=== PATIENT | female | born 1940 | race Caucasian/White ===

== ENCOUNTER 2016-05-31 13:18 | Inpatient (IN) | payer MEDICARE ==
[2016-05-31] VITALS (7 sets, daily range): BP systolic 100–114; BP diastolic 52–64; PULSE 99–112; RESP 16–20; O2SAT 89–97
[~2016-05-31] VITALS: Ht 160 cm; Wt 61.4 kg
--- NOTE | 2016-05-31 13:56 | DRSVH ---
PROCEDURE: X-RAY CHEST, TWO VIEWS ([id number]) INDICATIONS: SOB TECHNIQUE: 2 views of the chest were acquired. COMPARISON: None. FINDINGS: Surgical changes and devices: None. Lungs and pleura: There is a large left pleural effusion. Streaky opacities are present at the right lung base. Mediastinum: Mediastinal contours are normal. Heart size is normal. Bones and chest wall: No suspicious bony abnormalities. Moderate degenerative changes are present wi thin the mid thoracic spine. Soft tissues appear unremarkable. IMPRESSION: 1. Large left pleural effusion. No prior studies are available to determine the acuity of this findin g. 2. Right basilar atelectasis. Dictated by: Sharri Dumont M.D. on 05/31/2016 at 13:53 Approved by: Sharri Dumont M.D. on 05/31/2016 at 13:54
--- NOTE | 2016-05-31 15:13 | ED.REPORT ---
HPI-General Illness Date of Service May 31, 2016 ED Provider: Hola Pena MD A 75 year old, previously healthy, female presents to the ED from [facility] with suspicion for recurrent left pleural effusion. At clinic today, she had recurrent chest pain and SOB that the patient noticed yesterday. She was sent from the clinic to the ED for further evaluation with suspicion for recurrent pleural effusion. CT at [facility] did not identify any cause of the pleural effusion. Per call-in report, Oxygen sat was in the 80's on room air. On arrival, she is 89% on room air. Associated symptoms include loss of appetite, and unintentional weight loss. She was recently diagnosed with Thoracentesis on 05/28/2016, with negative chest XRay. Nursing Notes Stated Complaint: SOB Chief Complaint: Respiratory Distress Nursing Notes Reviewed: Yes Allergies: Coded Allergies: tramadol (Verified Allergy, Severe, confusion, unbalanced, 05/31/16) codeine (Verified Allergy, Mild, itching, 05/31/16) Scheduled Dextroamphetamine/Amphetamine (Adderall) 10 Mg Tablet 10 MG PO DAILY Fluoxetine (Prozac) 20 Mg Capsule 20 MG PO DAILY General Time Seen by MD: 15:12 Chief Complaint Chest pain Hx Obtained From: Patient Arrived By: Walk-in Sudden in Onset?: No Onset Occurred: Yesterday Symptom Duration: Constant Severity: Current: Mild Severity: Maximum: Mild Recent Healthcare: Recent doctor visit Similar Sx Previous: No Past Medical History Past Medical History Pleural effusion with 1 liter of fluid taken off on Thursday, 5 days ago. First chest XRay for this condition was last week. Chest XRay was negative. CT [facility] 05/27/2016. She had a hemorrhoidectomy at outpatient surgery in [facility] and reports that she had no chest pain at that time. The week after this operation ,she started to get a cough, congestion, and back pain then went to a doctor who thought it was a cold. She had Flu Shot this year. Reports: Depression Past Surgical History hemorrhoidectomy at outpatient surgery in [facility]. Colonoscopy. Smoking History Never Smoker Ambulatory Status Independent Review of Systems loss of appetite. Full Review of Systems Constitutional: Reports: Recent wt loss, Denies: Chills, Fever Respiratory: Reports: Shortness of breath Cardiovascular: Reports: Chest pain Complete sys rev & neg: except as marked. Physical Exam Vital Signs Vital Signs Date Time Temp Pulse Resp B/P Pulse Ox O2 Delivery O2 Flow Rate FiO2 05/31/16 18:59 101 18 109/61 93 Nasal Cannula 2 05/31/16 18:16 112 20 105/52 91 Nasal Cannula 2 05/31/16 17:38 112 20 109/60 91 Nasal Cannula 2 05/31/16 15:42 104 20 101/55 89 05/31/16 13:21 36.1 104 18 114/62 97 Room Air Initial VS: Reviewed General/Constitutional: Awake, Alert No distress. Patient is speaking in full sentences. Head / Eyes: Atraumatic, Normocephalic, PERRL, EOMI ENT: Atraumatic, Airway patent Diminished Breath Sounds: Positive: Decreased L (Decreased breath sounds to left base.) Dull to percussion 2[address] on left side. Cardiovascular: Heart rate NL, Regular rhythm, Heart sounds NL, No gallop Heart Rate / Rhythm: Positive: Tachycardia (borderline tachycardia) Heart Sounds / Murmur: Positive: Murmur present... (2/6 systolic murmur) Abdomen: Soft, Non-tender, No palpable mass Upper Extremities Upper Extremity / MS: Atraumatic, Inspection NL Skin: Warm, Dry Neurologic: Oriented X3, Speech NL Interpretation & Diagnostics Interpretation & Diagnostics: 05/28/2016 Lab Report for Thoracentesis Protein: 5.1 glucose: 44 LDH: 533 Amyslase: 513 7072 white blood cells 74012 red blood cells Lab Results Interpretation Result Diagram: 05/31/16 1532 05/31/16 1532 Test 05/31/16 15:32 White Blood Count 11.4th/mm3 (3.8-10.1) Red Blood Count 3.98mil/mm3 (3.90-5.20) Hemoglobin 10.9g/dL (12.0-15.6) Hematocrit 33.3% (35.0-46.0) Mean Corpuscular Volume 83.7fL (81-100) Mean Corpuscular Hemoglobin 27.4pg (27.0-35.0) Mean Corpuscular Hemoglobin Concent 32.7% (32.0-37.0) Red Cell Distribution Width 13.2% (12.3-15.4) Platelet Count 614bil/L (150-400) Erythrocyte Sedimentation Rate 116mm/hr (0-40) Reticulocyte Count,Calculated 1.1% (0.6-2.6) Prothrombin Time 12.0sec (8.1-12.5) Prothromb Time International Ratio 1.12ratio Sodium Level 132mEq/L (134-144) Potassium Level 4.2mEq/L (3.5-5.2) Chloride Level 93mEq/L (97-108) Carbon Dioxide Level 22mmol/L (18-29) Blood Urea Nitrogen 21mg/dL (8-27) Creatinine 0.92mg/dL (0.57-1.00) Estimat Glomerular Filtration Rate 86mL/min (>59) Glucose Level 105mg/dL (60-99) Lactic Acid Level 1.7mmol/L (0.4-2.0) Calcium Level 9.5mg/dL (8.5-10.1) Iron Level 11ug/dL (35-150) Total Iron Binding Capacity 143ug/dL (250-450) Percent Iron Saturation 8%sat (15-50) Unsaturated Iron Binding 132.0ug/dL Ferritin 725ng/mL (13-150) Total Bilirubin 0.6mg/dL (0.0-1.2) Aspartate Amino Transf (AST/SGOT) 16U/L (0-50) Alanine Aminotransferase (ALT/SGPT) 17U/L (0-32) Alkaline Phosphatase 150U/L (25-165) Lactate Dehydrogenase 154U/L (100-190) Troponin T < 0.010ug/L (0.0-0.011) C-Reactive Protein 42.0mg/dL (0.0-0.5) Pro-B-Type Natriuretic Peptide 588.4pg/mL (0-301) Total Protein 7.3g/dL (6.4-8.4) Albumin 2.6g/dL (3.4-5.0) Amylase Level 14U/L (28-100) Procalcitonin 0.78ng/mL (0.00-0.08) Thyroid Stimulating Hormone (TSH) 3.220uIU/mL (0.450-4.500) Free Thyroxine 1.12ng/dL (0.82-1.77) Hold Farah Top Tube Received (Received) ECG Interpretation ECG Interpretation: Rate is 104. Sinus tachycardia. Probable left atrial enlargement. Low voltage, extremity and precordial leads. Time: 15:34 Interpreted by: ED physician X-Ray Chest Interpretation Chest Xray Interpretation: IMPRESSION: 1. Large left pleural effusion. No prior studies are available to determine the acuity of this finding. 2. Right basilar atelectasis. Dictated by: Sharri Dumont M.D. on 05/31/2016 at 13:53 Approved by: Sharri Dumont M.D. on 05/31/2016 at 13:54 Interpretation / Wet Read by: Interpret - Radiologist CT Chest Interpretation CT of the chest with contrast IMPRESSION: Large, at least partially loculated left pleural effusion. No definite mass or adenopathy is appreciated, but a signifigant proportion of the left lung is collapsed by the pleural effusion. Signed by Ganesh Lombardi M.D., Radiologist 05/27/2016, 1104 Interpretation / Wet Read by: Interpret - Radiologist Re-Eval/Medical Decision Med Decision/Clinical Course 75-year-old female with a recurrent left pleural effusion, versus recurred in a very short interval of time, 3 days since a thoracentesis. The etiology of her effusion is unknown. She is hypoxic on room air however on oxygen at rest is comfortable and not hypoxic. She has already had a diagnostic tap would be, we will not do a therapeutic tap tonight as I believe it is more beneficial for the patient if there is a more fully developed plan that can hopefully prevent recurrence and a short interval. Will be admitted to the hospitalist service with pulmonology consult. Source of Hx: Old records Time of Eval: 16:47 Re-Evaluation/Progress Note: Rechecked patient. Time of Eval: 17:32 Re-Evaluation/Progress Note: Rechecked patient. Time of Eval: 18:09 Re-Evaluation/Progress Note: Rechecked patient and explained plan to perform chest CT. Time of Eval: 18:18 Re-Evaluation/Progress Note: Rechecked patient, explained that preliminary tests are coming along fine. Patient reports that they are feeling fine. Completed physical exam. Explained plan for admission. Patient understands and agrees with the plan. all questions addressed. Consultation #1: Referral / Consult Name: Krishna De MD Consulted With: Real Estate Administrator Call Returned at: 18:36 Extraction Operator: Agrees with plan Note: Discussed patient case with Dr. De, Real Estate Administrator. Dr. De agrees to consult tomorrow. Consultation #2: Referral / Consult Name: Sarthak Doyle Consulted With: Hospitalist Call Returned at: 18:56 Extraction Operator: Accepts admit Note: Discussed patient case with Dr. Doyle who accepts patient admit. Counseled Regarding: Diagnosis, Lab results, Need for follow-up, Need for admission Discharge & Departure Primary Impression: Pleural effusion Additional Impression: Hypoxemia Disposition: ADMITTED TO HOSPITAL Referrals: Birgit Ricks PA-C (PCP) Bruce Attestation Portions of this note were transcribed by Matt Lott. I, Dr. Mendez personally performed the history, physical exam and medical decision-making; I reviewed and confirmed the accuracy of the information in the transcribed note. Signed by: Bruce Simeon, 05/31/2016, 2333. copies to: Birgit Ricks PA-C, Donald L MD May 31, 2016 15:13 Matt Lott May 31, 2016 15:20 Matt Lott May 31, 2016 15:20
[2016-05-31] MEDS ORDERED: DEXT10TA8 PO (15:34)
[2016-05-31] MEDS ORDERED: PROZ20 PO (15:34)
[2016-05-31 15:45] LABS: BASOPHILS % (AUTO) 0.2 % (0-3); EOSINOPHILS % (AUTO) 0.3 % (0-5); Mean Corpuscular Hemoglobin 27.4 pg (27.0-35.0); Mean Corpuscular Volume 83.7 fL (81-100); NEUTROPHILS % (AUTO) 78.2 % (40-74); Platelet Count 614 bil/L (150-400)
[2016-05-31 15:54] LABS: INR 1.12 ratio
[2016-05-31 16:03] LABS: TROPONIN T < 0.010 ug/L (0.0-0.011)
[2016-05-31] MEDS ORDERED: Alum-Mag Hydrox-Simeth 30 mL Suspension PO PRN ×2 (19:10→19:15)
[2016-05-31] MEDS ORDERED: Ondansetron 2 mg/mL 2 mL Inj IVPUSH PRN ×2 (19:10→19:15)
--- NOTE | 2016-05-31 19:25 | PCM.HPMED ---
Subjective Date of Service May 31, 2016 Primary Provider: Admitting Physician: Sarthak Doyle Primary Care Physician: Birgit Ricks PA-C Attending Physician: Sarthak Doyle Admit Status: From the Emergency Department Chief Complaint: Shortness of breath History of Present Illness: Patient is a 75-year-old female previously healthy with a reported history of hypothyroidism and mild leukopenia who presents from [facility] due to chest pain and shortness of breath with suspect rapid recurrent pleural effusion. The patient had a thoracentesis on 05/28/2016 which was consistent with an exudative pleural effusion with protein of 5.1 and LDH of 533 and glucose 44. Today the [facility] by RILEY Ricks for chest pain and shortness of breath over the last day. The chest pain is described as left lower chest, worse with movement and inspiration, sharp in nature and rated as a 2 out of 10. Chest pain improved for one day post thoracentesis and then returned. The patient reports a history of cough starting in April that improved significantly post thoracentesis. The cough was described as nonproductive. The patient was sent directly from the primary care clinic to [facility] ED for evaluation where a chest x-ray showed the large left pleural effusion. The patient denies any fever or chills, night sweats. Associated symptoms include loss of appetite and unintentional weight loss the patient reports a 10 pound weight loss over the last month or 2 as well as a 30 pound weight loss over the last year. The patient reports that trouble with swallowing solid food in her upper throat, stating she is needed fluid to help pass the bolus however denies any vomiting or substernal chest pain with swallowing. Review of Systems: A comprehensive review of systems was completed and all are negative except for what is included in the history of present illness. Allergies Coded Allergies: tramadol (Verified Allergy, Severe, confusion, unbalanced, 05/31/16) codeine (Verified Allergy, Mild, itching, 05/31/16) Home Medications Adderall 10 mg daily Prozac 20 mg daily Alprazolam when necessary PMH Osteomyelitis in her left tibia at 10 years old treated without surgery Cataracts Anxiety and depression ADHD Reports Hypothyroidism Reports Mild leukopenia Surgical History Hemorrhoidectomy approximately Mar 28 Colonoscopy Bilateral cataracts Family History Mother of head and neck cancer unknown etiology no report of metastasis Mother had COPD and alcoholism Father's side has alcoholism and reported mental health conditions Social History Occupation: retired Hx Alcohol Use: Yes Alcoholic Drinks Per Day: rarely Hx Substance Use: No Hx Tobacco Use: No Smoking Status: Never Smoker Living Arrangement: Independent [facility] Exam Vital Signs Vital Sign - Last Date Time Temp Pulse Resp B/P Pulse Ox O2 Delivery O2 Flow Rate FiO2 05/31/16 18:59 101 18 109/61 93 Nasal Cannula 2 05/31/16 13:21 36.1 Exam Gen.: Alert and cooperative female, in no acute distress, normal body habitus appears approximate stated age Eyes: Lid lag noted in left eye, pupils dilated 4 mm equal round and reactive to light, anicteric sclera, noninjected conjunctiva HENT: Normocephalic atraumatic, leukoplakia noted on tongue, oropharynx clear no central cyanosis Neck: No noticeable lymphadenitis, supple, notable JVD Cardiovascular: Hyperdynamic S1 and S2, no S3-S4, very mild systolic murmur, pulses intact in radial and dorsalis pedis bilaterally Lungs: Significantly decreased breath sounds heard in left lower base, right base with mild coarse breath sounds, no wheezing noted. Prior left thoracentesis site healing without fluctuance or surrounding erythema. Abdomen: Normoactive bowel sounds soft, nondistended, nontender, no organomegaly Extremities: No clubbing cyanosis or edema noted Lymphatics: Lymphadenitis noted in the left axilla : No Chapman in place Neuro: Cranial nerves II through XII grossly intact, moves all extremities Psych: Tangential thought, normal affect, depressed mood Lab and Diagnostics Result Diagram: 05/31/16 1532 05/31/16 1532 X-Rays, CTs and MRIs X-RAY CHEST, TWO VIEWS ([id number]) IMPRESSION: 1. Large left pleural effusion. No prior studies are available to determine the acuity of this finding. 2. Right basilar atelectasis. Dictated by: Sharri Dumont M.D. on 05/31/2016 at 13:53 Approved by: Sharri Dumont M.D. on 05/31/2016 at 13:54 Additional Diagnostics: 05/28/2016 thoracentesis labs Protein: 5.1 Glucose: 44 LDH: 533 Amylase: 513 White blood cells: 7072 Red blood cells: 11,020 Assessment & Plan 75-year-old previously healthy female presents with shortness of breath secondary to rapid recurrent pleural effusion. 1. Left sided pleural effusion likely exudative, present on admission, acute -Records indicate that the patient had the pleural effusion drained 3 days prior on May 28, with CT evidence of locations per report in chart -Thoracentesis labs from 05/28/2016 in chart shows a exudative effusion with notable increases in LDH 533, and protein 5.1 and low glucose 44, with WBC 7073 and red blood cells 11,020 -Pulmonology was consulted from the ED and will see the patient June 01, 2016 -Studies show that typically initial thoracentesis is often negative on cytology , with repeat thoracentesis cytology increasing likelihood of returning positive after rapid re-expansion -Likely repeat thoracocentesis with labs for pleural effusion including cytology June 01 -O2 monitoring overnight with supplemental oxygen as necessary -Possible infectious versus malignant given exudative with low glucose -SED Rate 116 and CRP 42 highly indicative of infection - Zosyn 3.375gm IV every 8hrs 2. SIRS positive with mild leukocytosis, present on admission, acute - Patient reports a history of mild leukopenia with reports of regular white blood cell count approximately 3000 - Patient is currently positive SIRS criteria for infection with tachycardia 110s and mild leukocytosis with notable 11% bandemia on CBC smear - Lactic acid negative 1.7, procalcitonin mildly positive at 0.68, low temperature 36.1 - tachycardia is likely secondary to hypoxia due to pleural effusion, continue to monitor with O2 supplementation - Monitor for signs of infection given previous exudative pleural effusion with WBC count of 7000+ and low glucose 44 - Rapid recurrent exudative pleural effusion with low glucose and history of weight loss makes neoplasm versus infection a possibility - blood cultures ordered - SED Rate 116 and CRP 42 highly inidicative of infection - Zosyn 3.375gm IV every 8hrs - monitor for leukocystosis, procal, hyper/hypothermia, worsening tachycardia 3. history of acute hypoxic respiratory failure, present on admission - likely secondary to pleural effusion - records indicate the O2 saturation of 83% at her primary care office on the day of admission - O2 sat of 89% on admission - O2 monitoring and supplemental oxygen as necessary 4. elevated anion gap metabolic acidosis, present on admission, likely chronic - AG of 17, bicarb of 22, lactic acid of 1.7 - patient does not have significant risk factors for anion gap other than lactic acid, with no renal disease, no ASA, no diabetes, no methanol/ethanol - patient is not appearing tachypnic for respiratory compensation, this is likely a chronic process - continue to monitor 5. Hyponatremia and hypochloremia, present on admission, acute - Sodium of 132 and chloride of 93 at admission - Patient appears volume overloaded with pleural effusion and JVD - Encourage fluids and diet - Monitor 6. Normocytic Anemia, present on admission, presumed chronic - Hemoglobin of 10.9 at admission - MCV of 83 is low normal - Anemia panel with iron, TIBC, ferritin given low normal MCV more often consistent with iron deficiency given history of chronic hemorrhoids 7. Thrombocytosis, present on admission, acute - Platelets are 614,000 and a notable stress phase reactant - Monitor 8. history of ADHD, present on admission, chronic - continue outpatient Adderall 10mg daily 9. History of Anxiety and Depression, present on admission, chronic - continue outpatient Fluoxetine daily 10. History of hypothyroidism, present on admission, chronic - TSH and free T4 ordered DVT prophylaxis Heparin 5000U SQ every 12 Bowel regimen available when necessary Antiemetics available when necessary Pain medication available when necessary The patient will be admitted to inpatient status with likely length of stay greater than to mid nines given current primary diagnosis required therapies and possible complications. No barriers to discharge noted at this time Pain Evaluation: Adequate Pain Control GI Prophylaxis: Not indicated VTE Prophylaxis Indicated: Meets Criteria for Anticoag Therapy VTE Prophylaxis: Sub-Q Heparin (Unfractionated) Resuscitation Status: CPR: Attempt Resuscitation Attending Statement The patient was seen and examined together with Dr. Landeros on 05/31 and I agree with the history, exam and plan as outlined in the note above. González Landeros DO May 31, 2016 19:25 Shay Burroughs MD May 31, 2016 21:43
[2016-05-31 20:15] LABS: BASOPHILS % (AUTO) 0 % (0-3); EOSINOPHILS % (AUTO) 0 % (0-5); MONOCYTES % (AUTO) 10 % (4-12); NEUTROPHILS % (AUTO) 66 % (40-74)
[2016-05-31] MEDS: Heparin 5,000 Unit/mL Inj SUBQ SCH (23:52)
--- NOTE | 2016-06-01 | NUR ---
admit to floor from ED. Alert / tired and fatigued. Wanting to sleep. BC's drawn and Zosyn given. No SOB at rest, 02 remains on 2 lt's overnight with sats steady in the 90's. Lungs markedly decreased. Moderate left flank pain with movement. 1/2 percocet given per patients request. She felt a whole percocet may be to much. Drowsy but tolerated pain med well. Admit deferred until more alert this morning. Plan for morning CXR and consult with rubber factory worker.
[2016-06-01] MEDS ORDERED: 0.9% Sodium Chloride 250 ML ONE (00:06)
[2016-06-01] MEDS: Piperacillin-Tazo 3.375 Gm Inj 3.375 GM in Dextrose 5% Minibag Plus 50 ML IV SCH ×4 (00:31→23:31)
[2016-06-01 00:43] VITALS: BP 104/60; PULSE 97; RESP 16; O2SAT 97
[2016-06-01] MEDS: oxyCODONE-Acetamin 5-325 mg Tablet PO PRN ×3 (01:52→18:22)
[2016-06-01 05:46] VITALS: BP 92/53; PULSE 90; RESP 16; O2SAT 94
[2016-06-01 06:47] LABS: BASOPHILS % (AUTO) 0.1 % (0-3); EOSINOPHILS % (AUTO) 1.3 % (0-5); Mean Corpuscular Hemoglobin 27.5 pg (27.0-35.0); Mean Corpuscular Volume 82.4 fL (81-100); NEUTROPHILS % (AUTO) 68.5 % (40-74); Platelet Count 605 bil/L (150-400)
[2016-06-01] MEDS: Heparin 5,000 Unit/mL Inj SUBQ SCH (09:15)
[2016-06-01] MEDS: Amphetamines (Mixed) 10 mg Tablet PO SCH (09:24)
--- NOTE | 2016-06-01 11:21 | DRSVH ---
PROCEDURE: X-RAY CHEST ONE VIEW, PORTABLE ([id number]) INDICATIONS: pleural effusion TECHNIQUE: One view of the chest was acquired. COMPARISON: [facility], CR, XR CHEST 2VW, 05/31/2016, 13:37. FINDINGS: Surgical changes and devices: None. Lungs and pleura: There is a large left pleural effusion, slightly increased in size. No pneumothora x. There are bibasilar atelectasis. Mediastinum: Mediastinal contours appear normal. Heart size is normal. Bones and chest wall: No suspicious bony lesions. Overlying soft tissues appear unremarkable. IMPRESSION: Large left effusion, slightly increased. Dictated by: Braxton Jaeger M.D. on 06/01/2016 at 11:18 Approved by: Braxton Jaeger M.D. on 06/01/2016 at 11:19
--- NOTE | 2016-06-01 11:40 | PCM.PNMED ---
Subjective Date of Service Jun 01, 2016 Subjective Patient was seen and examined at bedside today. Patient denies any chest pain, nausea, vomiting, diarrhea. Patient complains of shortness of breath. Patient is very tearful today and states that she feels that her depression is increased secondary to her recurrence of the pleural effusion and the patient is unsure as to the etiology. The patient also feels that her depression medication is not working the way it should and she is feeling more depressed. Overnight events: None Exam Vital Signs Vital Sign - Last Date Time Temp Pulse Resp B/P Pulse Ox O2 Delivery O2 Flow Rate FiO2 06/01/16 06:33 Supplement Oxygen 06/01/16 05:46 36.8 90 16 92/53 94 2.00 Intake and Output 05/31/16 05/31/16 06/01/16 Cumulative From/Thru 15:00 23:00 07:00 05/31/16 13:21 - 06/01/16 06:53 Intake Total 500 ml 500 ml Output Total 150 ml 150 ml Balance 350 ml 350 ml Intake Oral 400 ml 400 ml IV Total 100 ml 100 ml Output Urine Total 150 ml 150 ml # Voids 0 0 Exam Physical Exam: GEN: Patient was awake, alert, responding appropriately to questions, very tearful HEENT: Pupils equal round and reactive to light, extraocular eye muscles intact , Neck soft supple, trachea midline, nomocephalic/atraumatic CV: +S1/S2, regular rate and rhythm, systolic murmur auscultated Respiratory: Clear to auscultation on the right, decreased breath sounds on the left GI: +bowel sounds x4, soft, compressible, nontender to palpation EXT: no clubbing, cyanosis, edema Neuro: Cranial nerves II-XII grossly intact Psych: mood and affect were depressed IVs and Medications Medications Reviewed: Medications were reviewed in detail Lab and Diagnostics Result Diagram: 06/01/1662406/01/16624 X-Rays, CTs and MRIs X-RAY CHEST, TWO VIEWS ([id number]) IMPRESSION: 1. Large left pleural effusion. No prior studies are available to determine the acuity of this finding. 2. Right basilar atelectasis. Dictated by: Sharri Dumont M.D. on 05/31/2016 at 13:53 Approved by: Sharri Dumont M.D. on 05/31/2016 at 13:54 Additional Diagnostics 05/28/2016 thoracentesis labs Protein: 5.1 Glucose: 44 LDH: 533 Amylase: 513 White blood cells: 7072 Red blood cells: 11,020 Assessment & Plan 75-year-old previously healthy female presents with shortness of breath secondary to rapid recurrent pleural effusion. Left sided pleural effusion likely exudative, present on admission, acute ( infectious versus malignant) -Records indicate that the patient had the pleural effusion drained 3 days prior on May 28, with CT evidence of locations per report in chart -Thoracentesis labs from 05/28/2016 in chart shows an exudative effusion with notable increases in LDH 533, and protein 5.1 and low glucose 44, with WBC 7073 and red blood cells 11,020 -Pulmonology was consulted from the ED for possible thoracentesis today -O2 monitoring overnight with supplemental oxygen as necessary - Continue Zosyn 3.375gm IV every 8hrs SIRS positive with mild leukocytosis, present on admission, acute -Leukocytosis resolved, procalcitonin trending down -Blood cultures pending -Fungal antibody results pending - Continue Zosyn 3.375gm IV every 8hrs - Continue to monitor Acute hypoxic respiratory failure, present on admission - likely secondary to pleural effusion - O2 monitoring and supplemental oxygen as necessary Elevated anion gap metabolic acidosis, present on admission, likely chronic - Anion gap trending down currently 14 - Continue to monitor Hyponatremia and hypochloremia, present on admission, acute -Sodium and chloride are trending up -Patient is currently volume overloaded so we will hold off on IV fluids at this time -Encourage good oral intake -Continue to monitor Normocytic Anemia, present on admission, presumed chronic -Secondary to iron deficiency anemia - Start iron supplementation Thrombocytosis, present on admission, acute - Platelets are 614,000 and a notable stress phase reactant - Continue Monitor History of ADHD, present on admission, chronic - continue outpatient Adderall 10mg daily History of Anxiety and Depression, present on admission, chronic - Increase fluoxetine to 40 mg daily History of hypothyroidism, present on admission, chronic - TSH and free T4 within normal limits DVT prophylaxis Heparin 5000U SQ every 12 Bowel regimen available when necessary Antiemetics available when necessary Pain medication available when necessary Disposition: Patient will have a tap of her left lung secondary to pleural effusion later today by pulmonology. We will continue to follow up with cytology results. Patient is very tearful today and her antidepressant has been increased. We will continue to monitor. GI Prophylaxis: Not indicated VTE Prophylaxis: Sub-Q Heparin (Unfractionated) VTE Mechanical Devices: Intermittant Pneumatic CD Resuscitation Status: CPR: Attempt Resuscitation Mala Valdovinos Jun 01, 2016 11:40 9. History of Anxiety and Depression, present on admission, chronic - continue outpatient Fluoxetine daily 10. History of hypothyroidism, present on admission, chronic - TSH and free T4 ordered DVT prophylaxis Heparin 5000U SQ every 12 Bowel regimen available when necessary Antiemetics available when necessary Pain medication available when necessary The patient will be admitted to inpatient status with likely length of stay greater than to mid nines given current primary diagnosis required therapies and possible complications. No barriers to discharge noted at this time GI Prophylaxis: Not indicated VTE Prophylaxis: Sub-Q Heparin (Unfractionated) VTE Mechanical Devices: Intermittant Pneumatic CD Resuscitation Status: CPR: Attempt Resuscitation ValdovinosMlaa DO Jun 01, 2016 11:40
[2016-06-01 13:37] LABS: APPEARANCE,URINE HAZY (CLEAR,HAZY); COLOR,URINE DARK YELLOW (YELLOW); OCCULT BLOOD,URINE TRACE (NEGATIVE); PH,URINE 5.5 (5.0-8.0)
--- NOTE | 2016-06-01 15:43 | NUR ---
Social Work- Initial Assessment: Data & Assessment: See Initial Assessment. EMR reviewed. Patient is a 75 y/o female that admitted on 05/31/16 for left pulmonary effusion per H&P. SW met with patient at bedside to discuss discharge planning, SW role reviewed and initial assessment complete. Patient was alert and orientx3. Patient confirmed that Mina Lozano was her NOK and stated that he was also her DPOA. SW requested a copy of patient's Advance Directive/DPOA. Patient confirmed that her PCP is Birgit Ricks PA-C. Patient's insurance is medicare and [employer] supplement. Patient has no LTC or VA benefits. Patient readmit score is 1 no-risk. Patient lives at home with her son in a two story home with 12 steps to enter and 16 steps on the inside. Patient is independent at baseline and drives. Patient has no HH or SNF history. Patient does not have any discharge needs at this time. SW provided phone number and plan on white board in room. SW will continue to follow. Plan:Pt to likely discharge home no needs. Pt's family is supportive. SW will continue to follow. Angel Angel LMSW, LORENZO Addendum: 06/01/16 at 1554 by ANGEL ANGEL Amended: Links added.
[2016-06-01 16:21] VITALS: BP 118/72; PULSE 106; RESP 21; O2SAT 95
--- NOTE | 2016-06-01 16:50 | NUR ---
resp sats 89-92% RA but she runs tachycardic 100-110s, sats mid 90s on 2L, lung sounds diminished, rare non-productive cough, up ambulating in room without feeling SOB. She seems slightly confused and this is not her norm according to her son and herself. She is also unsteady, her son says this is not normal either
[2016-06-01] MEDS ORDERED: Heparin 5,000 Unit/mL Inj SUBQ SCH (20:30)
--- NOTE | 2016-06-01 21:09 | CONS ---
[address] [address] CONSULTATION REPORT PATIENT: MARLEEN CAMACHO : 1940 MR#: [id number] ADMIT: 05/31/2016 JOB ID: [id number] DATE OF SERVICE: 06/01/2016 REQUESTING PHYSICIAN: Mala Valdovinos DO REASON FOR CONSULTATION: Pleural effusion. HISTORY OF PRESENT ILLNESS: The patient is a 75-year-old, female who begins her story with hemorrhoid surgery in March of this year. She states the surgery was day surgery, did not have any particular problems, had the requisite postop pain but seemed to do okay. Subsequent to that, however, she developed some left-sided back pain. This bothered her as the pain increased. She was given various medications with variable results. Her story is somewhat vague on this point. In any case, she subsequently developed a nonproductive cough, then developed some anterior chest pain. Unclear whether it was pleuritic or not. Subsequently had some shortness of breath. Was found to have a large pleural effusion. This was tapped five days ago. She says the fluid looked like "flat [employer]." She states her breathing improved for much of the day on Thursday, but then Thursday evening she noted that her shortness of breath began to recur. Was seen on Thursday by her healthcare provider, advised to go to the emergency room here at [facility]. There, chest x-ray showed a large left pleural effusion. The patient states that her breathing is comfortable at rest. She says she has some difficulty negotiating any distance. Minimal cough. No sputum production. No hemoptysis. There is some vague chest pain. She describes it as a bit more lateral on the left lower chest wall. No particular problem with headache. She has had headaches in the past, but none over the last few years. No diplopia. No nausea, vomiting, or diarrhea. Had some constipation but some stool softeners loosened the stools. She has lost her appetite over the past month or so. Has lost about 10 pounds during that time. Has not noted any rash. No subcu nodules. No prior history of lung disease. Never had pneumonia. No exposure to tuberculosis that she is aware of. There has been no change in her voice. No apparent difficulties swallowing though other examiners mention this. REVIEW OF SYSTEMS: No anginal type chest pain. No sore throat. No neck pain. Has not noted any palpable lymph nodes or subcutaneous nodules. Did have what sounds like geographic tongue. Was tried on a number of what are probably antifungal agents without resolution. No joint pain nor history of arthritis or arthralgias nor myalgias. 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 Has never taken thyroid replacement medications. Recent thyroid evaluation shows no particular problems. Ultrasound was apparently unremarkable. MEDICATIONS: The patient unable to recall her medications. The list includes: Adderall, Prozac, Percocet. ALLERGIES INCLUDE: 1. Codeine. 2. Tramadol. 3. She states she is allergic to a number of antibiotics as well, though allergies consist of intolerance. States that she when she was a child she had osteomyelitis of the foot requiring prolonged course of penicillin. PETS: Three dogs, two cats. EXPOSURE: No known exposure to tuberculosis. GEOGRAPHIC HISTORY: Patient was born in [place], lived variously in [place], [place], [place] before moving to [place] in the 1949s. She did occasionally travel to [facility], but that has not been for many years. 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 HOBBIES: The patient does not engage in any hobbies, which expose her to dust, fumes, nor solvents. FAMILY HISTORY: Mother of cancer. The patient was unclear as to the primary. Chart notes head and neck cancer. OBJECTIVE: Temperature 36.8. Pulse 90. Respiratory rate 16. Blood pressure varies between 92/53 and 108/55. O2 sat on 2 L of oxygen by nasal cannula is 94%; on room air, it is 91%. General appearance: Well developed, thin female lying in bed in no acute distress. Not wearing supplemental oxygen. Cannulae are in the bed. The patient is intermittently tearful when she talks about the uncertainty of her own diagnosis. Also is quite tearful when she speaks of her 's from cancer, possibly lung cancer. Head normocephalic. Eyes: Conjunctivae are pink and moist. No scleral icterus. Pupils 2-3 mm and reactive. Nose mild erythema. No edema. Throat: A light tannish colored tongue. Oropharynx not well-visualized. Lymph nodes: Not palpable. Thyroid: Not palpable. Chest: Trachea is midline and mobile. There is some dullness to percussion at the left base. Diminished breath sounds at the right base and to some extent at the left base. Good breath sounds throughout the right lung. There are fairly good breath sounds in the right mid lung field and apex. No use of accessory muscles. Heart: Regular rhythm with occasional premature beats. Heart tones seem normal. No S3. Good heart tones bilaterally. Abdomen is soft. Nondistended. Nontender. Liver and spleen not palpable. No masses were palpable. Bowel tones were active. Back: No CVA or cervical, thoracic, lumbar spinal tenderness. Extremities: No clubbing, cyanosis, or pretibial edema. Breasts without masses or tenderness. No skin changes. Nipples normal. Neurologic: Moving all four extremities. Fairly good strength. Sensory grossly intact. IMAGING: Chest x-ray shows opacification of the greater part of the left lung field. However on lateral, the opacification seems to be loculated anteriorly with good visualization of spine and posterior lung. LABORATORY DATA: Shows a white count of 8300 with 68 polymorphonuclears, no bands, 12 lymphocytes, 17 monocytes. However, a diff on white count from May 31, 2016, 15 hours previously, describes 66 polymorphonuclears, 11 bands, 13 lymphocytes, 10 monocytes, hemoglobin 10, platelet count 605,000. Sodium 133, potassium 4.3, chloride 95, CO2 is 24, BUN 15, creatinine 0.6, glucose 88, lactic acid is 0.9, calcium 8.9 with an albumin of 2.4. Total bilirubin normal at 0.6, AST 23, ALT 16, alkaline phos normal at 147. Albumin 2.4. Procalcitonin elevated at 0.54 though decreasing from yesterday's value of 0.78. INR is 1.12. Fungal antibodies pending. Admitting note indicates a thoracentesis at [place] from May 28, 2016 that shows an LDH of 533, protein of 5.1, glucose of 44. White cell count of 7073 and 11,000 red cells. ASSESSMENT: Pleural effusion. The patient appears to have a significant opacification of the left lung. However that is not particularly borne out by examination, and the lateral suggests that the fluid may be loculated anteriorly. Will need to get radiology's input about whether ultrasound with possible subsequent repeat thoracentesis or CT scan would be the most appropriate way of approaching the problem. Will arrange for studies for tomorrow morning when ultrasound, thoracentesis, and CT scan can all be arranged in appropriate order. Etiology unclear. The patient is a lifelong nonsmoker. Suspect, however, that the patient's was a smoker as it appears he of lung cancer. In addition, he had some chemical exposures in [employer]. Would wonder about possible exposure to asbestos on recall by the patient. No compelling history for infection. Slowly progressive fungal disease, might be entertained. Doubt mycobacterial disease, though atypicals would be possible. Underlying non-Hodgkin's lymphoma. Vasculitis collagen vascular disease might also be considered. However, I think at this point, re-evaluating the chest either with repeat ultrasound or possibly other approaches that might be suggested by CT scan would be in order. Fortunately, she is comfortable at this point, and we have some time to formulate a reasonable approach. Thyroid studies are pending to see if this might be playing a role. PLAN: 1. Review of films with Radiology to discern whether ultrasound or CT scan would be the first test followed by interventions dictated by the initial studies. 2. Serology for cryptococcus, though unlikely to be streptococcal infection. And urine for Strep pneumoniae antigen as well as Legionella. Thank you so much, Dr. Valdovinos, for asking me to see this most interesting individual. Will follow her respiratory status very closely along with you. TIME SPENT: Upwards of three hours.
[2016-06-02 00:08] VITALS: BP 104/69; PULSE 94; RESP 20; O2SAT 96
[2016-06-02 05:09] VITALS: BP 102/64; PULSE 95; RESP 18; O2SAT 96
--- NOTE | 2016-06-02 05:26 | NUR ---
Activity Pt very confused and anxious at beginning of shift, but able to reorient easily. [place] bed alarm placed since pt has been unsteady on her feet. Pt has been on 2L overnight, CPOx 93%. Pt has denied pain all shift and would like to stay away from pain meds if at all possible. MRSA swab sent. Waiting to obtain random urine sample.
[2016-06-02 06:16] LABS: BASOPHILS % (AUTO) 0.2 % (0-3); EOSINOPHILS % (AUTO) 0.7 % (0-5); MONOCYTES % (AUTO) 10.6 % (4-12); Mean Corpuscular Hemoglobin 27.3 pg (27.0-35.0); Mean Corpuscular Volume 83.2 fL (81-100); NEUTROPHILS % (AUTO) 78.1 % (40-74); Platelet Count 623 bil/L (150-400)
[2016-06-02] MEDS ORDERED: 0.9% Sodium Chloride 1,000 ML IV ONE (07:40)
[2016-06-02] MEDS: ALPRAZolam 0.5 mg Tablet PO PRN (09:07)
[2016-06-02] MEDS: Piperacillin-Tazo 3.375 Gm Inj 3.375 GM in Dextrose 5% Minibag Plus 50 ML IV SCH (09:11)
[2016-06-02] MEDS: Amphetamines (Mixed) 10 mg Tablet PO SCH (09:50)
--- NOTE | 2016-06-02 10:36 | ABG ---
DateTimeAnalyzed 10:30:00 -_ pH ____6.649 - 7.350 7.450 FIO2 ___21.0__ -% Drawn By ___DR.____ - Date/Time Notified____ 10:36:00 -_ Notified By btl - Notified Whom ___[facility] - Gaudencio test N/A -
--- NOTE | 2016-06-02 10:50 | NUR ---
Post Thoracentesis Pt has denied any pain today, up with assistance, tolerating well. Pt had thoracentesis today = about 600cc was obtained. Pt tolerated this well. Pt was a little anxious this morning, PRN Xanax .25 effective for this. Pt occasionally confused but reoriented easily. Family at bedside now. Cont to monitor.
--- NOTE | 2016-06-02 11:23 | DRSVH ---
PROCEDURE: CT CHEST WITHOUT CONTRAST ([id number]) INDICATIONS: Pleural effusion. S/P thoracentesis 10:30. TECHNIQUE: Noncontrast 5 mm thick sections acquired from the pulmonary apices to the posterior costophrenic angl es. 7 mm thick coronal and sagittal MIP reformats were then acquired. For radiation dose reduction, the following was used: automated exposure control, adjustment of mA and/or kV according to patient size. COMPARISON: [facility], CR, XR CHEST 1VW (PORTABLE), 06/01/2016, 8:11. FINDINGS: Image quality: Diagnostic. Lungs and pleura: There is a very large left-sided pleural effusion evident that demonstrates periphe ral enhancement, involving the adjacent pleura, suspicious for a subtle loculated pleural effusion/em pyema occupies the majority of the left lung with corresponding prominent left pulmonary collapse. O nly a small portion of the left upper lobe remains aerated. No significant right-sided pleural effus ion is evident. There is no large area of consolidation on the right. There is no pneumothorax. No definite lung masses appreciated. Evaluation for pulmonary nodules and masses on the left is limite d, however. No obvious right-sided pulmonary nodules are appreciated. Mediastinum: The heart is normal in size. There is a small pericardial effusion. Coronary artery at herosclerosis appears to be present. There is aortic atherosclerosis. The main pulmonary arterial t runk does not appear to be enlarged. No mediastinal adenopathy by size criteria. No mediastinal mas s is evident. No large hiatal hernia is appreciated. Bones and chest wall: No suspicious bony lesions. No vertebral body compression fractures. No axil milton or supraclavicular adenopathy by size criteria. Thyroid gland is grossly unremarkable. Abdomen: Visualized upper abdominal solid organs and bowel loops appear normal in the absence of con trast. IMPRESSION: 1. Large loculated left-sided pleural effusion is suspicious for possible empyema. 2. Extensive pulmonary consolidation is most suggestive of atelectasis. Superimposed pneumonia tab ot be entirely excluded. 3. Small pericardial effusion. Dictated by: Nazario Guardado M.D. on 06/02/2016 at 10:18 Approved by: Nazario Guardado M.D. on 06/02/2016 at 10:21
[2016-06-02 12:27] LABS: BFWBC 31000 /mm3; MONOCYTES,BODY FLUID 0 %; OTHER CELLS,BODY FLUID 0
[2016-06-02 13:01] LABS: GLUCOSE,PLEURAL FLUID < 2 mg/dL; TOTAL PROTEIN,PLEURAL FLUID 5.1 g/dL
[2016-06-02] MEDS ORDERED: Dexamethasone 4 mg/mL Inj ONE (13:15)
[2016-06-02] MEDS ORDERED: MetoCLOpramide 5 mg/mL 2 mL Inj ONE (13:15)
[2016-06-02] MEDS ORDERED: Rocuronium 10 mg/mL 5 mL Inj ONE (13:15)
[2016-06-02] MEDS ORDERED: Glycopyrrolate 0.2 MG/ML 1mL Inj ONE (13:15)
[2016-06-02] MEDS ORDERED: fentaNYL-PF 50 mCg/mL 2 mL Inj ONE (13:15)
[2016-06-02] MEDS ORDERED: Propofol 10,000 mCg/mL 20 mL Inj ONE (13:15)
[2016-06-02] MEDS ORDERED: Neostigmine 1 mg/mL 10 mL Inj ONE (13:15)
--- NOTE | 2016-06-02 14:14 | NUR ---
NUTRITION ASSESSMENT: ASSESS: 75YO F admit with L pleural effusion of unknown etiology s/p thoracentesis with plan for potential CT or ultrasound; pt currently NPO. Pt reports 30lb weight loss, trouble swallowing. PMHX: hypothyroid, leukopenia DIET: NPO. Previously 0-50% on General LABS: Alb 2.5, Alk Phos 278, Glu 115, Na 130 MEDS: Reviewed GI: NO BM recorded WEIGHT: 61.3kg BMI: 23.0; 30lb weight loss; 12% weight loss x 1 yr EST.NEEDS: WT LOSS (25-35kcal/kg;1.0-1.5g/kg pro) Kcal: 3103-5098 Pro: 60-90g NUTRITION DIAGNOSIS: (1) Inadequate oral intake related to decreased swallowing ability/depressed appetite per report as evidenced by po intake 0-50% x 2d, reported weight loss. INTERVENTION: (1) Pt. currently NPO, as diet advances recommend obtain speech therapy eval. (2) Will add supplements as diet advances. MONITOR/EVALUATE: Diet advancement, po intake, texture tolerance, lab values. F/U per moderate risk.
--- NOTE | 2016-06-02 15:02 | PCM.PNMED ---
Subjective Date of Service Jun 02, 2016 Subjective Patient was seen and examined at bedside. Patient currently denies any chest pain, shortness of breath, nausea, vomiting, diarrhea. However the patient is still very anxious and tearful. Overnight events: None Exam Vital Signs Vital Sign - Last Date Time Temp Pulse Resp B/P Pulse Ox O2 Delivery O2 Flow Rate FiO2 06/02/16 07:49 Supplement Oxygen 06/02/16 05:09 36.7 95 18 102/64 96 2.00 Intake and Output 06/01/16 06/01/16 06/02/16 Cumulative From/Thru 14:59 22:59 06:59 05/31/16 13:21 - 06/02/16 06:46 Intake Total 1050 ml 653 ml 2203 ml Output Total 400 ml 500 ml 1050 ml Balance 650 ml 153 ml 1153 ml Intake Oral 1050 ml 400 ml 1850 ml IV Total 253 ml 353 ml Output Urine Total 400 ml 500 ml 1050 ml # Voids 0 # Bowel Movements 0 0 Exam Physical Exam: GEN: Patient was awake, alert, responding appropriately to questions, however the patient was tearful HEENT: Pupils equal round and reactive to light, extraocular eye muscles intact , Neck soft supple, trachea midline, nomocephalic/atraumatic CV: +S1/S2, regular rate and rhythm, no murmurs auscultated Respiratory: Decreased breath sounds on the left, no wheezes, rales, rhonchi GI: +bowel sounds x4, soft, compressible, nontender to palpation EXT: no clubbing, cyanosis, edema Neuro: Cranial nerves II-XII grossly intact Psych: mood and affect were anxious IVs and Medications Medications Reviewed: Medications were reviewed in detail Lab and Diagnostics Result Diagram: 06/02/16 0600 06/02/16 0600 X-Rays, CTs and MRIs X-RAY CHEST, TWO VIEWS ([id number]) IMPRESSION: 1. Large left pleural effusion. No prior studies are available to determine the acuity of this finding. 2. Right basilar atelectasis. Dictated by: Sharri Dumont M.D. on 05/31/2016 at 13:53 Approved by: Sharri Dumont M.D. on 05/31/2016 at 13:54 Additional Diagnostics 05/28/2016 thoracentesis labs Protein: 5.1 Glucose: 44 LDH: 533 Amylase: 513 White blood cells: 7072 Red blood cells: 11,020 Assessment & Plan 75-year-old previously healthy female presents with shortness of breath secondary to rapid recurrent pleural effusion. Left sided pleural effusion likely exudative, present on admission, acute ( infectious versus malignant) -Records indicate that the patient had the pleural effusion drained 3 days prior on May 28, with CT evidence of locations per report in chart -Thoracentesis labs from 05/28/2016 in chart shows an exudative effusion with notable increases in LDH 533, and protein 5.1 and low glucose 44, with WBC 7073 and red blood cells 11,020 -Pulmonology was consulted from the ED for possible thoracentesis today -O2 monitoring overnight with supplemental oxygen as necessary - Continue Zosyn 3.375gm IV every 8hrs -Repeat thoracentesis today SIRS positive with mild leukocytosis, present on admission, acute -Leukocytosis resolved, procalcitonin trending down -Blood cultures pending -Fungal antibody results pending - Continue Zosyn 3.375gm IV every 8hrs - Continue to monitor Acute hypoxic respiratory failure, present on admission - likely secondary to pleural effusion - O2 monitoring and supplemental oxygen as necessary Elevated anion gap metabolic acidosis, present on admission, likely chronic - Anion gap trending down currently 14 - Continue to monitor Hyponatremia and hypochloremia, present on admission, acute -Sodium and chloride are trending up -Patient is currently volume overloaded so we will hold off on IV fluids at this time -Encourage good oral intake -Continue to monitor Normocytic Anemia, present on admission, presumed chronic -Secondary to iron deficiency anemia - Start iron supplementation Thrombocytosis, present on admission, acute - Platelets are 614,000 and a notable stress phase reactant - Continue Monitor History of ADHD, present on admission, chronic - continue outpatient Adderall 10mg daily History of Anxiety and Depression, present on admission, chronic - Increase fluoxetine to 40 mg daily -Start Xanax 0.25 mg when necessary anxiety 3 times a day History of hypothyroidism, present on admission, chronic - TSH and free T4 within normal limits DVT prophylaxis Heparin 5000U SQ every 12 Bowel regimen available when necessary Antiemetics available when necessary Pain medication available when necessary Disposition: The patient had a repeat thoracentesis today. Only 600 mL were able to be extracted and then it seemed that loculations were noted. Patient was then sent for CT scan and it was found that the patient has an empyema. General surgery was called and the patient will most likely go for a surgical procedure to have the empyema removed along with the loculations. This case was discussed with Dr. Peters of pulmonology critical care. GI Prophylaxis: Not indicated VTE Prophylaxis: Sub-Q Heparin (Unfractionated) VTE Mechanical Devices: Intermittant Pneumatic CD Resuscitation Status: CPR: Attempt Resuscitation Mala Valdovinos DO Jun 02, 2016 15:02
[2016-06-02 15:30] VITALS: BP 100/50; PULSE 115; RESP 16; O2SAT 96
[2016-06-02] MEDS: cefTRIAXone Inj 2,000 MG in Dextrose 5% Minibag Plus 50 ML IV SCH (16:04)
--- NOTE | 2016-06-02 16:28 | PCM.PROC ---
Procedure Note Date of Service: Jun 02, 2016 Pre Procedure Diagnosis: Left-sided pleural effusion Post Procedure Diagnosis: Left sided Empyema Procedure: Left-sided Thoracentesis Provider and It Manager: Joe Avitia DO PGY2 Attending Wet Machine Cutter Dr. Sho Kyle MD Indication for Procedure: Diagnostic and therapeutic thoracentesis Findings: Empyema, initially by pH and confirmed with fluid analysis Procedural Analgesia: local 1% lidocaine Procedure Details: A time-out was completed verifying correct patient, procedure, site, and positioning. The patients Left side was prepped and draped in a sterile manner after the appropriate infiltration level was confirmed by ultrasound. 1% lidocaine was used to anesthetize the surrounding skin to the pleura. Continuous aspirate for pleural fluid with each incremental advancement prior to anaesthetized with lidocaine. Small amount of blood mixed with brown fluid was aspirated when needle advanced to 4cm. Needle with lidocaine syringe was withdraw at that point. A 10-blade scalpel was then used to make a small incision. A catheter device over introducer needle was then advanced through with continuous aspiration till cloudy-brown fluid was obtained. The thoracentesis catheter was threaded without difficulty. The patient had 600ml of cloudy fluid removed. Dr. Sho Kyle MD was present for the entire procedure. A post-procedure CT-chest without contrast scan was ordered and the fluid will be sent for several studies. Specimen: 100cc thoracentesis fluid sent for analysis Post Procedure Plan: Consult surgery for VATS Attending Statement [facility] Addendum: Procedure was performed under my direct supervision. No acute complications were noted. Ph 6.[address] chest was ordered for evaluation and possibility of VATS for loculated empyema. Sho Sheppard MD Pulm. /Joe Kumar DO Jun 02, 2016 16:28 Sho Sheppard MD Jun 02, 2016 17:17 Sho Sheppard MD Jun 02, 2016 17:17
--- NOTE | 2016-06-02 18:00 | PCM.PNMED ---
Subjective Date of Service Jun 02, 2016 Subjective Pulmonary Service consultation: Progress note Patient is a 75yof with MHx significant for hemorrhoidectomy last 03/2016 had chest pain, cough, and sob, initially presented to [facility] where workup revealed Left sided pleural effusion with throacentesis demonstrating exudative fluid (05/28). She subsequently rebound with similar symptoms after 1day and was transfer to [facility] ER (05/31) for further evaluations. Pulmonary service was requested for workup of pleural effusion. Patient with complaints of SOB and vague chest pain again today. She denies any cough, no fever, chills, or night sweats. Vitals stable overnight. She sat well with 2L nasal canula. Though WBC elevated 12.2 and procal 0.52. CRx (06/01) redemonstrate Large left effusion, slightly increased from prior day. Electrolytes significant Na 130. Exam Vital Signs Vital Sign - Last Date Time Temp Pulse Resp B/P Pulse Ox O2 Delivery O2 Flow Rate FiO2 06/02/16 15:30 38.0 115 16 100/50 96 Room Air 06/02/16 05:09 2.00 Intake and Output 06/01/16 06/01/16 06/02/16 Cumulative From/Thru 15:00 23:00 07:00 05/31/16 13:21 - 06/02/16 06:46 Intake Total 1050 ml 653 ml 2203 ml Output Total 400 ml 500 ml 1050 ml Balance 650 ml 153 ml 1153 ml Intake Oral 1050 ml 400 ml 1850 ml IV Total 253 ml 353 ml Output Urine Total 400 ml 500 ml 1050 ml # Voids 0 # Bowel Movements 0 0 Exam Gen: Lying comfortably at 30degree head tilt HEENT: PERRLA, Anicteric sclerae, moist conjunctivae, and no lid lag. Neck: supple, no JVD Cardio: Regular rate and rhythm with no murmurs, rubs, or gallops appreciated Pulm: + airsound right, dull left side to percussion. No pain with inspiration , no wheezes, coarse sounds, or crackles Abd: positive bowel tone. Soft, nontender, nondistended. Extremities: No clubbing, cyanosis, edema, or lymphadenopathy appreciated. Skin: Normal temperature, turgor, and texture; no rash, ulcers, or subcutaneous nodules appreciated. Neuro: Cranial nerves grossly intact. moving equally on all four limbs. Psyc: Normal mood and affect. AoX3 IVs and Medications Medications Reviewed: Medications were reviewed in detail Lab and Diagnostics Result Diagram: 06/02/16 0600 06/02/16 0600 X-Rays, CTs and MRIs X-RAY CHEST, TWO VIEWS ([id number]) IMPRESSION: 1. Large left pleural effusion. No prior studies are available to determine the acuity of this finding. 2. Right basilar atelectasis. Dictated by: Sharri Dumont M.D. on 05/31/2016 at 13:53 Approved by: Sharri Dumont M.D. on 05/31/2016 at 13:54 PROCEDURE: CT CHEST WITHOUT CONTRAST ([id number]) INDICATIONS: Pleural effusion. S/P thoracentesis 10:30. IMPRESSION: 1. Large loculated left-sided pleural effusion is suspicious for possible empyema. 2. Extensive pulmonary consolidation is most suggestive of atelectasis. Superimposed pneumonia cannot be entirely excluded. 3. Small pericardial effusion. Dictated by: Nazario Guardado M.D. on 06/02/2016 at 10:18 Additional Diagnostics 05/28/2016 thoracentesis labs Protein: 5.1 Glucose: 44 LDH: 533 Amylase: 513 White blood cells: 7072 Red blood cells: 11,020 Assessment & Plan Patient is a 75yof with MHx significant for hemorrhoidectomy last 03/2016 had chest pain, cough, and sob, initially presented to [facility] where workup revealed Left sided pleural effusion with throacentesis demonstrating exudative fluid (05/28). She subsequently rebound with similar symptoms after 1day and was transfer to [facility] ER (05/31) for further evaluations. Chest x- ray coupled with bedside ultrasound suggestive of loculated fluids. Wide differential, she may have developed post-viral pneumonia, neoplasm with exudative pleural effusion with subsequent infection are possibilities. Pulmonology team went ahead, with consent and completed diagnostic/therapeutic thoracentesis this AM. Pleural fluid brown-colored, pH 6.6, and analysis showing empyema. This was further [id number] by CT-chest s/p procedure. Problem List 1. Large Left Empyema 2. Hypoxia 3. Leukocytosis PLAN - Consult Surgeon Dr. Cabrera for VATS - Broad coverage Abx ceftriaxone and metronidazole - NC to maintain sat >92% Total time spent 60min GI Prophylaxis: Not indicated VTE Prophylaxis: Sub-Q Heparin (Unfractionated) VTE Mechanical Devices: Intermittant Pneumatic CD Resuscitation Status: CPR: Attempt Resuscitation Joe Avitia DO Jun 02, 2016 17:20 Joe Avitia DO Jun 02, 2016 17:20
[2016-06-02 19:55] VITALS: BP 101/62; PULSE 117; RESP 17; O2SAT 92
--- NOTE | 2016-06-02 21:13 | NUR ---
TO OR Pt left to OR at 2100 via [facility]. Son, Mina, went with patient.
[2016-06-02] MEDS ORDERED: Lactated Ringer's 500 ML IV PRN (21:21)
[2016-06-02] MEDS ORDERED: Lactated Ringer's 1,000 ML IV SCH (21:21)
--- NOTE | 2016-06-02 21:21 | PCM.HPANE ---
Patient Data Surgeon Admitting Provider:Sarthak Doyle Attending Provider:Sarthak Doyle Primary Care Physician:Birgit Ricks PA-C Other Provider: Reason for Visit Left Pulmonary Effusion Ht/WT & BMI Height (Feet): 5 Height (Inches): 3 Weight (Kilograms): 61.36 Body Mass Index Allergies Coded Allergies: tramadol (Verified Allergy, Severe, confusion, unbalanced, 05/31/16) codeine (Verified Allergy, Mild, itching, 05/31/16) Medications Reported Medications Fluoxetine (Prozac)20 Mg [id number] Mg PO DAILY Ref 0 05/31/16 Dextroamphetamine/Amphetamine (Adderall)10 Mg [id number] Mg PO DAILY Ref 0 05/31/16 History HEENT History: Positive for:: Cataracts Hx of Heart Problems?: No Hx of Respiratory Problem?: Yes Respiratory History: Positive for:: Dyspnea (current) Other Resp Pertinent History: Thoracentesis 05/28/16 Neurological History: Positive for:: Dizziness Hx Musculoskeletal Problems?: No Hx Surgeries?: Yes (hemorroid surgery) History Blood Transfusions: Positive for:: Accept Blood Products? Denies:: Blood Transfusions Occupation: retired Hx Alcohol Use: YesAlcoholic Drinks Per Day: rarelyHx Substance Use: No Smoking Status: Never Smoker Stop/Bang Treated for Sleep Apnea?: No Do You Have a CPAP Machine?: No S-Snoring: Do You Snore Loudly: No T-Tired: feel tired, fatigued: Yes O-Obsered: Observed not breath: No P-Blood Pressure: treated: No B- Body Mass Index > 35 kg/m2: No A- Age over 50: Yes N- Neck Large Circumference: No G- Gender Male: No RADHA Total Score: 1 Risk Assessment Category Category 1A: Patient has history of documented sleep apnea, and HAS NOT received any narcotic, sedative or anesthesia administration during this stay. Category 1B: Patient has history of documented sleep apnea, and HAS received any narcotic , sedative or anesthesia administration during this stay Category 2: Patient has SUSPECTED Obstructive Sleep Apnea, and HAS received any narcotic , sedative or anesthesia administration during this stay. Category 3: Patient has SUSPECTED Obstructive Sleep Apnea and HAS NOT received narcotic, sedative or anesthesia administration during this stay. Category 4: Outpatient in Procedural Areas with known sleep apnea or who screen positive for High Risk via the STOP/BANG questionnaire. Exam Exam Vital Signs Vital Signs Date Time Temp Pulse Resp B/P Pulse Ox O2 Delivery O2 Flow Rate FiO2 06/02/16 15:30 38.0 115 16 100/50 96 Room Air General Appearance: Alert, Oriented X3, Cooperative, No Acute Distress HEENT/AIRWAY: MP 3 Lungs: Diminished Heart: Exam Unremarkable Meds/Labs/Diagnostics Admission Meds Current Medications Fluoxetine HCl 40 mg 40 mg DAILY PO Last administered on 06/02/16 09:07; Start 06/02/16 at 08:30 Sodium Chloride 1,000 ml @ 0 mls/hr Q0M ONCE IV Last administered on 07:46; Start 06/02/16 at 07:40; Stop 06/02/16 at 07:41; Status DC Ceftriaxone Sodium/Dextrose/ Water (Rocephin Inj/ D5W Minibag Plus) 50 ml @ 100 mls/hr Q24H IV Last administered on 06/02/16 16:04; Start 06/02/16 at 15: 00 Metronidazole HCl (Flagyl) 500 mg TID PO Last administered on 06/02/16 17:54; Start 06/02/16 at 16:35 Labs Test 05/31/16 15:32 05/31/16 20:12 06/01/16 06:25 06/01/16 06:45 Erythrocyte Sedimentation Rate 116mm/hr (0-40) Reticulocyte Count,Calculated 1.1% (0.6-2.6) Prothrombin Time 12.0sec (8.1-12.5) Prothromb Time International Ratio 1.12ratio Iron Level 11ug/dL (35-150) Total Iron Binding Capacity 143ug/dL (250-450) Percent Iron Saturation 8%sat (15-50) Unsaturated Iron Binding 132.0ug/dL Ferritin 725ng/mL (13-150) Lactate Dehydrogenase 154U/L (100-190) Troponin T < 0.010ug/L (0.0-0.011) Pro-B-Type Natriuretic Peptide 588.4pg/mL (0-301) Amylase Level 14U/L (28-100) Thyroid Stimulating Hormone (TSH) 3.220uIU/mL (0.450-4.500) Free Thyroxine 1.12ng/dL (0.82-1.77) Hold Farah Top Tube Received (Received) Band Neutrophils % 11% (1-5) Hematology Comments Procalcitonin 0.54ng/mL (0.00-0.08) C-Reactive Protein 33.8mg/dL (0.0-0.5) Test 06/01/16 08:10 06/01/16 08:14 06/01/16 12:15 06/01/16 13:03 Lactic Acid Level 0.9mmol/L (0.4-2.0) Urine Legionella pneumophilia Ag Negative (Negative) Urine Color Dark yellow (YELLOW) Urine Appearance Hazy (CLEAR,HAZY) Urine pH 5.5 (5.0-8.0) Urine Specific [place] 1.020 (1.003-1.035) Urine Protein Tracemg/dL (NEG,TRACE) Urine Glucose (UA) Negativemg/dL (NEGATIVE) Urine Ketones Tracemg/dL (NEGATIVE) Urine Occult Blood Trace (NEGATIVE) Urine Nitrite Negative (NEGATIVE) Urine Bilirubin Negative (NEGATIVE) Urine Urobilinogen 2.0mg/dL (NORMAL) Urine Leukocyte Esterase Negative (NEGATIVE) Urine RBC 0-2/hpf (0-2) Urine WBC 0-5/hpf (0-5) Urine Epithelial Cells Occasional/hpf (NONE-MOD) Urine Crystals Amorphous urates (NONE Urine Bacteria None/hpf (NONE-FEW) Urine Hyaline Casts None/lpf (NONE) Urine Granular Casts None seen (NONE SEEN) Urine Waxy Casts None seen (NONE SEEN) Urine Red Blood Cell Casts None seen (NONE SEEN) Urine White Blood Cell Casts None seen (NONE SEEN) Urine Mucus None seen (None Seen) Urine Trichomonas None seen (NONE SEEN) Urine Yeast None (NONE SEEN) Urinalysis Comment None Urine Culture Reflexed Not indicated Test 06/02/16 06:00 06/02/16 10:30 06/02/16 10:42 White Blood Count 12.2th/mm3 (3.8-10.1) Red Blood Count 3.99mil/mm3 (3.90-5.20) Hemoglobin 10.9g/dL (12.0-15.6) Hematocrit 33.2% (35.0-46.0) Mean Corpuscular Volume 83.2fL (81-100) Mean Corpuscular Hemoglobin 27.3pg (27.0-35.0) Mean Corpuscular Hemoglobin Concent 32.8% (32.0-37.0) Red Cell Distribution Width 13.2% (12.3-15.4) Platelet Count 623bil/L (150-400) Neutrophils (%) (Auto) 78.1% (40-74) Lymphocytes (%) (Auto) 9.7% (14-46) Monocytes (%) (Auto) 10.6% (4-12) Eosinophils (%) (Auto) 0.7% (0-5) Basophils (%) (Auto) 0.2% (0-3) Sodium Level 130mEq/L (134-144) Potassium Level 4.5mEq/L (3.5-5.2) Chloride Level 91mEq/L (97-108) Carbon Dioxide Level 25mmol/L (18-29) Blood Urea Nitrogen 10mg/dL (8-27) Creatinine 0.58mg/dL (0.57-1.00) Estimat Glomerular Filtration Rate 146mL/min (>59) Glucose Level 115mg/dL (60-99) Calcium Level 8.8mg/dL (8.5-10.1) Total Bilirubin 0.9mg/dL (0.0-1.2) Aspartate Amino Transf (AST/SGOT) 55U/L (0-50) Alanine Aminotransferase (ALT/SGPT) 26U/L (0-32) Alkaline Phosphatase 278U/L (25-165) Total Protein 6.3g/dL (6.4-8.4) Albumin 2.5g/dL (3.4-5.0) Body Fluid Source Pleural fluid Body Fluid Color Yellow (Clear) Body Fluid Appearance Cloudy Body Fluid WBC 35671/mm3 Body Fluid RBC 62830/mm3 Body Fluid Polynuclear WBCs 80% Body Fluid Lymphocytes 20% Body Fluid Monocytes 0% Body Fluid Eosinophils 0% Body Fluid Basophils 0% Body Fluid Lactate Dehydrogenase 3892U/L Pleural Fluid Total Protein 5.1g/dL Pleural Fluid Glucose < 2mg/dL Hold Urine Received (Received) Plan Impression Patient chart reviewed, patient interviewed and anesthestic plan with risks, benefits, and alternatives discussed, and informed consent obtained. ASA Physical Status: ASA3 Severe Disease (pleural effusion, empyema) Anesthetic Support Modalities: Arterial Line Anesthetic Plan: GA Bene/Risks/Altern/Consents: Yes HP Complete Prior to Induction: Yes Ata Avitia MD Jun 02, 2016 20:56
[2016-06-02] MEDS ORDERED: HYDROmorphone 1 mg/mL Inj IVPUSH PRN (21:25)
[2016-06-02] MEDS ORDERED: Phenylephrine 10,000 mCg/mL Inj IVPUSH PRN (21:25)
[2016-06-02] MEDS ORDERED: Dexamethasone 4 mg/mL Inj IVPUSH PRN (21:25)
[2016-06-02] MEDS ORDERED: MetoCLOpramide 5 mg/mL 2 mL Inj IVPUSH PRN (21:25)
[2016-06-02] MEDS ORDERED: fentaNYL-PF 50 mCg/mL 2 mL Inj IVPUSH PRN (21:25)
[2016-06-02] MEDS ORDERED: EPHEDrine Sulfate 50 mg/mL Inj IVPUSH PRN (21:25)
[2016-06-02] MEDS ORDERED: Ondansetron 2 mg/mL 2 mL Inj IVPUSH PRN (21:25)
[2016-06-02] MEDS ORDERED: Bupivacaine Liposome 1.3% 20 mL Inj ONE (22:20)
--- NOTE | 2016-06-02 22:28 | CONS ---
[address] [address] CONSULTATION REPORT PATIENT: MARLEEN CAMACHO : 1940 MR#: [id number] ADMIT: 05/31/2016 JOB ID: [id number] DATE OF SERVICE: 06/02/2016 CHIEF COMPLAINT: Left empyema. REQUESTING PHYSICIAN: This consultation is requested by Dr. Sheppard. HISTORY OF PRESENT ILLNESS: This is a 75-year-old woman with a left empyema. She presented to [facility] last week and underwent thoracentesis. Cultures were pending at the time she was discharged. She thought that the fluid looked brown at the time. Her breathing improved, but then she began to have increasing shortness of breath. Two days ago, she was seen by her health care provider and was advised to proceed to [facility]. Chest x-ray revealed a large left pleural effusion. Dr. Sheppard performed a thoracentesis of this fluid this morning which showed white blood cell count of 31,000, lymphocytes of 20, white blood cells 80, and the fluid is cloudy. Culture results were obtained from [facility] and revealed Streptococcus intermedius. Only a small amount of the fluid could be removed. CT scan of the chest revealed large left fluid collection suspicious for empyema. PAST MEDICAL HISTORY: 1. Osteomyelitis in her left tibia at [age] years old. Treated without surgery. 2. Cataracts. 3. Anxiety and depression. 4. ADHD. 5. Hypothyroidism. PAST SURGICAL HISTORY: 1. Hemorrhoidectomy on March 28, 2016. 2. Colonoscopy. 3. Bilateral cataract surgery. HOME MEDICATIONS: Include Adderall, Prozac, and alprazolam. In the hospital, she is on ceftriaxone and metronidazole for antibiotics, and previously she was receiving Zosyn. ALLERGIES: 1. CODEINE. 2. TRAMADOL. FAMILY HISTORY: Her mother had a head and neck cancer. She also had COPD and alcoholism. Her father had Alzheimer's disease. SOCIAL HISTORY: No tobacco use. Rare alcohol use. No recreational drugs. She lives in [place] and her son is present with her today. His name is Mina. REVIEW OF SYSTEMS: An 11-point review of systems was performed and was negative except as noted in HPI. PHYSICAL EXAMINATION: Vital signs: Temperature 38.0, heart rate 115, blood pressure 100/58, respiratory rate is 16. Saturation 96% on room air. General: Awake and alert, mild distress. Head: Normocephalic. Neck: Supple. Cardiac: Regular rhythm, tachycardia. Respiratory: Clear bilaterally at the apices. Clear at the right base, no breath sounds at the left base. Abdomen: Soft, nontender. Extremities: No gross defects. Neurologic: No gross deficits. Psychiatric: She is anxious. Normal cognition and judgment. LABORATORIES: Pleural fluid labs are as noted above. White blood cell count is 12, hematocrit 33, platelets 623. Comprehensive metabolic panel is within normal limits with exception of sodium 130, chloride 91, AST 55, alkaline phosphatase 278, albumin 2.5. IMAGING: CT scan of the chest performed this morning is personally revealed and reveals a large loculated left-sided pleural effusion consistent with empyema. There is extensive pulmonary consolidation. Small pericardial effusion. ASSESSMENT: A 75-year-old woman with a left-sided empyema. The organism is Streptococcus intermedius. I recommend left thoracoscopy with washout and chest tube placement. We discussed the risks and benefits, and the patient elects to proceed. This will be performed this evening. The patient's son was with her and all of their questions were answered.
[2016-06-02] MEDS ORDERED: Bupivacaine-MPF 0.25%/EPI 30 mL Inj INJ ONE (23:00)
[2016-06-02] MEDS ORDERED: Bupivacaine Liposome 1.3% 20 mL Inj INFILTRATE ONE (23:01)
[2016-06-03] VITALS (14 sets, daily range): BP systolic 95–140; BP diastolic 46–66; PULSE 77–95; RESP 16–25; O2SAT 94–100
[2016-06-03] MEDS ORDERED: HYDROmorphone PCA 0.2 mg/mL 30 mL Inj IV PRN (00:20)
--- NOTE | 2016-06-03 00:22 | CONS ---
[address] [address] CONSULTATION REPORT PATIENT: MARLEEN CAMACHO : 1940 MR#: [id number] ADMIT: 05/31/2016 JOB ID: [id number] DATE OF SERVICE: 06/02/[address] Mala Valdovinos for this consultation. REASON FOR CONSULTATION: Empyema. HISTORY OF PRESENT ILLNESS: The patient is a 75-year-old woman who is usually in fairly good health. She has a few problems, including osteomyelitis in childhood, cataracts and some hypothyroidism, but otherwise she has been doing pretty well. In March, she had to be intubated as part of a hemorrhoid surgery done in [place]. Following that, she developed a progressive cough, left-sided pleuritic chest pain, malaise, fevers, sweats, progressive weight loss and generalized weakness. These problems culminated in a recent visit to the clinic at [facility], in which she was discovered to have a pleural effusion, which was tapped in five days ago as an outpatient at [facility]. During the course of tapping this effusion, some of the patient's symptoms improved and appropriate cultures and studies were done. Unfortunately, the patient worsened with increasing basically nonproductive cough, worsening shortness of breath and increasing left pleuritic chest pain associated with continued fevers and chills. For that reason, she was sent to [facility] Emergency Department so that she could obtain pulmonary evaluation, as well as additional evaluation of this recurrent left pleural effusion. Today, the patient underwent another thoracentesis here at [facility], and there are ongoing discussions about possible VATS procedure. ID consultation is requested regarding evaluation of this complex left-sided pleural effusion which sounds as if it has been present for weeks. The patient notes that prior to her hemorrhoid surgery and the development of this cough, left pleuritic chest pain, malaise, weight loss and pleural effusion on the left, she had been doing very well. Since that time, she states her course has been one of overall decline. She has not had any significant associated GI or symptoms. PAST MEDICAL HISTORY: 1. Hypothyroidism. 2. Recent hemorrhoidectomy. 3. Osteomyelitis as a child, resolved. SOCIAL HISTORY: The patient lives independently in the [facility]. She has a very large extended family. She is a lifelong nonsmoker, though her late smoked. She drinks alcohol rarely, if ever, and does not use any illicit substances. She originally [place] from [place], has not traveled widely recently. FAMILY HISTORY: Negative for tuberculosis in first and second-degree relatives. REVIEW OF SYSTEMS: Was done. The patient states she has occasional headaches which are a lifelong issue and are thought to be migrainous, but not too bad recently. She states she has had problems after cataract surgery and was seeing well out of the right eye. She states she has had some thrush recently which has been evaluated and apparently treated, though it is unclear exactly with what. The thrush has arisen after the hemorrhoid surgery as well. The patient denies any stiff neck. She obviously has the dry cough, shortness of breath with exertion and left pleuritic chest pain. No nausea, vomiting, diarrhea. No dysuria, urgency or frequency. No swelling of the joints are noted anywhere. No significant peripheral edema and no difficulty with ambulation other than just fatigue. Remainder of the review of systems negative. PHYSICAL EXAMINATION: Reveals a febrile woman, temperature just bumped to 38 degrees almost as I am dictating this, that has been recorded. Pulse 115, respiratory rate 16, blood pressure 100/50. She is saturating well on room air. The patient is in no acute distress. She does look tired, however, she is alert and oriented x3. Eyes without conjunctivitis or scleral icterus. Nose appears normal. No thrush is noted on oral exam. The neck is supple without adenopathy. There is no JVD. Lungs with decreased breath sounds at the left base. Right lung is clear. Cardiac tones: Regular rate and rhythm without significant murmur. The abdomen is soft and nontender without organomegaly. No suprapubic fullness. No Chapman catheter. Extremities without evidence of synovitis. Joints with reasonable range of motion. No skin rash. No peripheral edema. She is neurologically intact with good strength in all four extremities. LABORATORIES: Include white count of 12,200 today, was 8000 yesterday. Platelet count elevated at 623. Creatinine 0.58, AST is 55, alk phos 278, albumin 2.5, procalcitonin 0.54. White blood count in the pleural fluid that was obtained this morning 31,000. Protein 5.1. Glucose 0. LDH 3900. A variety of studies are pending including crypto antigen, Fungitell, urine Legionella antigen and streptozyme. Urine pneumococcal antigen is negative. Blood culture is negative. Thoracentesis fluid without polys. IMAGING: Includes a chest CT done earlier today, which shows an enhancing left pleural effusion consistent with empyema. Some pulmonary atelectasis and/or pneumonia is also noted. Chest x-ray with atelectasis. The notes in the chart show that as of a couple days ago the cultures from the original left-sided thoracentesis at [facility] were negative. This evening, I called [facility], and it turns out, that in addition to the routine culture they also did a Thioglycolate Broth culture which yielded Streptococcus intermedius. IMPRESSION: This patient has left-sided Streptococcus intermedius empyema. Strep intermedius is the emerging as the biggest single cause of empyema in the [place]. This is a destructive strep which likes to form abscesses and empyema when it finds itself in the right location. Treatment is a course predicated on complete drainage with either a chest tube or a video-assisted thoracoscopy procedure and appropriate long-term antibiotics. The susceptibilities should be out within a day or so from [facility], and we will obtain those, but almost always Streptococcus intermedius would be highly sensitive to ceftriaxone as well as usually to penicillin. RECOMMENDATIONS: 1. Additional drainage as per Dr. Cabrera, either a chest tube or VATS. 2. Ceftriaxone 2 g once a day. 3. Because of the possibility that there are concomitant anaerobes present in the empyema I would add Flagyl 500 p.o. b.i.d. for a period of time to the ceftriaxone. As her situation improves, we can make a final decision about length of therapy. 4. No additional changes in antibiotics are indicated at this time. Thank you very much for this consult.
--- NOTE | 2016-06-03 00:55 | PCM.ANEP1 ---
Post Anesthesia Phase 1 PACU Phase 1 Assessment Date of Service: Jun 02, 2016 Vital Signs Vital Signs Date Time Temp Pulse Resp B/P Pulse Ox O2 Delivery O2 Flow Rate FiO2 06/03/16 00:50 82 16 140/50 97 Simple Mask 8 127/46 06/03/16 00:45 79 16 115/55 97 Simple Mask 8 06/03/16 00:40 83 16 119/50 97 Simple Mask 8 113/59 06/03/16 00:35 36.6 83 16 123/59 97 Simple Mask 8 06/02/16 19:55 37.7 117 17 101/62 92 Room Air Anesthetic Administered: GA Level of Alertness: Sleepy, easy to arouse GARCIA's with Equal Strength: Yes Pain: No Pain Scale Score: 6 Nausea or Vomiting: No Oxygen Delivery: Simple Mask Lungs: Diminished Dermatome Level: Full Sensation Ata Avitia MD Jun 03, 2016 00:55
--- NOTE | 2016-06-03 01:05 | PCM.ANEP2 ---
Post Anesthesia Evaluation ASA/CMS Post Anesthesia VS in Patient's Normal Range?: Yes Resp Stable; Airway Patent?: Yes CV Function & Hydration Stable: Yes Mental Status Recovered?: Yes Pain control Satisfactory?: Yes N/V Control Satisfactory?: Yes Ata Avitia MD Jun 03, 2016 01:05
[2016-06-03] MEDS: Acetaminophen IV 1,000 MG in IV Premix 1 EACH IV SCH ×4 (02:31→18:37)
--- NOTE | 2016-06-03 03:29 | OP ---
[address] [address] OPERATIVE REPORT PATIENT: MARLEEN CAMACHO : 1940 MR#: [id number] ADMIT: 05/31/2016 JOB ID: [id number] DATE OF SURGERY: 06/03/2016 SURGEON: Anjali Cabrera MD PREOPERATIVE DIAGNOSIS(ES): Left empyema. POSTOPERATIVE DIAGNOSIS(ES): Left empyema. PROCEDURE PERFORMED: Left thoracoscopy with decortication and washout. ASSISTANTS: Colton Link PA-C; River Moreno MS-3. An boilermaker's assistant was necessary for dissection. HISTORY OF PRESENT ILLNESS: This is a 75-year-old woman who presented with a left-sided pleural effusion. She underwent a thoracentesis twice and Streptococcus intermedius grew out from the 1st culture over the course of several days. A CT scan was repeated and revealed loculated fluid consistent with empyema. FINDINGS: 1. Thick inflammatory rind on the chest wall, lung, and diaphragm. 2. Greater than 1200 mL of purulent fluid was aspirated. Cultures had been sent previously in the day after thoracentesis and therefore additional cultures were not sent. 3. At the completion of the decortication, the entire lung was able to expand easily. DESCRIPTION OF PROCEDURE: The patient was brought to the operating room and placed in supine position. General anesthesia with a double lumen endotracheal tube was induced. A warming blanket and SCDs were placed. Antibiotics had been infused previously on the hospital floor. An arterial line was placed by anesthesia. She was repositioned into right lateral decubitus with a beanbag. All pressure points were well padded. The operative field was prepped and draped in sterile fashion. A pause was performed to confirm the correct patient, procedure, site, and side. A 10 mm port was placed at the anterior axillary line at the level of the inframammary crease. Copious purulent fluid was suctioned out. Two additional ports were placed, the first was 1 hand's breadth posterior to the initial port at the same rib space level. The second was 3 rib spaces inferior and between the first 2 ports to triangulate them. The chest cavity was found to be filled with purulent fluid and an inflammatory rind covered the lung, chest wall, and diaphragm. A complete decortication was performed and the lung, which had been collapsed at the beginning the procedure, was able to re-expand. Copious suctioning and irrigating was required, and a substantial amount of inflammatory tissue was removed with ringed forceps from all surfaces within the chest cavity. Once this was complete, a chest tube was placed. A 28-Slovenian straight chest tube was placed in the anterior port site proceeding toward the apex. A 2nd basilar chest tube was placed in the inferior port site. This tube was bent. It was secured into position. The 2 larger port sites were closed at the muscular level with 3-0 Vicryl. Monocryl was used for the posterior port site at the skin. Sterile dressings were placed and the chest tubes were hooked up to a Pleur-evac set to 20 cm of water suction. The patient was awakened from surgery and taken to the postoperative care unit in good condition. ESTIMATED BLOOD LOSS: 10 mL. SPECIMENS: None. COMPLICATIONS: None.
--- NOTE | 2016-06-03 05:33 | NUR ---
Post op Pt arrived from PACU at 0145 to room 1029, sleepy but easy to arouse, AXO x2, GARCIA. Pt is on 2L O2 via NC with CPOx mid 90s 02 sats. Chest tubes in place x2 to left lateral side attached to wall suction, sero sang drainage much greater with upper chest tube. Pt denies pain or nausea. Pt has only had sips of water so far. IV Tylenol given as scheduled. Pt has not been OOB yet. [place] alarm in place.
[2016-06-03 06:41] LABS: Mean Corpuscular Volume 83.5 fL (81-100)
--- NOTE | 2016-06-03 08:01 | PCM.PNSURG ---
Subjective Visit Information: Reason for Visit Left Pulmonary Effusion Surgery/Surgery Date Post-Op Day # Date of Admission: May 31, 2016 at 19:14 Hospital Day # Subjective: VATS finished ~0100 last night. Stable since then. 250mL serosanguinous fluid from L apical chest tube, no air leak 55mL "" from basilar chest tube, no air leak CXR shows L lung is well expanded, diffuse opacity compared to R Objective Vital Sign- Last 8 Hours Date Time Temp Pulse Resp B/P Pulse Ox O2 Delivery O2 Flow Rate FiO2 06/03/16 06:37 37.2 83 17 104/66 97 Nasal Cannula 2.00 06/03/16 05:13 Supplement Oxygen Chest Tubes 06/03/16 02:10 Supplement Oxygen Chest Tubes 06/03/16 01:49 36.9 83 17 109/66 100 Nasal Cannula 2.00 06/03/16 01:15 36.6 78 23 108/53 95 Nasal Cannula 3 06/03/16 01:10 77 23 104/48 94 Nasal Cannula 3 06/03/16 01:05 80 25 112/59 95 Nasal Cannula 3 06/03/16 01:00 78 21 101/48 95 Nasal Cannula 3 06/03/16 00:55 78 16 116/50 95 Nasal Cannula 3 06/03/16 00:55 Simple Mask 06/03/16 00:50 82 16 140/50 97 Simple Mask 8 127/46 06/03/16 00:45 79 16 115/55 97 Simple Mask 8 06/03/16 00:40 83 16 119/50 97 Simple Mask 8 113/59 06/03/16 00:35 36.6 83 16 123/59 97 Simple Mask 8 Intake and Output- Last 8 Hour 06/03/16 Cumulative From/Thru 07:00 05/31/16 13:21 - 06/03/16 06:27 Intake Total 127 ml 4512 ml Output Total 390 ml 2000 ml Balance -263 ml 2512 ml Intake Oral 0 ml 1850 ml IV Total 127 ml 2662 ml Output Urine Total 200 ml 1800 ml Drainage Total 190 ml 190 ml Estimated Blood Loss 10 ml # Voids 0 # Bowel Movements 0 0 General: Other (sleeping comfortably) Chest: Chest tubes are straight, no kinking, no air leak, serosanguinous fluid draining Result Diagram: 06/03/1615 06/03/16614 Assessment & Plan Impression POD0-1 VATS decortication doing well Problems: Plan Chest tubes to suction today as she has been out of the OR only a few hours. OK to resume general diet from surgical standpoint. VTE Prophylaxis: Sub-Q Heparin (Unfractionated) Resuscitation Status: CPR: Attempt Resuscitation Anjali Cabrera MD Jun 03, 2016 08:01
--- NOTE | 2016-06-03 08:01 | DRSVH ---
PROCEDURE: X-RAY CHEST ONE VIEW, PORTABLE ([id number]) INDICATIONS: VATS empyema TECHNIQUE: One view of the chest was acquired. COMPARISON: [facility], CR, XR CHEST 1VW (PORTABLE), 06/03/2016, 7:08. [facility] pital, CR, XR CHEST 1VW (PORTABLE), 06/01/2016, 8:11. [facility], CT, CT CHEST WO CON, , 10:45. FINDINGS: Surgical changes and devices: There are 2 thoracostomy tubes in the left base. Lungs and pleura: There is a small to moderate left pleural effusion and trace right pleural effusio n. There is left basilar consolidation or atelectasis. No significant change from the last exam. Mediastinum: Mediastinal contours appear normal. Heart size is normal. Bones and chest wall: No suspicious bony lesions. Overlying soft tissues appear unremarkable. IMPRESSION: Stable chest radiograph. Dictated by: Braxton Jaeger M.D. on 06/03/2016 at 7:56 Approved by: Braxton Jaeger M.D. on 06/03/2016 at 8:00
--- NOTE | 2016-06-03 08:57 | DRSVH ---
PROCEDURE: X-RAY CHEST ONE VIEW, PORTABLE ([id number]) INDICATIONS: VATS empyema TECHNIQUE: One view of the chest was acquired. COMPARISON: [facility], CT, CT CHEST WO CON, 06/02/2016, 10:45. [facility], CR, XR CHEST 1VW (PORTABLE), 06/03/2016, 0:46. FINDINGS: Surgical changes and devices: There are 2 pleural drains projected at the left base. Lungs and pleura: Tiny left apical pneumothorax. There is left basilar consolidation or atelectasis. Small residual left effusion. There is trace right effusion.No pleural effusions or pneumothorax. L ungs are clear. Mediastinum: Mediastinal contours appear normal. Heart size is normal. Bones and chest wall: No suspicious bony lesions. Overlying soft tissues appear unremarkable. IMPRESSION: 1. There are 2 pleural drains in the left base. 2. Possible tiny left apical pneumothorax. 3. Small residual left effusion and tiny right effusion. Dictated by: Braxton Jaeger M.D. on 06/03/2016 at 8:53 Approved by: Braxton Jaeger M.D. on 06/03/2016 at 8:56
[2016-06-03] MEDS ORDERED: Amphetamines (Mixed) 10 mg Tablet PO ONE (09:16)
[2016-06-03] MEDS: Amphetamines (Mixed) 10 mg Tablet PO SCH (09:18)
[2016-06-03 10:11] LABS: Cryptococcal Ag Negative (Negative)
--- NOTE | 2016-06-03 11:23 | PCM.PNMED ---
Subjective Date of Service Jun 03, 2016 Subjective PULMONOLOGY PROGRESS NOTE Patient is a 75yof who initially presented to [facility] where thoracentesis revealed left-sided pleural effusion demonstrating exudative fluid (05/28). She subsequently worsened with similar symptoms and transferred to [facility] ER (05/31) for further evaluation. Overnight, patient underwent surgery -- left thoracoscopy with decortication and washout. This morning, patient states that she is coughing but overall feels improved. Her breathing feels the same but denied the chest pressure that she had been feeling. Also denies nausea and vomiting. Exam Vital Signs Vital Sign - Last Date Time Temp Pulse Resp B/P Pulse Ox O2 Delivery O2 Flow Rate FiO2 06/03/16 07:40 Supplement Oxygen Chest Tubes 06/03/16 06:37 37.2 83 17 104/66 97 2.00 Intake and Output 06/02/16 06/02/16 06/03/16 Cumulative From/Thru 15:00 23:00 07:00 05/31/16 13:21 - 06/03/16 06:27 Intake Total 1116 ml 1066 ml 127 ml 4512 ml Output Total 550 ml 390 ml 2000 ml Balance 1116 ml 516 ml -263 ml 2512 ml Intake Oral 0 ml 1850 ml IV Total 1116 ml 1066 ml 127 ml 2662 ml Output Urine Total 550 ml 200 ml 1800 ml Drainage Total 190 ml 190 ml Estimated Blood Loss 10 ml # Voids 0 # Bowel Movements 0 0 0 Exam Gen: Lying comfortably at 30degree head tilt HEENT: PERRLA, Anicteric sclerae, moist conjunctivae, and no lid lag. Neck: supple, no JVD Cardio: Regular rate and rhythm with no murmurs, rubs, or gallops appreciated Pulm: Clear to auscultation B/L. Moderate cough only once during encounter. Abd: positive bowel tones. Soft, nontender, nondistended. Extremities: No clubbing, cyanosis, edema, or lymphadenopathy appreciated. Skin: Normal temperature, turgor, and texture. Chest tubes in place and dressing around tubes clean, dry and intact. Draining serosanguanous liqiud. Psyc: AoX3. Emotional IVs and Medications Medications Reviewed: Medications were reviewed in detail Lab and Diagnostics Result Diagram: 4/18/17 0615 4/18/17 0615 Microbiology Thoracentesis fluid: AFB pending. Gram stain negative for organisms. Culture - no growth to date (original thoracentesis grew Streptococcus intermedius) Blood: no growth at 2 days. fungal culture pending. Urine: streptococcus pneumoniae Ag negative Nasopharangeal: MRSA negative serology: Streptozyme 248.5, Cryptococcus Ag negative, fungal antibodies pending . X-Rays, CTs and MRIs X-RAY CHEST, TWO VIEWS ([id number]) IMPRESSION: 1. Large left pleural effusion. No prior studies are available to determine the acuity of this finding. 2. Right basilar atelectasis. Dictated by: Sharri Dumont M.D. on 05/31/2016 at 13:53 Approved by: Sharri Dumont M.D. on 05/31/2016 at 13:54 PROCEDURE: CT CHEST WITHOUT CONTRAST ([id number]) INDICATIONS: Pleural effusion. S/P thoracentesis 10:30. IMPRESSION: 1. Large loculated left-sided pleural effusion is suspicious for possible empyema. 2. Extensive pulmonary consolidation is most suggestive of atelectasis. Superimposed pneumonia cannot be entirely excluded. 3. Small pericardial effusion. Dictated by: Nazario Guardado M.D. on 06/02/2016 at 10:18 Additional Diagnostics 05/28/2016 thoracentesis labs Protein: 5.1 Glucose: 44 LDH: 533 Amylase: 513 White blood cells: 7072 Red blood cells: 11,020 Assessment & Plan Problem List 1. Large Left Empyema s/p left thoracoscopy with decortication and washout (>1200 mL of purulent fluid was aspirated). Lung expanded. 2. Hypoxia, Supplemental oxygen needs are trending down, now on 2L by NC 3. Leukocytosis likely secondary to surgical wash out PLAN - Incentive spirometry - Broad coverage Abx ceftriaxone and metronidazole - NC to maintain sat >92%. Thank you for this consultation. GI Prophylaxis: Not indicated VTE Prophylaxis: Sub-Q Heparin (Unfractionated) VTE Mechanical Devices: Intermittant Pneumatic CD Resuscitation Status: CPR: Attempt Resuscitation CarolineDarleen Jun 03, 2016 11:23 POSTOPERATIVE DIAGNOSIS(ES): Left empyema. PROCEDURE PERFORMED: Left thoracoscopy with decortication and washout. ASSISTANTS: Colton Link PA-C; River Moreno, MS-3. An assistant prosecuting attorney was necessary for dissection. HISTORY OF PRESENT ILLNESS: This is a 75-year-old woman who presented with a left-sided pleural effusion. She underwent a thoracentesis twice and Streptococcus intermedius grew out from the 1st culture over the course of several days. A CT scan was repeated and revealed loculated fluid consistent with empyema. FINDINGS: 1. Thick inflammatory rind on the chest wall, lung, and diaphragm. 2. Greater than 1200 mL of purulent fluid was aspirated. Cultures had been sent previously in the day after thoracentesis and therefore additional cultures were not sent. 3. At the completion of the decortication, the entire lung was able to expand easily. GI Prophylaxis: Not indicated VTE Prophylaxis: Sub-Q Heparin (Unfractionated) VTE Mechanical Devices: Intermittant Pneumatic CD Resuscitation Status: CPR: Attempt Resuscitation Darleen Velazquez DO Jun 03, 2016 11:23
--- NOTE | 2016-06-03 13:20 | NUR ---
Pain/Mobility Pt has denied any pain or nausea all shift. VSS, up to BSC with [address] dressing CDI. Pt A/O, occ confused but easily reoriented. Pt using call light approp for all needs. Cont to monitor.
[2016-06-03] MEDS: oxyCODONE-Acetamin 5-325 mg Tablet PO PRN (14:12)
[2016-06-03] MEDS: cefTRIAXone Inj 2,000 MG in Dextrose 5% Minibag Plus 50 ML IV SCH (15:02)
--- NOTE | 2016-06-03 17:12 | PCM.PNMED ---
Subjective Date of Service Jun 03, 2016 Subjective Patient was seen and examined today at bedside. The patient is currently lethargic and groggy secondary to anesthesia from yesterday's surgical procedure. The patient states that her shortness of breath has improved significantly. Patient denies any chest pain, nausea, vomiting, diarrhea. Overnight events: None Exam Vital Signs Vital Sign - Last Date Time Temp Pulse Resp B/P Pulse Ox O2 Delivery O2 Flow Rate FiO2 06/03/16 16:02 Supplement Oxygen Chest Tubes 06/03/16 15:43 37.0 95 16 95/54 96 3.00 Intake and Output 06/02/16 06/02/16 06/03/16 Cumulative From/Thru 15:00 23:00 07:00 05/31/16 13:21 - 06/03/16 06:27 Intake Total 1116 ml 1066 ml 127 ml 4612 ml Output Total 550 ml 390 ml 2000 ml Balance 1116 ml 516 ml -263 ml 2612 ml Intake Oral 0 ml 1850 ml IV Total 1116 ml 1066 ml 127 ml 2762 ml Output Urine Total 550 ml 200 ml 1800 ml Drainage Total 190 ml 190 ml Estimated Blood Loss 10 ml # Voids 0 # Bowel Movements 0 0 0 Exam Physical Exam: GEN: Patient was awake, alert, responding appropriately to questions HEENT: Pupils equal round and reactive to light, extraocular eye muscles intact , Neck soft supple, trachea midline, nomocephalic/atraumatic CV: +S1/S2, regular rate and rhythm, systolic murmur auscultated Respiratory: CTAB, no wheezes, rales, rhonchi, bilateral chest tubes in place GI: +bowel sounds x4, soft, compressible, nontender to palpation EXT: no clubbing, cyanosis, edema Neuro: Cranial nerves II-XII grossly intact Psych: mood and affect were appropriate IVs and Medications Medications Reviewed: Medications were reviewed in detail Lab and Diagnostics Result Diagram: 06/03/1661406/03/16614 Microbiology Thoracentesis fluid: AFB pending. Gram stain negative for organisms. Culture - no growth to date (original thoracentesis grew Streptococcus intermedius) Blood: no growth at 2 days. fungal culture pending. Urine: streptococcus pneumoniae Ag negative Nasopharangeal: MRSA negative serology: Streptozyme 248.5, Cryptococcus Ag negative, fungal antibodies pending . X-Rays, CTs and MRIs X-RAY CHEST, TWO VIEWS ([id number]) IMPRESSION: 1. Large left pleural effusion. No prior studies are available to determine the acuity of this finding. 2. Right basilar atelectasis. Dictated by: Sharri Dumont M.D. on 05/31/2016 at 13:53 Approved by: Sharri Dumont M.D. on 05/31/2016 at 13:54 PROCEDURE: CT CHEST WITHOUT CONTRAST ([id number]) INDICATIONS: Pleural effusion. S/P thoracentesis 10:30. IMPRESSION: 1. Large loculated left-sided pleural effusion is suspicious for possible empyema. 2. Extensive pulmonary consolidation is most suggestive of atelectasis. Superimposed pneumonia cannot be entirely excluded. 3. Small pericardial effusion. Dictated by: Nazario Guardado M.D. on 06/02/2016 at 10:18 Additional Diagnostics 05/28/2016 thoracentesis labs Protein: 5.1 Glucose: 44 LDH: 533 Amylase: 513 White blood cells: 7072 Red blood cells: 11,020 Assessment & Plan 75-year-old previously healthy female presents with shortness of breath secondary to rapid recurrent pleural effusion. Left sided pleural effusion secondary to empyema, present on admission, acute ( infectious versus malignant) -Gen. surgery following -Bilateral chest tubes in place continue to monitor I's and O's from chest tube -O2 monitoring overnight with supplemental oxygen as necessary - Continue Zosyn 3.375gm IV every 8hrs SIRS positive with mild leukocytosis, present on admission, acute -Leukocytosis resolved, procalcitonin trending down -Blood cultures negative 2 days -Fungal antibody results pending - Continue Zosyn 3.375gm IV every 8hrs -Infectious disease following, case discussed with Dr. Cox - Continue to monitor Acute hypoxic respiratory failure, present on admission - Secondary to pleural effusion - O2 monitoring and supplemental oxygen as necessary Elevated anion gap metabolic acidosis, present on admission, likely chronic - Anion gap trending down - Continue to monitor Hyponatremia and hypochloremia, present on admission, acute -Sodium and chloride are trending up -Patient is currently volume overloaded so we will hold off on IV fluids at this time -Encourage good oral intake -Continue to monitor Normocytic Anemia, present on admission, presumed chronic -Secondary to iron deficiency anemia - Start iron supplementation Thrombocytosis, present on admission, acute - Platelets are 614,000 and a notable stress phase reactant - Continue Monitor History of ADHD, present on admission, chronic - continue outpatient Adderall 10mg daily History of Anxiety and Depression, present on admission, chronic - Increase fluoxetine to 40 mg daily -Start Xanax 0.25 mg when necessary anxiety 3 times a day History of hypothyroidism, present on admission, chronic - TSH and free T4 within normal limits DVT prophylaxis Heparin 5000U SQ every 12 Bowel regimen available when necessary Antiemetics available when necessary Pain medication available when necessary Disposition: The patient tolerated her surgical procedure well yesterday. The patient seems to be responding to treatment. The patient states that her shortness of breath has improved. Infectious disease has also been consulted for further antibiotic management. We will continue to monitor patient. GI Prophylaxis: Not indicated VTE Prophylaxis: Sub-Q Heparin (Unfractionated) VTE Mechanical Devices: Intermittant Pneumatic CD Resuscitation Status: CPR: Attempt Resuscitation Mala Valdovinos DO Jun 03, 2016 17:12
--- NOTE | 2016-06-03 19:26 | PROG NOTE ---
[address] [address] PROGRESS NOTE PATIENT: MARLEEN CAMACHO : 1940 MR#: [id number] ADMIT: 05/31/2016 JOB ID: [id number] DATE: 06/03/2016 REASON FOR FOLLOWUP: Left empyema. INTERVAL HISTORY: Yesterday, the patient underwent a VATS procedure with clean out of the left-sided empyema and drainage of 1200 cc of purulent fluid. At the end of this procedure, the two chest tubes were left in place. Today, the patient reports she has almost no left pleuritic chest pain and feels much better than she did preoperatively. No fevers. No chills. No sore throat. No significant cough or shortness of breath. She is tolerating the two chest tubes extraordinarily well. No GI symptoms are noted. PHYSICAL EXAMINATION: Reveals an afebrile woman in no acute distress. Temp 37 degrees, pulse 95, respiratory rate 16, blood pressure 95/54, saturating well on 3 L. Oral cavity is unremarkable. Lungs quite clear though she does have two chest tubes on the left and there is a decreased excursion on the left side but surprisingly good considering the probable pain associated with these tubes. The abdomen is soft and nontender. No skin rash noted. LABORATORIES: Include white count which jumped to 20,000 today, though I think that is reaction to the surgery. Creatinine 0.54, alk phos 186. AST has dropped from 55-20. Procalcitonin was last measured a couple of days ago and was 0.5. Streptozyme positive, interestingly, at 248. Cultures of blood have been negative. MRSA screen negative and cultures from the empyema fluid done here are negative so far, but we do have the final report from [facility] about the empyema fluid that they obtained a week or so ago and that was strep intermedius as the identified organism which was very susceptible to penicillin, ceftriaxone, clindamycin and amoxicillin. IMPRESSION: Strep intermedius empyema, left chest, now status post video-assisted thoracoscopic surgery procedure and chest tube placement. The patient is doing extremely well, looks nontoxic, even as her white count has jumped, though this was probably due to surgery. RECOMMENDATIONS: 1. Will continue with an at least two week or so course of IV antibiotics before transition to prolonged course of oral antibiotics. Oral antibiotics here might reasonably include amoxicillin, Augmentin or clindamycin for the long haul. For now, will continue with IV ceftriaxone plus Flagyl. 2. Ceftriaxone plus Flagyl for the short term. 3. Once the patient's chest tubes are out, will transition perhaps to a simplified once a day regimen perhaps with ertapenem or continuing ceftriaxone and Flagyl for a bit. 4. After a couple weeks of IV therapy, if the patient is doing well, will transition her to oral therapy with close followup.
[2016-06-04] MEDS: Acetaminophen IV 1,000 MG in IV Premix 1 EACH IV SCH (02:31)
--- NOTE | 2016-06-04 04:33 | NUR ---
Pain/ activity Pt rated pain to chest tube sites 5/10 and took Oxycodone 5mg (this was switched from percocet as pt had scheduled Tylenol that exceeded 4000mg limit). Pt on 2L overnight, CPOx mid 90s, no complaints of sob. Two Chest tubes to wall suction,draining serosang fluid into atriums x2, chest tube dressing with old drainage is dry and intact. Pt has been up to [facility] with OPA, a little unsteady on feet. Continue close monitoring.
[2016-06-04] MEDS: ALPRAZolam 0.5 mg Tablet PO PRN ×2 (06:13→20:42)
[2016-06-04 06:17] VITALS: BP 108/52; PULSE 84; RESP 16; O2SAT 98
[2016-06-04 08:10] LABS: Mean Corpuscular Hemoglobin 27.2 pg (27.0-35.0); Mean Corpuscular Volume 83.2 fL (81-100)
--- NOTE | 2016-06-04 09:45 | PCM.PNSURG ---
Subjective Visit Information: Reason for Visit Left Pulmonary Effusion Surgery/Surgery Date Post-Op Day # Date of Admission: May 31, 2016 at 19:14 Hospital Day # Subjective: Stable overnight. CXR with well expanded L lung. chest tubes are in adequate position. Chest tube #1 is apical and posterior. 310mL out of serous fluid. Trace air leak. Chest tube #2 is basilar. 94mL out of serous fluid on my read of the pleuravac. No air leak. Objective Vital Sign- Last 8 Hours Date Time Temp Pulse Resp B/P Pulse Ox O2 Delivery O2 Flow Rate FiO2 06/04/16 06:17 36.8 84 16 108/52 98 Nasal Cannula 3.00 Intake and Output- Last 8 Hour 06/04/16 Cumulative From/Thru 07:00 05/31/16 13:21 - 06/04/16 06:41 Intake Total 500 ml 6541 ml Output Total 2000 ml 5335 ml Balance -1500 ml 1206 ml Intake Oral 500 ml 3386 ml IV Total 3155 ml Output Urine Total 2000 ml 4850 ml Drainage Total 475 ml Estimated Blood Loss 10 ml # Voids 0 # Bowel Movements 0 0 General: Alert, Oriented X3, Cooperative, No Acute Distress Chest: Chest tubes are not kinked, small air leak on #1 (one bubble with a cough, no bubbles on deep breathing). Serosanguinous fluid. Breathing easily on NC Result Diagram: 06/04/16 0753 06/04/16 0753 Assessment & Plan Impression POD1-2 VATS L empyema Problems: Plan Water seal chest tube #2 (basilar). Continue suction to chest tube #1. CXR in the am. VTE Prophylaxis: Sub-Q Heparin (Unfractionated) Resuscitation Status: CPR: Attempt Resuscitation Anjali Cabrera MD Jun 04, 2016 09:45
--- NOTE | 2016-06-04 10:07 | DRSVH ---
PROCEDURE: X-RAY CHEST ONE VIEW, PORTABLE ([id number]) INDICATIONS: CHEST TUBES TECHNIQUE: One view of the chest was acquired. COMPARISON: [facility], CR, XR CHEST 1VW (PORTABLE), 06/03/2016, 7:08. [facility], CR, XR CHEST 1VW (PORTABLE), 06/03/2016, 0:46. FINDINGS: Surgical changes and devices: 2 left pleural drains in stable normal position.. Lungs and pleura: No pleural effusions or pneumothorax. Lungs are abnormal with bibasilar alveolar consolidation greater on the left than the right but stable over time.. Mediastinum: Mediastinal contours appear normal. Heart size is normal. Bones and chest wall: No suspicious bony lesions. Overlying soft tissues appear unremarkable. IMPRESSION: No pneumothorax on the left, left lower lobe pneumonia, minimal pneumonitis right lung ba se, superimposed chronic mild interstitial prominence. Dictated by: Jericho Pierson M.D. on 06/04/2016 at 10:05 Approved by: Jericho Pierson M.D. on 06/04/2016 at 10:06
[2016-06-04] MEDS: Amphetamines (Mixed) 10 mg Tablet PO SCH (10:11)
--- NOTE | 2016-06-04 13:44 | PATH ---
SURGICAL PATHOLOGY Attending Physician:See Additional MD CASE STATUS: Signed Out PATIENT NAME: MARLEEN CAMACHO PID: [id number] : 1940 DATE COLLECTED:06/02/2016 00:00 SPECIMEN: Pleural Fluid CLINICAL HISTORY: Pleural Fluid ICD-10 code not given FINAL DIAGNOSIS: PLEURAL FLUID (SIDE NOT SPECIFIED): NEGATIVE FOR MALIGNANT CELLS. NEUTROPHILS, LYMPHOCYTES, AND RARE MESOTHELIAL CELLS ARE PRESENT. ICD10 CODE J90 GROSS DESCRIPTION: Received fresh on 06/03/2016 is approximately 7 cc of cloudy yellow fluid. Prepared are one cell block, one ThinPrep and one Cytospin slides. Vo ICD-9 CODES: CPT CODES: 1: 36644, 32806, 74083 Electronically Signed Out Alexandre Montez MD [facility] Pathology [facility] [address], [place] [address] Technical component performed at [facility], [facility] [address], [place], [address]
[2016-06-04 14:17] VITALS: BP 101/61; PULSE 94; RESP 16; O2SAT 98
--- NOTE | 2016-06-04 14:59 | NUR ---
resp left chest tubes x 2, #1 still on sx, #2 changed to water seal, drainage is sero-sang, sats 98% on 2L, HR 90s, pt fairly comfortable, just "tired of being in hospital" Lung sounds slightly coarse and diminished
--- NOTE | 2016-06-04 15:39 | NUR ---
Social Work - Continued Discharge Planning: Data: EMR reviewed. Pt is on day 4 of hospitalization for left pulmonary effusion per H&P. Pt is not medically stable for several days. SW followed up with pt at bedside to further discuss discharge planning. Pt plans to return home with son. SW discussed HH and pt is unsure. 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 SW to follow-up once ABX have been determined. Pt states that she was feeling depressed and has a history of depression. SW asked pt is she was planning on harming herself or if she had any suicidal thoughts. Pt confirmed she is not suicidal, not planning on harming her self and "would never do something like that." Pt requested resources for mental health providers in the area that could help with ongoing mental health concerns and depression. SW confirmed we would provide resources for mental health providers in the area. SW updated RN. SW provided phone number and plan on white board in room. SW will continue to follow. Assessment:Pt who is independent at baseline. Plan:Pt to discharge home when medically stable via POV. SW to follow for ABX and HH needs.
[2016-06-04] MEDS: cefTRIAXone Inj 2,000 MG in Dextrose 5% Minibag Plus 50 ML IV SCH (15:45)
--- NOTE | 2016-06-04 16:09 | PCM.PNMED ---
Subjective Date of Service Jun 04, 2016 Subjective Patient was seen and examined at bedside today. Patient denies any chest pain, shortness of breath, nausea, vomiting, diarrhea. Patient states that her shortness of breath has significantly improved since that placement of the chest tubes. Patient still has some anxiety but seems to be much better controlled. Overnight events: None Exam Vital Signs Vital Sign - Last Date Time Temp Pulse Resp B/P Pulse Ox O2 Delivery O2 Flow Rate FiO2 06/04/16 14:17 36.7 94 16 101/61 98 Nasal Cannula 3.00 Intake and Output 06/03/16 06/03/16 06/04/16 Cumulative From/Thru 15:00 23:00 07:00 05/31/16 13:21 - 06/04/16 06:41 Intake Total 1429 ml 500 ml 6541 ml Output Total 1335 ml 2000 ml 5335 ml Balance 94 ml -1500 ml 1206 ml Intake Oral 1036 ml 500 ml 3386 ml IV Total 393 ml 3155 ml Output Urine Total 1050 ml 2000 ml 4850 ml Drainage Total 285 ml 475 ml Estimated Blood Loss 10 ml # Voids 0 # Bowel Movements 0 0 0 Exam Physical Exam: GEN: Patient was awake, alert, responding appropriately to questions HEENT: Pupils equal round and reactive to light, extraocular eye muscles intact , Neck soft supple, trachea midline, nomocephalic/atraumatic CV: +S1/S2, regular rate and rhythm, no murmurs auscultated Respiratory: Decreased breath sounds bilaterally secondary to poor inspiratory effort but clear, no wheezes, rales, rhonchi, [address] on the left both currently draining GI: +bowel sounds x4, soft, compressible, nontender to palpation EXT: no clubbing, cyanosis, edema Neuro: Cranial nerves II-XII grossly intact Psych: mood and affect were appropriate IVs and Medications Medications Reviewed: Medications were reviewed in detail Lab and Diagnostics Result Diagram: 06/04/16 0753 06/04/16 0753 Microbiology Thoracentesis fluid: AFB pending. Gram stain negative for organisms. Culture - no growth to date (original thoracentesis grew Streptococcus intermedius) Blood: no growth at 2 days. fungal culture pending. Urine: streptococcus pneumoniae Ag negative Nasopharangeal: MRSA negative serology: Streptozyme 248.5, Cryptococcus Ag negative, fungal antibodies pending . X-Rays, CTs and MRIs X-RAY CHEST, TWO VIEWS ([id number]) IMPRESSION: 1. Large left pleural effusion. No prior studies are available to determine the acuity of this finding. 2. Right basilar atelectasis. Dictated by: Sharri Dumont M.D. on 05/31/2016 at 13:53 Approved by: Sharri Dumont M.D. on 05/31/2016 at 13:54 PROCEDURE: CT CHEST WITHOUT CONTRAST ([id number]) INDICATIONS: Pleural effusion. S/P thoracentesis 10:30. IMPRESSION: 1. Large loculated left-sided pleural effusion is suspicious for possible empyema. 2. Extensive pulmonary consolidation is most suggestive of atelectasis. Superimposed pneumonia cannot be entirely excluded. 3. Small pericardial effusion. Dictated by: Nazario Guardado M.D. on 06/02/2016 at 10:18 Additional Diagnostics 05/28/2016 thoracentesis labs Protein: 5.1 Glucose: 44 LDH: 533 Amylase: 513 White blood cells: 7072 Red blood cells: 11,020 Assessment & Plan 75-year-old previously healthy female presents with shortness of breath secondary to rapid recurrent pleural effusion. Left sided pleural effusion secondary to empyema, present on admission, acute ( infectious versus malignant) -Gen. surgery following -Bilateral chest tubes in place continue to monitor I's and O's from chest tube -O2 monitoring overnight with supplemental oxygen as necessary -Discontinue Zosyn 3.375gm IV every 8hrs -Start ceftriaxone and Flagyl per recommendations by infectious disease SIRS positive with mild leukocytosis, present on admission, acute -Leukocytosis resolved, procalcitonin trending down -Blood cultures negative 2 days -Fungal antibody results pending -Pleuritic fluid results showing alphahemolytic colonies will ID bacteria, acid fast negative - Continue Zosyn 3.375gm IV every 8hrs -Infectious disease following, case discussed with Dr. Cox - Continue to monitor Acute hypoxic respiratory failure, present on admission - Secondary to pleural effusion - O2 monitoring and supplemental oxygen as necessary Elevated anion gap metabolic acidosis, present on admission, likely chronic - Anion gap trending down - Continue to monitor Hyponatremia and hypochloremia, present on admission, acute -Sodium and chloride are trending up -Patient is currently volume overloaded so we will hold off on IV fluids at this time -Encourage good oral intake -Continue to monitor Normocytic Anemia, present on admission, presumed chronic -Secondary to iron deficiency anemia - Start iron supplementation Thrombocytosis, present on admission, acute - Platelets are 614,000 and a notable stress phase reactant - Continue Monitor History of ADHD, present on admission, chronic - continue outpatient Adderall 10mg daily History of Anxiety and Depression, present on admission, chronic - Increase fluoxetine to 40 mg daily -Start Xanax 0.25 mg when necessary anxiety 3 times a day History of hypothyroidism, present on admission, chronic - TSH and free T4 within normal limits DVT prophylaxis Heparin 5000U SQ every 12 Bowel regimen available when necessary Antiemetics available when necessary Pain medication available when necessary Disposition: The patient is currently doing well and progressing. The case is currently being followed by infectious disease and general surgery. Infectious disease has changed the patient's regimen to use ceftriaxone and Flagyl and suggested extended course of antibiotics. GI Prophylaxis: Not indicated VTE Prophylaxis: Sub-Q Heparin (Unfractionated) VTE Mechanical Devices: Intermittant Pneumatic CD Resuscitation Status: CPR: Attempt Resuscitation Mala Valdovinos DO Jun 04, 2016 16:09
--- NOTE | 2016-06-04 16:18 | PCM.PNMED ---
Subjective Date of Service Jun 04, 2016 Subjective Patient is a 75yof who initially presented to [facility] where thoracentesis revealed left-sided pleural effusion demonstrating exudative fluid (05/28). She subsequently worsened with similar symptoms and transferred to [facility] ER (05/31) for further evaluation. Patient underwent left thoracoscopy with decortication and washout two evenings ago. I saw the patient while her son was at her bedside. Today, the patient states that she is having a lot of pain in her left side but she denies the pressure that she has previously felt. She wanted to know what she can do to prevent this from happening again. We discussed use of incentive spirometry, breathing deeply several times per day and encouraged coughing and not suppressing her cough. Other than her left chest soreness, she denies pain. Also denies nausea, vomiting, shortness of breath, calf pain, abdominal pain and dizziness. Exam Vital Signs Vital Sign - Last Date Time Temp Pulse Resp B/P Pulse Ox O2 Delivery O2 Flow Rate FiO2 06/04/16 14:17 36.7 94 16 101/61 98 Nasal Cannula 3.00 Intake and Output 06/03/16 06/03/16 06/04/16 Cumulative From/Thru 15:00 23:00 07:00 05/31/16 13:21 - 06/04/16 06:41 Intake Total 1429 ml 500 ml 6541 ml Output Total 1335 ml 2000 ml 5335 ml Balance 94 ml -1500 ml 1206 ml Intake Oral 1036 ml 500 ml 3386 ml IV Total 393 ml 3155 ml Output Urine Total 1050 ml 2000 ml 4850 ml Drainage Total 285 ml 475 ml Estimated Blood Loss 10 ml # Voids 0 # Bowel Movements 0 0 0 Exam Gen: Lying comfortably in bed HEENT: PERRLA, Anicteric sclerae, moist conjunctivae Neck: supple, no JVD Cardio: Regular rate and rhythm with no murmurs, rubs, or gallops appreciated Pulm: Clear to auscultation B/L. No coughing. Abd: positive bowel tones. Soft, nontender, nondistended. Extremities: No clubbing, cyanosis, edema, or lymphadenopathy appreciated. Skin: Chest tubes in place and dressing around tubes clean, dry and intact. Draining serosanguanous liquid. Psyc: AoX3. Short-term memory loss obvious during our discussion IVs and Medications Medications Reviewed: Medications were reviewed in detail Lab and Diagnostics Result Diagram: 06/04/16 0753 06/04/16 0753 Microbiology Thoracentesis fluid: AFB pending. Gram stain negative for organisms. Culture - no growth to date (original thoracentesis grew Streptococcus intermedius) Blood: no growth at 2 days. fungal culture pending. Urine: streptococcus pneumoniae Ag negative Nasopharangeal: MRSA negative serology: Streptozyme 248.5, Cryptococcus Ag negative, fungal antibodies pending . X-Rays, CTs and MRIs X-RAY CHEST, TWO VIEWS ([id number]) IMPRESSION: 1. Large left pleural effusion. No prior studies are available to determine the acuity of this finding. 2. Right basilar atelectasis. Dictated by: Sharri Dumont M.D. on 05/31/2016 at 13:53 Approved by: Sharri Dumont M.D. on 05/31/2016 at 13:54 PROCEDURE: CT CHEST WITHOUT CONTRAST ([id number]) INDICATIONS: Pleural effusion. S/P thoracentesis 10:30. IMPRESSION: 1. Large loculated left-sided pleural effusion is suspicious for possible empyema. 2. Extensive pulmonary consolidation is most suggestive of atelectasis. Superimposed pneumonia cannot be entirely excluded. 3. Small pericardial effusion. Dictated by: Nazario Guardado M.D. on 06/02/2016 at 10:18 Date of Service: 06/04/16 X-RAY CHEST ONE VIEW, PORTABLE IMPRESSION: No pneumothorax on the left, left lower lobe pneumonia, minimal pneumonitis right lung base, superimposed chronic mild interstitial prominence. Dictated by: Jericho Pierson M.D. on 06/04/2016 at 10:05 . Additional Diagnostics 05/28/2016 thoracentesis labs Protein: 5.1 Glucose: 44 LDH: 533 Amylase: 513 White blood cells: 7072 Red blood cells: 11,020 PATHOLOGY REPORT DATE COLLECTED:06/02/2016 00:00 Pleural Fluid FINAL DIAGNOSIS: PLEURAL FLUID (SIDE NOT SPECIFIED): NEGATIVE FOR MALIGNANT CELLS. NEUTROPHILS, LYMPHOCYTES, AND RARE MESOTHELIAL CELLS ARE PRESENT. . Assessment & Plan Patient is a 75yof who initially presented to [facility] where thoracentesis revealed left-sided pleural effusion demonstrating exudative fluid (05/28). She subsequently worsened with similar symptoms and transferred to [facility] ER (05/31) for further evaluation. 1. Large Left Empyema s/p left thoracoscopy with decortication and washout (>1200 mL of purulent fluid was aspirated). Lung expanded. Chest tubes in place and draining serosanguinous fluid 2. Hypoxia, Supplemental oxygen, saturating well on 3L by NC 3. Leukocytosis improved today. Likely secondary to surgery PLAN - Continue incentive spirometry, encourage patient to breathe deeply several times per day and not suppress her cough - antibiotics per infectious disease - NC to maintain sat >92%. Thank you for this consultation. . GI Prophylaxis: Not indicated VTE Prophylaxis: Sub-Q Heparin (Unfractionated) VTE Mechanical Devices: Intermittant Pneumatic CD Resuscitation Status: CPR: Attempt Resuscitation Darleen Velazquez DO Jun 04, 2016 16:18 History of Anxiety and Depression, present on admission, chronic - Increase fluoxetine to 40 mg daily -Start Xanax 0.25 mg when necessary anxiety 3 times a day History of hypothyroidism, present on admission, chronic - TSH and free T4 within normal limits DVT prophylaxis Heparin 5000U SQ every 12 Bowel regimen available when necessary Antiemetics available when necessary Pain medication available when necessary Disposition: The patient is currently doing well and progressing. The case is currently being followed by infectious disease and general surgery. Infectious disease has changed the patient's regimen to use ceftriaxone and Flagyl and suggested extended course of antibiotics. GI Prophylaxis: Not indicated VTE Prophylaxis: Sub-Q Heparin (Unfractionated) VTE Mechanical Devices: Intermittant Pneumatic CD Resuscitation Status: CPR: Attempt Resuscitation Darleen Velazquez DO Jun 04, 2016 16:18
[2016-06-04 20:37] VITALS: BP 114/66; PULSE 104; RESP 16; O2SAT 98
[2016-06-05 00:24] VITALS: BP 99/56; PULSE 94; RESP 16; O2SAT 99
--- NOTE | 2016-06-05 04:31 | NUR ---
Respiratory / activity No c/o SOB, chest tube #1 to suction, #2 to water seal. Pt demonstrated use of IS, needs encouragement to use more frequently. Demonstrates strong cough. Pain adequately controlled with PO Tylenol, declines offer of oxycodone tonight. Moderate anxiety relieved with Xanax at HS, pt reports resting pretty well. Bed alarm on for safety, hourly rounding ongoing.
[2016-06-05 05:06] VITALS: BP 99/61; PULSE 86; RESP 16; O2SAT 98
[2016-06-05 06:38] LABS: Mean Corpuscular Hemoglobin 26.8 pg (27.0-35.0); Mean Corpuscular Volume 83.7 fL (81-100)
[2016-06-05] MEDS: Amphetamines (Mixed) 10 mg Tablet PO SCH (08:32)
[2016-06-05] MEDS: Polyethylene Glycol (PEG) 17 Gm Powder PO PRN (09:26)
--- NOTE | 2016-06-05 10:01 | DRSVH ---
PROCEDURE: X-RAY CHEST ONE VIEW, PORTABLE ([id number]) INDICATIONS: empyema TECHNIQUE: One view of the chest was acquired. COMPARISON: [facility], CR, XR CHEST 1VW (PORTABLE), 06/03/2016, 0:46. [facility], CR, XR CHEST 1VW (PORTABLE), 06/01/2016, 8:11. [facility], CR, XR CHEST 1VW (CED BLE), 06/04/2016, 5:41. FINDINGS: Surgical changes and devices: Stable positioning of left pleural drains. Lungs and pleura: Small basilar left pneumothorax is present. Bibasilar airspace opacities present, left side greater than right not significantly changed from prior examination. Mediastinum: Mediastinal contours appear normal. Heart size is normal. Bones and chest wall: No suspicious bony lesions. Overlying soft tissues appear unremarkable. IMPRESSION: 1. Stable positioning of left pleural drains and small left basilar pneumothorax is present. 2. Bibasilar airspace opacities redemonstrated, left side greater than right not significantly change d. Dictated by: Pola Mcduffie [facility] Interpreted: Braxton Jaeger MD on 06/05/2016 at 9:56 Transcribed by: PETEY on 06/05/2016 at 10:00 Approved by: Braxton Jaeger M.D. on 06/05/2016 at 10:29
--- NOTE | 2016-06-05 10:33 | PCM.PROC ---
Procedure Note Date of Service: Jun 05, 2016 Pre Procedure Diagnosis: Left empyema s/p VATS and chest tube placement x 2 Post Procedure Diagnosis: Same Procedure: Chest tube removal, #2 basilar Provider and Power And Recovery Supervisor: Seymour Vernon PA-C Indication for Procedure: minimal basilar chest tube output with lung expansion and no air leak Findings: 50 mL serosanguinous chest tube output overnight Patient breathing comfortably before and after chest tube removal O2 sat 99% on NC Lungs clear to auscultation Procedural Analgesia: Oxycodone PO Procedure Details: Patient place supine and #2 chest tube removed when patient in full inspiration. Tube removed and purse string suture used to close wound. Vaseline impregnated gauze and sterile gauze placed over tube site with tape to adhere to skin. Patient tolerated procedure well. Chest xray ordered to evaluate for evidence of PTX. Specimen: None Post Procedure Plan: Chest x ray to evaluate for possible pneumothorax. Anthony Vernon PA-C Jun 05, 2016 10:33
--- NOTE | 2016-06-05 11:46 | PROG NOTE ---
[address] [address] PROGRESS NOTE PATIENT: MARLEEN CAMACHO : 1940 MR#: [id number] ADMIT: 05/31/2016 JOB ID: [id number] INFECTIOUS DISEASE FOLLOWUP: DATE: 06/05/2016 REASON FOR FOLLOWUP: Empyema due to Strep intermedius. INTERVAL HISTORY: Overnight, the patient had one of her left chest tubes removed; she still has one in place. She reports this was relatively painless and she denies fevers, chills, or sweats. She notes she still has a bit of a dry cough but it may be improving. She is not especially short of breath and feels very blessed that she has gotten through this as well as she has. PHYSICAL EXAMINATION: Reveals an afebrile woman. Temp 36.7, pulse 88, respiratory rate 16, blood pressure 99/61. She is in no acute distress. Mental status is clear. Oral cavity: No thrush. Lungs with decreased breath sounds at the left base. Chest tube is present. No new cardiac murmurs. Abdomen benign. LABORATORY DATA: Labs include white count 14,000, platelets very high 738, creatinine 0.37. LFTs normal. Serologic studies: Positive Streptozyme 248, crypto antigen negative. Cultures from here also growing what appears to be a Strep viridans from the pleural space. Recall that they also grew the same organism over at [facility]. IMPRESSION: This patient has a very classic Streptococcus intermedius left-sided empyema. There is also a chance that anaerobes are present as they are very difficult to culture and predominant in about 25% of cases of empyema. At this point, she is looking good and I think we can continue with IV ceftriaxone and Flagyl for a total of a couple weeks or so before we make a transition to prolonged oral therapy. The duration of antibiotics needed for empyema is individualized decision and will need to closely watch her progress before making a final plan.
[2016-06-05 12:56] VITALS: BP 113/62; PULSE 110; RESP 16; O2SAT 98
--- NOTE | 2016-06-05 13:03 | PCM.PNSURG ---
Subjective Visit Information: Reason for Visit Left Pulmonary Effusion Surgery/Surgery Date Post-Op Day # Date of Admission: May 31, 2016 at 19:14 Hospital Day # Subjective: Stable overnight. CXR shows well exopanded left lung Apical chest tube had 270mL out output and trace air leak Basilar chest tube had 40mL output and no air leak Objective Vital Sign- Last 8 Hours Date Time Temp Pulse Resp B/P Pulse Ox O2 Delivery O2 Flow Rate FiO2 06/05/16 12:56 36.3 110 16 113/62 98 Nasal Cannula 3.00 06/05/16 08:30 Supplement Oxygen Chest Tubes 06/05/16 05:06 36.7 86 16 99/61 98 Nasal Cannula 3.00 Intake and Output- Last 8 Hour 06/05/16 Cumulative From/Thru 07:00 05/31/16 13:21 - 06/05/16 06:26 Intake Total 540 ml 8094 ml Output Total 1175 ml 7748 ml Balance -635 ml 346 ml Intake Oral 250 ml 4436 ml IV Total 290 ml 3658 ml Output Urine Total 1000 ml 6950 ml Drainage Total 175 ml 788 ml Estimated Blood Loss 10 ml # Voids 1 # Bowel Movements 0 0 General: Alert, Oriented X3, Cooperative, No Acute Distress Lungs: Other (both chest tubes have serosanguinous fluid, air leak in apical tube (trace), are straight without kinks and she is breathing easily on NC) Result Diagram: 06/05/16 0603 06/05/16 0603 Assessment & Plan Impression POD3 VATS for empyema on L Problems: Plan Continue apical chest tube to suction Discontinue basilar chest tube today CXR in am General diet Antibiotics VTE Prophylaxis: Sub-Q Heparin (Unfractionated) Resuscitation Status: CPR: Attempt Resuscitation Anjali Cabrera MD Jun 05, 2016 13:03
[2016-06-05] MEDS: ALPRAZolam 0.5 mg Tablet PO PRN (13:44)
--- NOTE | 2016-06-05 15:05 | DRSVH ---
PROCEDURE: X-RAY CHEST ONE VIEW, PORTABLE ([id number]) INDICATIONS: s/p chest tube removal TECHNIQUE: One view of the chest was acquired. COMPARISON: [facility], CR, XR CHEST 1VW (PORTABLE), 06/05/2016, 5:34. FINDINGS: Surgical changes and devices: The more superior thoracostomy tube has been removed. A thoracostomy tu be remains. Lungs and pleura: Persistent left basilar opacity and small left effusion. No pneumothorax. Mediastinum: Mediastinal contours appear normal. Heart size is normal. Bones and chest wall: No suspicious bony lesions. Overlying soft tissues appear unremarkable. IMPRESSION: Removal of the more superior thoracostomy tube. Dictated by: Braxton Jaeger M.D. on 06/05/2016 at 14:59 Approved by: Braxton Jaeger M.D. on 06/05/2016 at 15:03
[2016-06-05] MEDS: cefTRIAXone Inj 2,000 MG in Dextrose 5% Minibag Plus 50 ML IV SCH (15:36)
--- NOTE | 2016-06-05 15:36 | NUR ---
NUTRITION FOLLOW-UP: ASSESS: 75 YO F admitted with L pleural effusion of unknown etiology s/p thoracentesis with chest tubes x 2. One chest tube will likely be removed today. Pt intake is improving slightly. Pt reports 30lb weight loss, trouble swallowing. PMHX: hypothyroid, leukopenia DIET: General. PO intake 0-50%. LABS: Reviewed. Cr .37, Ca 8.4, Alb 2.2. MEDS: Reviewed GI: No BM recorded WEIGHT: 61.36 kg BMI: 23.0; 30lb weight loss; 12% weight loss x 1 yr EST.NEEDS (wt gain): 8488-7969 kcals (25-35 kcal/kg BW) 60-90 g protein (1.0-1.5 g/kg BW) NUTRITION DIAGNOSIS: (1) Inadequate oral intake related to decreased swallowing ability/depressed appetite per report as evidenced by po intake 0-50% x 5 days and reported weight loss--PERSISTS. INTERVENTION: (1) Will add ensure to all trays. (2) Consider ST eval as pt reports swallowing difficulties. MONITOR/EVALUATE: PO intake, labs, possible ST eval, weights, nutritional status. Follow per moderate nutritional risk guidelines.
--- NOTE | 2016-06-05 16:40 | NUR ---
resp PA removed Chest tube # 2 this am, pt tolerated well, satting 96% on RA now, occas prod cough, scant amt phlegm, creamy with red streaks. No resp distress. VSS
[2016-06-05] MEDS ORDERED: 0.9% Sodium Chloride 500 ML IV ONE (17:30)
[2016-06-05 20:29] VITALS: BP 115/57; PULSE 94; RESP 20; O2SAT 96
--- NOTE | 2016-06-05 21:30 | NUR ---
Constipation/pain Pt c/o constipation and Lt chest pain r/t tube. Pt given senna x 2 tabs and Tylenol 975mg. Tylenol effective per pt and fluids encouraged. Care ongoing.
--- NOTE | 2016-06-05 22:27 | PCM.PNMED ---
Subjective Date of Service Jun 05, 2016 Subjective Overnight, the patient had one of her left chest tubes removed; she still has one in place. She reports this was relatively painless and she denies fevers, chills, or sweats. CXR shows well exopanded left lung Apical chest tube had 270mL out output and trace air leak Basilar chest tube had 40mL output and no air leak She was on nystatin for 2 weeks for thrush thinks now better. Constipated but Will wait till tomorrow for dulcolax suplment. No other concerns x Exam Vital Signs Vital Sign - Last Date Time Temp Pulse Resp B/P Pulse Ox O2 Delivery O2 Flow Rate FiO2 06/05/16 12:56 36.3 110 16 113/62 98 Nasal Cannula 3.00 Intake and Output 06/04/16 06/04/16 06/05/16 Cumulative From/Thru 15:00 23:00 07:00 05/31/16 13:21 - 06/05/16 06:26 Intake Total 213 ml 800 ml 540 ml 8094 ml Output Total 68 ml 1170 ml 1175 ml 7748 ml Balance 145 ml -370 ml -635 ml 346 ml Intake Oral 800 ml 250 ml 4436 ml IV Total 213 ml 290 ml 3658 ml Output Urine Total 1100 ml 1000 ml 6950 ml Drainage Total 68 ml 70 ml 175 ml 788 ml Estimated Blood Loss 10 ml # Voids 1 1 # Bowel Movements 0 0 IVs and Medications IV Fluids Started her on IV fluids small bolus 500 mL due to concern for tachycardia secondary to dehydration Medications Reviewed: Medications were reviewed in detail Lab and Diagnostics Result Diagram: 06/05/16 0603 06/05/16 0603 Microbiology Thoracentesis fluid: AFB pending. Gram stain negative for organisms. Culture - no growth to date (original thoracentesis grew Streptococcus intermedius) Blood: no growth at 2 days. fungal culture pending. Urine: streptococcus pneumoniae Ag negative Nasopharangeal: MRSA negative serology: Streptozyme 248.5, Cryptococcus Ag negative, fungal antibodies pending . X-Rays, CTs and MRIs X-RAY CHEST, TWO VIEWS ([id number]) IMPRESSION: 1. Large left pleural effusion. No prior studies are available to determine the acuity of this finding. 2. Right basilar atelectasis. Dictated by: Sharri Dumont M.D. on 05/31/2016 at 13:53 Approved by: Sharri Dumont M.D. on 05/31/2016 at 13:54 PROCEDURE: CT CHEST WITHOUT CONTRAST ([id number]) INDICATIONS: Pleural effusion. S/P thoracentesis 10:30. IMPRESSION: 1. Large loculated left-sided pleural effusion is suspicious for possible empyema. 2. Extensive pulmonary consolidation is most suggestive of atelectasis. Superimposed pneumonia cannot be entirely excluded. 3. Small pericardial effusion. Dictated by: Nazario Guardado M.D. on 06/02/2016 at 10:18 Date of Service: 06/04/16 X-RAY CHEST ONE VIEW, PORTABLE IMPRESSION: No pneumothorax on the left, left lower lobe pneumonia, minimal pneumonitis right lung base, superimposed chronic mild interstitial prominence. Dictated by: Jericho Pierson M.D. on 06/04/2016 at 10:05 . Additional Diagnostics 05/28/2016 thoracentesis labs Protein: 5.1 Glucose: 44 LDH: 533 Amylase: 513 White blood cells: 7072 Red blood cells: 11,020 PATHOLOGY REPORT DATE COLLECTED:06/02/2016 00:00 Pleural Fluid FINAL DIAGNOSIS: PLEURAL FLUID (SIDE NOT SPECIFIED): NEGATIVE FOR MALIGNANT CELLS. NEUTROPHILS, LYMPHOCYTES, AND RARE MESOTHELIAL CELLS ARE PRESENT. . Assessment & Plan Patient is a 75yof who initially presented to [facility] where thoracentesis revealed left-sided pleural effusion demonstrating exudative fluid (05/28). She subsequently worsened with similar symptoms and transferred to [facility] ER (05/31) for further evaluation. 1. Acute exudative pleural effusion secondary to strep intermedius empyema : -- Large Left Empyema s/p left thoracoscopy with decortication and washout (>1200 mL of purulent fluid was aspirated). Lung expanded. Chest tubes in place and draining serosanguinous fluid, will await cultures -- Continue ceftriaxone and Flagyl per ID 2. Hypoxia, present on admission Supplemental oxygen, saturating well on 3L by NC: Resolved after the procedure no longer on oxygen 3. Leukocytosis improved today. Still mildly elevated Likely secondary to surgery. Continue to monitor with daily labs 4. Hyponatremia, present on admission: Resolved #5 Iron deficiency due to chronic hemorrhoids, present on admission: H&H stable at 9.9 #6 reactive thrombocytosis, present on admission continue to monitor with daily labs #7 acute tachycardia: Small blood bolus challenge of 500 mL given as this is likely due to her chest tube suction and fluid losses PLAN - Continue incentive spirometry, encourage patient to breathe deeply several times per day and not suppress her cough Chronic attention deficit the large or continue Adderall medication Chronic anxiety: Continue home medications Xanax Chronic depression: Continue medication Prozac DVT prophylaxis: Holding up chemical prophylaxis due to bleeding risk continue SCDs . Pain Evaluation: Adequate Pain Control GI Prophylaxis: Not indicated VTE Prophylaxis: Sub-Q Heparin (Unfractionated) VTE Mechanical Devices: Intermittant Pneumatic CD Resuscitation Status: CPR: Attempt Resuscitation Emily Lombardi DO Jun 05, 2016 17:00
[2016-06-06 05:45] VITALS: BP 126/64; PULSE 89; RESP 20; O2SAT 96
[2016-06-06 07:02] LABS: Mean Corpuscular Hemoglobin 27.3 pg (27.0-35.0); Mean Corpuscular Volume 84.2 fL (81-100)
[2016-06-06] MEDS: Amphetamines (Mixed) 10 mg Tablet PO SCH (08:22)
--- NOTE | 2016-06-06 09:30 | DRSVH ---
PROCEDURE: X-RAY CHEST ONE VIEW, PORTABLE ([id number]) INDICATIONS: empyema TECHNIQUE: One view of the chest was acquired. COMPARISON: [facility], CR, XR CHEST 1VW (PORTABLE), 06/05/2016, 5:34. [facility], CR, XR CHEST 1VW (PORTABLE), 06/04/2016, 5:41. [facility], CR, XR CHEST 1VW (CED BLE), 06/03/2016, 7:08. [facility], CR, XR CHEST 1VW (PORTABLE), 06/03/2016, 0:46. [facility], CR, XR CHEST 1VW (PORTABLE), 06/05/2016, 14:30. FINDINGS: Surgical changes and devices: Stable positioning of basilar left pleural drain. Lungs and pleura: Small loculated left basilar pneumothorax is now evident and persistent left basila r opacity. Right lung is clear. Mediastinum: Mediastinal contours appear normal. Heart size is normal. Bones and chest wall: No suspicious bony lesions. Overlying soft tissues appear unremarkable. IMPRESSION: 1. Small loculated left basal pleural effusion and airspace opacity consistent with atelectasis versu s pneumonia. Left basilar pleural drain is unchanged in position. Dictated by: Pola Mcduffie [facility] Interpreted: Florence Osborn MD on 06/06/2016 at 9:28 Transcribed by: WILLI on 06/06/2016 at 9:29 Approved by: Florence Osborn MD, PhD on 06/06/2016 at 16:45
--- NOTE | 2016-06-06 10:13 | PCM.PNSURG ---
Subjective Visit Information: Reason for Visit Left Pulmonary Effusion Surgery/Surgery Date Post-Op Day # Date of Admission: May 31, 2016 at 19:14 Hospital Day # Subjective: Apical chest tube removed today (it had less output and no air leak). Basilar chest tube still in place on suction this morning, no air leak. 200mL out/24h, still serous. CXR shows well expanded lung but with increasing L basilar opacity. WBC remains high at 15. Objective Vital Sign- Last 8 Hours Date Time Temp Pulse Resp B/P Pulse Ox O2 Delivery O2 Flow Rate FiO2 06/06/16 05:45 36.6 89 20 126/64 96 Room Air Intake and Output- Last 8 Hour 06/06/16 Cumulative From/Thru 07:00 05/31/16 13:21 - 06/06/16 06:34 Intake Total 450 ml 9494 ml Output Total 1450 ml 34540 ml Balance -1000 ml -1004 ml Intake Oral 450 ml 5836 ml IV Total 3658 ml Output Urine Total 1350 ml 9500 ml Drainage Total 100 ml 988 ml Estimated Blood Loss 10 ml # Voids 1 # Bowel Movements 0 0 General: Alert, Oriented X3, Cooperative Chest: L chest tube without air leak and serous fluid. No kinking in tube. Breathing easily on NC. Result Diagram: 06/06/16 0645 06/06/16 0645 Assessment & Plan Impression 75yof POD 3-4 VATS with washout for empyema. Apical chest tube removed yesterday 06/05/16. Problems: Plan Water seal remaining chest tube today. CXR in am. Due to increasing basilar opacity and persistent WBC, consider repeat chest CT in next 2-3 days, depending on clinical course, to determine if she is developing an abscess cavity. If so I would recommend CT guided drainage. VTE Prophylaxis: Sub-Q Heparin (Unfractionated) Resuscitation Status: CPR: Attempt Resuscitation Anjali Cabrera MD Jun 06, 2016 10:13
[2016-06-06 11:08] VITALS: BP 121/63; PULSE 95; RESP 16; O2SAT 98
[2016-06-06] MEDS: Polyethylene Glycol (PEG) 17 Gm Powder PO PRN (12:09)
--- NOTE | 2016-06-06 13:01 | PROG NOTE ---
[address] [address] PROGRESS NOTE PATIENT: MARLEEN CAMACHO : 1940 MR#: [id number] ADMIT: 05/31/2016 JOB ID: [id number] DATE: 06/06/2016 REASON FOR FOLLOWUP: Strep intermedius left-sided empyema. INTERVAL HISTORY: The patient continues to report loss of appetite and generalized nausea without vomiting. She has constipation. She denies fevers or chills. She still has left pleuritic chest pain with a deep inspiration and minimal cough, though of course she still has a single left chest tube in place. No abdominal pain per se. PHYSICAL EXAMINATION: Reveals an afebrile woman. Temp 36.6, pulse 95, respiratory rate 16, blood pressure 121/63. She is saturating well on room air. The patient is in no acute distress today but does appear tired. Oral cavity negative. Lungs with decreased breath sounds at the left base. A chest tube is still present at the left base. Cardiac tones regular rate and rhythm. The abdomen is soft and nontender. No skin rash. LABORATORIES: Include white blood count 15,500, platelet count 766,000. Creatinine 0.35. Urinalysis without white cells. Streptozyme was positive. Culture from the pleural space has grown strep intermedius here and at [facility]. It is susceptible to penicillin. Today's chest x-ray was reviewed with the patient on the monitor. It shows a small loculated effusion and airspace opacity at the left base. IMPRESSION: The patient continues to make slow progress, but I am concerned that she may have nausea due to her for Flagyl which has been added to her ceftriaxone for coverage of possible anaerobes. At this point, I think it is reasonable to switch to a single agent, and I think a reasonable choice here that provides coverage for strep and for anaerobes would be ertapenem. RECOMMENDATIONS: 1. Will DC to ceftriaxone as well as the Flagyl. 2. We will switch to ertapenem 1 g IV once a day. 3. ID will continue to follow this case with you. I think it is reasonable to keep the patient in hospital a bit longer, of course partly because she has a chest tube, and also she is feeling rather tired and anorexic at this point. 4. I will see the patient again on Thursday and will make some home antibiotic plans.
[2016-06-06] MEDS: Ertapenem Inj 1,000 MG in 0.9% Sodium Chloride 50 ML IV SCH (13:33)
[2016-06-06] MEDS: ALPRAZolam 0.5 mg Tablet PO PRN (15:56)
[2016-06-06] MEDS ORDERED: Ondansetron 2 mg/mL 2 mL Inj IVPUSH PRN (16:05)
[2016-06-06] MEDS ORDERED: 0.9% Sodium Chloride 500 ML IV ONE (16:05)
[2016-06-06 18:00] VITALS: BP 107/60; PULSE 103; RESP 16; O2SAT 97
--- NOTE | 2016-06-06 18:28 | NUR ---
Bowel Movement, Pain Patient had two bowel movements this shift. Stools soft, patient received stool softeners this shift. Patient reports some pain to the left side of abdomen this shift, states that it is well controlled with ordered pain medications. Care is ongoing.
[2016-06-06 20:50] VITALS: BP 120/59; PULSE 93; RESP 16; O2SAT 95
--- NOTE | 2016-06-06 21:23 | PCM.PNMED ---
Subjective Date of Service Jun 06, 2016 Subjective Patient is seen and examined. She complains of nausea and also not bowel movements since admission. She said she has pain when she moves around the chest tube site. 900 mL in the plerovac during this visit She is missing her dogsShe is missing her dogs. Exam Vital Signs Vital Sign - Last Date Time Temp Pulse Resp B/P Pulse Ox O2 Delivery O2 Flow Rate FiO2 06/06/16 05:45 36.6 89 20 126/64 96 Room Air 06/05/16 12:56 3.00 Intake and Output 06/05/16 06/05/16 06/06/16 Cumulative From/Thru 15:00 23:00 07:00 05/31/16 13:21 - 06/06/16 06:34 Intake Total 950 ml 450 ml 9494 ml Output Total 1300 ml 1450 ml 03428 ml Balance -350 ml -1000 ml -1004 ml Intake Oral 950 ml 450 ml 5836 ml IV Total 3658 ml Output Urine Total 1200 ml 1350 ml 9500 ml Drainage Total 100 ml 100 ml 988 ml Estimated Blood Loss 10 ml # Voids 1 # Bowel Movements 0 0 0 Exam General: NAD, sitting up in bed HEENT: NCat Eyes: [place] conjunctivae. No ptosis, PERRL Neck: No masses, trachea midline, no thyromegaly Lungs: CTA with normal respiratory effort, crackles over the thoracostomy site CV: RRR, no murmurs/rubs/gallops, normal PMI GI: Soft, non-tender with no hepatosplenomegaly MSK: no digital cyanosis Skin: Warm and dry. Area of tube removal site looks clean and dry Psych: A&O X3, with appropriate affect Neuro: No focal deficits IVs and Medications IV Fluids She was given a small 500 mL bolus today again to compensate for the fluid losses Medications Reviewed: Medications were reviewed in detail Lab and Diagnostics Result Diagram: 06/06/1664406/06/16644 Microbiology Thoracentesis fluid: AFB pending. Gram stain negative for organisms. Culture - no growth to date (original thoracentesis grew Streptococcus intermedius) Blood: no growth at 2 days. fungal culture pending. Urine: streptococcus pneumoniae Ag negative Nasopharangeal: MRSA negative serology: Streptozyme 248.5, Cryptococcus Ag negative, fungal antibodies pending . X-Rays, CTs and MRIs X-RAY CHEST, TWO VIEWS ([id number]) IMPRESSION: 1. Large left pleural effusion. No prior studies are available to determine the acuity of this finding. 2. Right basilar atelectasis. Dictated by: Sharri Dumont M.D. on 05/31/2016 at 13:53 Approved by: Sharri Dumont M.D. on 05/31/2016 at 13:54 PROCEDURE: CT CHEST WITHOUT CONTRAST ([id number]) INDICATIONS: Pleural effusion. S/P thoracentesis 10:30. IMPRESSION: 1. Large loculated left-sided pleural effusion is suspicious for possible empyema. 2. Extensive pulmonary consolidation is most suggestive of atelectasis. Superimposed pneumonia cannot be entirely excluded. 3. Small pericardial effusion. Dictated by: Nazario Guardado M.D. on 06/02/2016 at 10:18 Date of Service: 06/04/16 X-RAY CHEST ONE VIEW, PORTABLE IMPRESSION: No pneumothorax on the left, left lower lobe pneumonia, minimal pneumonitis right lung base, superimposed chronic mild interstitial prominence. Dictated by: Jericho Pierson M.D. on 06/04/2016 at 10:05 . Additional Diagnostics 05/28/2016 thoracentesis labs Protein: 5.1 Glucose: 44 LDH: 533 Amylase: 513 White blood cells: 7072 Red blood cells: 11,020 PATHOLOGY REPORT DATE COLLECTED:06/02/2016 00:00 Pleural Fluid FINAL DIAGNOSIS: PLEURAL FLUID (SIDE NOT SPECIFIED): NEGATIVE FOR MALIGNANT CELLS. NEUTROPHILS, LYMPHOCYTES, AND RARE MESOTHELIAL CELLS ARE PRESENT. . Assessment & Plan Patient is a 75yof who initially presented to [facility] where thoracentesis revealed left-sided pleural effusion demonstrating exudative fluid (05/28). She subsequently worsened with similar symptoms and transferred to [facility] ER (05/31) for further evaluation. 1. Acute exudative pleural effusion secondary to strep intermedius empyema : -- Large Left Empyema s/p left thoracoscopy with decortication and washout (>1200 mL of purulent fluid was aspirated). Lung expanded. Chest tubes in place and draining serosanguinous fluid, will await cultures -- Ceftriaxone, Flagyl or discontinued per ID. The operative for a single agent ertapenem, they also felt nausea was caused by antibiotic Flagyl. Latest thoracentesis fluid culture show pending AFB, strep sensitive to penicillin, ceftriaxone and cefotaxime resistant to clindamycin 2. Hypoxia, present on admission Supplemental oxygen, saturating well on 3L by NC: Resolved after the procedure no longer on oxygen 3. Leukocytosis Still mildly elevated Likely secondary to surgery. Continue to monitor with daily labs 4. Hyponatremia, present on admission: Resolved #5 Iron deficiency due to chronic hemorrhoids, present on admission: H&H stable at 9.9. #6 reactive thrombocytosis, present on admission continue to monitor with daily labs #7 acute tachycardia: Small blood bolus challenge of 500 mL given as this is likely due to her chest tube suction and fluid losses. Continue to monitor PLAN - Continue incentive spirometry, encourage patient to breathe deeply several times per day and not suppress her cough Chronic attention deficit the large or continue Adderall medication Chronic anxiety: Continue home medications Xanax Chronic depression: Continue medication Prozac DVT prophylaxis: Holding up chemical prophylaxis due to bleeding risk continue SCDs Disposition: Possible DC to home on the if Gen. surgery moves existing tube . Pain Evaluation: Adequate Pain Control GI Prophylaxis: Not indicated VTE Prophylaxis: Sub-Q Heparin (Unfractionated) VTE Mechanical Devices: Intermittant Pneumatic CD Resuscitation Status: CPR: Attempt Resuscitation Emily Lombardi DO Jun 06, 2016 08:33
--- NOTE | 2016-06-07 01:45 | NUR ---
Restlessness At beginning of shift patient was restless, and appeared very uncomfortable. Patient denied any pain, and refused xanax even though admitting to being very anxious. Patient continued to be anxious until around 2200 where she was able to fall asleep, and has been asleep since. O2 sats 91% on RA, so 2L O2 NC is being worn this evening to maintain sats >93%. Will continue to monitor anxiousness, and continue Q1 hour checks.
[2016-06-07 06:29] LABS: BASOPHILS % (AUTO) 0.3 % (0-3); EOSINOPHILS % (AUTO) 0.6 % (0-5); MONOCYTES % (AUTO) 8.8 % (4-12); Mean Corpuscular Hemoglobin 27.3 pg (27.0-35.0); Mean Corpuscular Volume 83.3 fL (81-100); NEUTROPHILS % (AUTO) 72.7 % (40-74); Platelet Count 770 bil/L (150-400)
[2016-06-07 06:30] VITALS: BP 111/67; PULSE 89; RESP 16; O2SAT 96
[2016-06-07] MEDS: Amphetamines (Mixed) 10 mg Tablet PO SCH (08:27)
[2016-06-07] MEDS: Ertapenem Inj 1,000 MG in 0.9% Sodium Chloride 50 ML IV SCH (08:28)
--- NOTE | 2016-06-07 11:04 | DRSVH ---
PROCEDURE: X-RAY CHEST ONE VIEW ([id number]) INDICATIONS: empyema TECHNIQUE: One view of the chest was acquired. COMPARISON: [facility], CR, XR CHEST 1VW (PORTABLE), 06/06/2016, 8:17. [facility], CR, XR CHEST 1VW (PORTABLE), 06/05/2016, 14:30. FINDINGS: Surgical changes and devices: No pleural drain and left lung base ne. Lungs and pleura: No residual left-sided pleural effusions and only a scant degree of left lateral l sally base pneumothorax remains, as was previously the case. Lungs are clear on the right except for m ild lung base scarring is but left lower lobe pneumonia persists. Mediastinum: Mediastinal contours appear normal. Heart size is normal. Bones and chest wall: No suspicious bony lesions. Overlying soft tissues appear unremarkable. IMPRESSION: Persistent left lower lobe pneumonia with a small triangle of residual pneumothorax after left pleural drain placement, which has not increased in size from the comparison plain film 06/06/16 . Relatively large lung volumes, suspect COPD. Slight subpulmonic lateral right pleural effusion. Dictated by: Jericho Pierson M.D. on 06/07/2016 at 11:00 Approved by: Jericho Pierson M.D. on 06/07/2016 at 11:02
--- NOTE | 2016-06-07 11:25 | PROG NOTE ---
[address] [address] PROGRESS NOTE PATIENT: MARLEEN CAMACHO : 1940 MR#: [id number] ADMIT: 05/31/2016 JOB ID: [id number] DATE: 06/07/2016 SUBJECTIVE: The patient is seen in followup. She had a left VATS for an empyema. In the last 24 hours, her bowels have opened up. She complains of pain at her left chest tube site. PHYSICAL EXAMINATION: She has no air leak. She has put out 110 cc of serous fluid overnight. Chest x-ray today shows much better expansion of her left lower lobe and no pneumothorax and no pleural effusion. IMPRESSION: I think overall she is doing quite well. I will leave the chest tube in today but I think a real good chance it will be removed tomorrow.
--- NOTE | 2016-06-07 13:14 | PCM.PNMED ---
Subjective Date of Service Jun 07, 2016 Subjective Patient is an very anxious mood today. She is concerned about not finding a PCP who would prescribe her psychiatric medications comfortably. She states that at her age people feel it is unusual. For for her to be on Adderall. She calmed down after several minutes of counseling, her prn Xanax was given. Commended her on taking minimal doses of both Adderall and Xanax. She has a little bit pain over the thoracostomy tube site, but otherwise very stable. Exam Vital Signs Vital Sign - Last Date Time Temp Pulse Resp B/P Pulse Ox O2 Delivery O2 Flow Rate FiO2 06/06/16 20:50 36.8 93 16 120/59 95 Room Air 06/05/16 12:56 3.00 Intake and Output 06/06/16 06/06/16 06/07/16 Cumulative From/Thru 15:00 23:00 07:00 05/31/16 13:21 - 06/07/16 03:48 Intake Total 1266 ml 15898 ml Output Total 700 ml 50970 ml Balance 566 ml -438 ml Intake Oral 700 ml 6536 ml IV Total 566 ml 4224 ml Output Urine Total 700 ml 37121 ml Drainage Total 988 ml Estimated Blood Loss 10 ml # Voids 1 # Bowel Movements 2 2 Exam General: NAD, laying in bed, anxious HEENT: NCAT Eyes: [place] conjunctivae. No ptosis, PERRL Neck: No masses, trachea midline, no thyromegaly CV: RRR, no murmurs/rubs/gallops, normal PMI GI: Soft, non-tender with no hepatosplenomegaly Skin: Warm and dry. No rash, lesions or ulcers Psych: A&O X3, with rushed affect Exam heart: Regular rate and rhythm Lungs clear to auscultation except in the thoracostomy area in the left lobe were mild crackles Extremities negative for edema Mood anxious IVs and Medications Medications Reviewed: Medications were reviewed in detail Lab and Diagnostics Result Diagram: 06/06/1664406/06/16644 Microbiology Thoracentesis fluid: AFB pending. Gram stain negative for organisms. Culture - no growth to date (original thoracentesis grew Streptococcus intermedius) Blood: no growth at 2 days. fungal culture pending. Urine: streptococcus pneumoniae Ag negative Nasopharangeal: MRSA negative serology: Streptozyme 248.5, Cryptococcus Ag negative, fungal antibodies pending . X-Rays, CTs and MRIs X-RAY CHEST, TWO VIEWS ([id number]) IMPRESSION: 1. Large left pleural effusion. No prior studies are available to determine the acuity of this finding. 2. Right basilar atelectasis. Dictated by: Sharri Dumont M.D. on 05/31/2016 at 13:53 Approved by: Sharri Dumont M.D. on 05/31/2016 at 13:54 PROCEDURE: CT CHEST WITHOUT CONTRAST ([id number]) INDICATIONS: Pleural effusion. S/P thoracentesis 10:30. IMPRESSION: 1. Large loculated left-sided pleural effusion is suspicious for possible empyema. 2. Extensive pulmonary consolidation is most suggestive of atelectasis. Superimposed pneumonia cannot be entirely excluded. 3. Small pericardial effusion. Dictated by: Nazario Guardado M.D. on 06/02/2016 at 10:18 Date of Service: 06/04/16 X-RAY CHEST ONE VIEW, PORTABLE IMPRESSION: No pneumothorax on the left, left lower lobe pneumonia, minimal pneumonitis right lung base, superimposed chronic mild interstitial prominence. Dictated by: Jericho Pierson M.D. on 06/04/2016 at 10:05 .Persistent left lower lobe pneumonia with a small triangle of residual pneumothorax after left pleural drain placement, which has not increased in size from the comparison plain film 06/06/16. Relatively large lung volumes, suspect COPD. Slight subpulmonic lateral right pleural effusion. Additional Diagnostics 05/28/2016 thoracentesis labs Protein: 5.1 Glucose: 44 LDH: 533 Amylase: 513 White blood cells: 7072 Red blood cells: 11,020 PATHOLOGY REPORT DATE COLLECTED:06/02/2016 00:00 Pleural Fluid FINAL DIAGNOSIS: PLEURAL FLUID (SIDE NOT SPECIFIED): NEGATIVE FOR MALIGNANT CELLS. NEUTROPHILS, LYMPHOCYTES, AND RARE MESOTHELIAL CELLS ARE PRESENT. . Assessment & Plan Patient is a 75yof who initially presented to [facility] where thoracentesis revealed left-sided pleural effusion demonstrating exudative fluid (05/28). She subsequently worsened with similar symptoms and transferred to [facility] ER (05/31) for further evaluation. 1. Acute exudative pleural effusion secondary to strep intermedius empyema : -- Large Left Empyema s/p left thoracoscopy with decortication and washout (>1200 mL of purulent fluid was aspirated). Lung expanded. Chest tubes in place and draining serosanguinous fluid, will await cultures -- Ceftriaxone, Flagyl or discontinued per ID. The operative for a single agent ertapenem, they also felt nausea was caused by antibiotic Flagyl. Latest thoracentesis fluid culture show pending AFB, strep sensitive to penicillin, ceftriaxone and cefotaxime resistant to clindamycin -- Patient was switched to ertapenem yesterday plan is to have her on it for [address] Cox. We will need a PICC line prior to DC likely on Thursday -- Surgery feels that her lungs are expanding, today's x-ray looked better. They may consider discontinuing the existing tube tomorrow. We appreciate the recommendations 2. Hypoxia, present on admission Supplemental oxygen, saturating well on 3L by NC: Resolved after the procedure , no longer on oxygen 3. Leukocytosis Still mildly elevated Likely secondary to surgery. Continue to monitor with daily labs. Slowly improving 4. Hyponatremia, present on admission: Resolved #5 Iron deficiency due to chronic hemorrhoids, present on admission: H&H stable. #6 reactive thrombocytosis, present on admission continue to monitor with daily labs #7 acute tachycardia: Small blood bolus challenge of 500 mL given as this is likely due to her chest tube suction and fluid losses. Continue to monitor. Much improved today. There is a component of anxiety as well. She is started on BuSpar today PLAN - Continue incentive spirometry, encourage patient to breathe deeply several times per day and not suppress her cough Chronic attention deficit the large or continue Adderall medication Chronic anxiety: Continue home medications Xanax, patient is started on new medication BuSpar. Chronic depression: Continue medication Prozac DVT prophylaxis: Holding up chemical prophylaxis due to bleeding risk continue SCDs Disposition: Possible DC to home on the if Gen. surgery moves existing tube . Pain Evaluation: Adequate Pain Control GI Prophylaxis: Not indicated VTE Prophylaxis: Sub-Q Heparin (Unfractionated) VTE Mechanical Devices: Intermittant Pneumatic CD Resuscitation Status: CPR: Attempt Resuscitation Emily Lombardi DO Jun 07, 2016 06:08
[2016-06-07] MEDS: ALPRAZolam 0.5 mg Tablet PO PRN ×2 (13:28→20:50)
[2016-06-07] MEDS: BusPIRone 15 mg Dividose Tablet PO SCH ×2 (14:03→20:51)
[2016-06-07 14:27] VITALS: BP 109/64; PULSE 99; RESP 17; O2SAT 95
--- NOTE | 2016-06-07 15:20 | NUR ---
Social Work: Continued Discharge Planning D: EMR reviewed; pt is on day 7 of stay for left pulmonary effusion. Pt remains with chest tubes in place and IV ABX. Pt may require IV ABX at discharge, per MD in rounds. Infectious Disease is following and will make recommendations for discharge medications on Thursday however do not provide in-depth details about whether these will be IV or oral. Pt has been ambulating I (20 feet per care trends). Pt may require PT evaluation if this is not her baseline. PRIMING MIXTURE CARRIER will address ambulatory status with MD at am rounds. A: Pt who lives at home with family. P: Evolving; PRIMING MIXTURE CARRIER to continue to follow pt's clinical progress and recommendations from ID for ABX course. PRIMING MIXTURE CARRIER to also follow up with MD at multidisciplinary rounds to discuss pt's ambulation/mobility progress. BANG Reese
--- NOTE | 2016-06-07 17:34 | NUR ---
Mood, Chest Tube Patient states she is in much better mood this shift. Patient does report some intermittent anxiety, improved through therapeutic interventions and ordered medications. Chest tube intact, water seal. Care is ongoing.
[2016-06-07 22:00] VITALS: BP 115/67; PULSE 93; RESP 22; O2SAT 93
[2016-06-08 02:15] VITALS: BP 116/66; PULSE 92; RESP 20; O2SAT 98
[2016-06-08 06:15] VITALS: BP 102/62; PULSE 89; RESP 24; O2SAT 98
[2016-06-08 07:43] LABS: Mean Corpuscular Hemoglobin 26.7 pg (27.0-35.0); Mean Corpuscular Volume 84.2 fL (81-100)
[2016-06-08] MEDS: Amphetamines (Mixed) 10 mg Tablet PO SCH (08:31)
[2016-06-08] MEDS: Ertapenem Inj 1,000 MG in 0.9% Sodium Chloride 50 ML IV SCH (08:31)
[2016-06-08] MEDS: BusPIRone 15 mg Dividose Tablet PO SCH ×2 (08:31→19:54)
[2016-06-08] MEDS: ALPRAZolam 0.5 mg Tablet PO PRN (08:32)
[2016-06-08 08:34] VITALS: BP 101/54; PULSE 94; RESP 20; O2SAT 100
--- NOTE | 2016-06-08 10:00 | NUR ---
CHEST TUBE/ACTIVITY Chest tube was d/cd by Dr. Glez this morning. Dressing is CDI. Patient denies pain. Tolerating liquids PO. Poor appetite. Denies nausea. No emesis noted. Denies SOB. PO2 on room air is in the high 90's. Patient has been able to ambulate in the room with SBA. Patient did not want to get OOB at this time. Care continues. Addendum: 06/08/16 at 1719 by RAMAKRISHNA WELLS RN AMBULATION/DIET Instructed patient RE: Importance of ambulation. Attempted X 6 to assist with it since the start of the shift, however, patient continues to refuse. Per patient she just feels weak at this time. Encouraged to increase PO intake. She continues to refuse her meals/Ensures. Patients son brought food from home and per patient she will try to work on this. Care continues.
[2016-06-08 13:17] VITALS: BP 156/66; PULSE 102; RESP 18; O2SAT 95
--- NOTE | 2016-06-08 13:27 | PROG NOTE ---
[address] [address] PROGRESS NOTE PATIENT: MARLEEN CAMACHO : 1940 MR#: [id number] ADMIT: 05/31/2016 JOB ID: [id number] DATE: The patient is seen in followup. His chest x-ray showed significant improvement and she also has had very little to immeasurable drainage out of her chest tube today. Her remaining left chest tube is removed and the site covered with an occlusive dressing. She she tolerated it well. IMPRESSION: Her last chest tube is removed. PLAN: Extent of hospitalization and antibiotics will be determined by her hospitalist team and Dr. Cox. I explained this to her.
[2016-06-08] MEDS ORDERED: 0.9% Sodium Chloride 1,000 ML IV ONE (14:10)
--- NOTE | 2016-06-08 14:52 | NUR ---
patient is refusing to ambulate at this time x2 attempts
--- NOTE | 2016-06-08 17:21 | NUR ---
Social Work: Readiness for Discharge D: Pt discussed in am rounds. MD believes that pt will require IV ABX at discharge and is awaiting ID recommendations. Pt will likely have a PICC line placed tomorrow with anticipated discharge following. CERAMIC ENGINEERING PROFESSOR met with pt at bedside to review discharge plan and assess for unmet needs. Pt understands that she will likely need IV ABX; options were reviewed with her including SNF, Outpatient/MOC and Private Pay Home Infusions. Pt states that she would prefer to complete these as an outpatient and is willing to come to [facility] for these treatments. Pt lives in [place] however does not want to complete these at [facility]. Pt states that she has been feeling weak and is wondering how to acquire a FWW. CERAMIC ENGINEERING PROFESSOR explained Medicare DME benefit and provided pt and son with DME supplier list. Pt's son will acquire the pt a walker from [facility] and pay privately. CERAMIC ENGINEERING PROFESSOR discussed possible home health for the pt. She would like to think about this and discuss it at time of discharge. A: Pt who is I at baseline P: Anticipate pt to discharge home with outpatient IV ABX at [facility] with Dr. Cox to arrange; CERAMIC ENGINEERING PROFESSOR to confirm IV ABX schedule and r/o Home Health with the pt at discharge. BANG Reese
--- NOTE | 2016-06-08 17:28 | NUR ---
[facility]
[2016-06-08 20:17] VITALS: BP 104/65; PULSE 93; RESP 16; O2SAT 94
--- NOTE | 2016-06-08 22:06 | PCM.PNMED ---
Subjective Date of Service Jun 08, 2016 Subjective Patient is seen and examined. She is a much better mood today not anxious like she was yesterday. She has tolerated BuSpar well . Encouraged her to ambulate in the hallways as surgery has removed the remaining chest tube today. Dr. Thom Glez has signed off today . States her pain is tolerable and she is having regular bowel movements . She is also not asking for pain medication per staff. This could be causing her occasional tachycardia. We encouraged her to take her pain medication as needed Exam Vital Signs Vital Sign - Last Date Time Temp Pulse Resp B/P Pulse Ox O2 Delivery O2 Flow Rate FiO2 06/08/16 02:15 36.9 92 20 116/66 98 Room Air 06/05/16 12:56 3.00 Intake and Output 06/07/16 06/07/16 06/08/16 Cumulative From/Thru 15:00 23:00 07:00 05/31/16 13:21 - 06/07/16 23:47 Intake Total 100 ml 865 ml 83598 ml Output Total 510 ml 1225 ml 77461 ml Balance -410 ml -360 ml -1208 ml Intake Oral 100 ml 800 ml 7436 ml IV Total 65 ml 4289 ml Output Urine Total 400 ml 1100 ml 42280 ml Chest Tube Drainage Total 110 ml 110 ml Drainage Total 125 ml 1113 ml Estimated Blood Loss 10 ml # Voids 1 2 # Bowel Movements 1 3 6 Exam General: NAD, laying in bed, anxious HEENT: NCAT Eyes: [place] conjunctivae. No ptosis, PERRL Neck: No masses, trachea midline, no thyromegaly CV: RRR, no murmurs/rubs/gallops, normal PMI GI: Soft, non-tender with no hepatosplenomegaly Skin: Warm and dry. No rash, lesions or ulcers Exam heart: Regular rate and rhythm Lungs clear to auscultation except in the thoracostomy area in the left lobe were mild crackles. Much improved from yesterday Extremities negative for edema Psychiatric Mood pleasant, affect normal IVs and Medications IV Fluids She is given a liter bolus today. To address tachycardia Medications Reviewed: Medications were reviewed in detail Lab and Diagnostics Laboratory Tests Test 06/08/16 07:25 White Blood Count 12.5th/mm3 (3.8-10.1) Red Blood Count 3.67mil/mm3 (3.90-5.20) Hemoglobin 9.8g/dL (12.0-15.6) Hematocrit 30.9% (35.0-46.0) Mean Corpuscular Volume 84.2fL (81-100) Mean Corpuscular Hemoglobin 26.7pg (27.0-35.0) Mean Corpuscular Hemoglobin Concent 31.7% (32.0-37.0) Red Cell Distribution Width 14.3% (12.3-15.4) Platelet Count 829bil/L (150-400) Sodium Level 135mEq/L (134-144) Potassium Level 4.0mEq/L (3.5-5.2) Chloride Level 97mEq/L (97-108) Carbon Dioxide Level 27mmol/L (18-29) Blood Urea Nitrogen 6mg/dL (8-27) Creatinine 0.34mg/dL (0.57-1.00) Estimat Glomerular Filtration Rate 270mL/min (>59) Glucose Level 88mg/dL (60-99) Calcium Level 8.2mg/dL (8.5-10.1) Microbiology 05/31/16 Blood Culture - Final, Resulted NO GROWTH AFTER 5 DAYS 05/31/16 Blood Fungal Culture - Preliminary, Resulted No Fungus isolated at one week 06/02/16 - Final, Resulted 06/02/16 Acid Fast Bacilli Smear - Final, Resulted 06/02/16 Acid Fast Bacilli Culture, Resulted Pending 06/01/16 MRSA (PCR) - Final, Complete 06/01/16 Streptococcus pneumoniae Ag Screen - Final, Complete Result Diagram: 06/07/16 0609 06/07/16 0609 Microbiology Thoracentesis fluid: AFB pending. Gram stain negative for organisms. Culture - no growth to date (original thoracentesis grew Streptococcus intermedius) Blood: no growth at 2 days. fungal culture pending. Urine: streptococcus pneumoniae Ag negative Nasopharangeal: MRSA negative serology: Streptozyme 248.5, Cryptococcus Ag negative, fungal antibodies pending . X-Rays, CTs and MRIs X-RAY CHEST, TWO VIEWS ([id number]) IMPRESSION: 1. Large left pleural effusion. No prior studies are available to determine the acuity of this finding. 2. Right basilar atelectasis. Dictated by: Sharri Dumont M.D. on 05/31/2016 at 13:53 Approved by: Sharri Dumont M.D. on 05/31/2016 at 13:54 PROCEDURE: CT CHEST WITHOUT CONTRAST ([id number]) INDICATIONS: Pleural effusion. S/P thoracentesis 10:30. IMPRESSION: 1. Large loculated left-sided pleural effusion is suspicious for possible empyema. 2. Extensive pulmonary consolidation is most suggestive of atelectasis. Superimposed pneumonia cannot be entirely excluded. 3. Small pericardial effusion. Dictated by: Nazario Guardado M.D. on 06/02/2016 at 10:18 Date of Service: 06/04/16 X-RAY CHEST ONE VIEW, PORTABLE IMPRESSION: No pneumothorax on the left, left lower lobe pneumonia, minimal pneumonitis right lung base, superimposed chronic mild interstitial prominence. Dictated by: Jericho Pierson M.D. on 06/04/2016 at 10:05 .Persistent left lower lobe pneumonia with a small triangle of residual pneumothorax after left pleural drain placement, which has not increased in size from the comparison plain film 06/06/16. Relatively large lung volumes, suspect COPD. Slight subpulmonic lateral right pleural effusion. Additional Diagnostics 05/28/2016 thoracentesis labs Protein: 5.1 Glucose: 44 LDH: 533 Amylase: 513 White blood cells: 7072 Red blood cells: 11,020 PATHOLOGY REPORT DATE COLLECTED:06/02/2016 00:00 Pleural Fluid FINAL DIAGNOSIS: PLEURAL FLUID (SIDE NOT SPECIFIED): NEGATIVE FOR MALIGNANT CELLS. NEUTROPHILS, LYMPHOCYTES, AND RARE MESOTHELIAL CELLS ARE PRESENT. . Assessment & Plan Patient is a 75yof who initially presented to [facility] where thoracentesis revealed left-sided pleural effusion demonstrating exudative fluid (05/28). She subsequently worsened with similar symptoms and transferred to [facility] ER (05/31) for further evaluation. 1. Acute exudative pleural effusion secondary to strep intermedius empyema : -- Large Left Empyema s/p left thoracoscopy with decortication and washout (>1200 mL of purulent fluid was aspirated). Lung expanded. Chest tubes in place and draining serosanguinous fluid, will await cultures -- Ceftriaxone, Flagyl or discontinued per ID. The operative for a single agent ertapenem, they also felt nausea was caused by antibiotic Flagyl. Latest thoracentesis fluid culture show pending AFB, strep sensitive to penicillin, ceftriaxone and cefotaxime resistant to clindamycin -- Patient was switched to ertapenem yesterday plan is to have her on it for [address] Cox. We will need a PICC line prior to DC likely on Thursday -- Surgery feels that her lungs are expanding, today's x-ray looked better. They may consider discontinuing the existing tube tomorrow. -- Surgery has removed the remaining tube today on 06/08 and signed off. We appreciate their recommendations and support 2. Hypoxia, present on admission Supplemental oxygen, saturating well on 3L by NC: Resolved after the procedure , no longer on oxygen -- Patient is no longer on oxygen06/08 3. Leukocytosis Still mildly elevated Likely secondary to surgery. Continue to monitor with daily labs. Slowly improving 4. Hyponatremia, present on admission: Resolved #5 Iron deficiency due to chronic hemorrhoids, present on admission: H&H stable. #6 reactive thrombocytosis, present on admission continue to monitor with daily labs #7 acute tachycardia: -- She is maintaining a heart rate in the upper 90s. EKG is ordered today ( showed sinus tachycardia and low 100s ) and 1 L bolus is given -- Encouraged hydration -- Also encouraged her to take her pain medication as needed to stay ahead of the pain, as this will help maintain her heart rate PLAN - Continue incentive spirometry, encourage patient to breathe deeply several times per day and not suppress her cough Chronic attention deficit the large or continue Adderall medication Chronic anxiety: Continue home medications Xanax, patient is started on new medication BuSpar. Chronic depression: Continue medication Prozac DVT prophylaxis: Holding up chemical prophylaxis due to bleeding risk continue SCDs Disposition: Discharge to home on the after Dr. Cox sees her . Pain Evaluation: Adequate Pain Control GI Prophylaxis: Not indicated VTE Prophylaxis: Sub-Q Heparin (Unfractionated) VTE Mechanical Devices: Intermittant Pneumatic CD Resuscitation Status: CPR: Attempt Resuscitation Emily Lombardi DO Jun 08, 2016 05:59
[2016-06-09 05:28] VITALS: BP 107/66; PULSE 95; RESP 18; O2SAT 92
--- NOTE | 2016-06-09 05:36 | NUR ---
Activity Overnight pt has denied pain. Dressing to left chest is CDI. Pt has been on RA with O2 sats mid 90s. Pt ambulated to BR with SBA, still some generalized weakness but reports to be "improving overall."
[2016-06-09] MEDS ORDERED: Bisacodyl RECTAL (05:51)
[2016-06-09] MEDS ORDERED: BUSP15TA3 PO (05:51)
[2016-06-09] MEDS ORDERED: OXYC5TAB72 PO (05:51)
[2016-06-09] MEDS ORDERED: ALPR0.5T8 PO (05:51)
--- NOTE | 2016-06-09 06:03 | PCM.DIMED ---
Discharge Instructions Date of Service Jun 09, 2016 Dates of Hospitalization May 31, 2016 at 19:14 Discharge Diagnosis Discharge Diagnosis Sepsis due to Exudative pleural effusions due to Empyema due to strep intermidium/angiosus, Acute hypoxic Resp Failure, Hyponatremia, Metabolic Acidosis Reactive Throbocytosis, YESSICA due to hemorrhoids, ADHD, Anxiety d/o Diet No restrictions Activity No restrictions Call your provider Fever or Chills, Shortness of breath, Bleeding, Chest pain, Vomitting, Excessive diarrhea, Weakness (unilateral), Other Patient Instructions Follow-up plan Please follow up with PCP in 2 weeks Please follow up with Dr. Cox in ?? f/U with Surgery?? Emily Lombardi DO Jun 09, 2016 06:03
[2016-06-09 06:18] LABS: Mean Corpuscular Hemoglobin 27.2 pg (27.0-35.0); Mean Corpuscular Volume 83.2 fL (81-100)
[2016-06-09] MEDS: BusPIRone 15 mg Dividose Tablet PO SCH ×2 (09:36→21:17)
[2016-06-09] MEDS: Amphetamines (Mixed) 10 mg Tablet PO SCH (09:36)
[2016-06-09] MEDS: Ertapenem Inj 1,000 MG in 0.9% Sodium Chloride 50 ML IV SCH (09:37)
[2016-06-09 09:39] VITALS: BP 99/56; PULSE 107; RESP 20; O2SAT 94
--- NOTE | 2016-06-09 09:48 | PCM.PNSURG ---
Subjective Date of Service: Jun 09, 2016 Visit Information: Reason for Visit Left Pulmonary Effusion Surgery/Surgery Date Post-Op Day # 6 Date of Admission: May 31, 2016 at 19:14 Hospital Day # Subjective: Chest tube was removed yesterday. The patient denies any shortness of breath. She has occasional nonproductive cough. She is ambulating short distances in the room with the assistance of a front wheel walker. Pain is well-controlled with oral Tylenol and oxycodone. She is beginning to eat more food. Postop General: No Shortness of Breath Gastrointestinal: Tolerating Oral Feedings, No N/V Pain Management: PO Postop Activity: Ambulates with Assist Device, Ambulating in Room Only Objective Vital Sign- Last 8 Hours Date Time Temp Pulse Resp B/P Pulse Ox O2 Delivery O2 Flow Rate FiO2 06/09/16 09:39 37.2 107 20 99/56 94 Room Air 06/09/16 05:28 36.7 95 18 107/66 92 Room Air Intake and Output- Last 8 Hour 06/09/16 Cumulative From/Thru 07:00 05/31/16 13:21 - 06/09/16 06:28 Intake Total 200 ml 78224 ml Output Total 600 ml 12659 ml Balance -400 ml -688 ml Intake Oral 200 ml 8736 ml IV Total 5359 ml Output Urine Total 600 ml 11898 ml Urine/Stool Mix 500 ml Chest Tube Drainage Total 110 ml Drainage Total 1113 ml Estimated Blood Loss 10 ml # Voids 2 10 # Bowel Movements 10 General: Alert, Cooperative, No Acute Distress Lungs: Rhonchorus (few rhonchi in the left reich) Heart: Regular Rate/Rhythm Chest: Chest tube site under dressing Extremities: Thigh&Calf Soft/Nontender Neuro: Normal Speech Catheters: None Result Diagram: 06/09/16 0547 06/09/16 0547 Assessment & Plan Impression Primary diagnosis: Acute exudative left pleural effusion secondary to strep intermedius empyema. POD #6, surgically stable for discharge. Other chronic conditions: 1. Osteomyelitis in her left tibia at [age] years old. Treated without surgery. 2. Cataracts. 3. Anxiety and depression. 4. ADHD. 5. Hypothyroidism. 6. Iron deficiency anemia secondary to chronic hemorrhoids Problems: Plan 1. Chest tube site dressing may be removed and left open to air. 2. Follow-up in the office with Dr. Cabrera in 2-3 weeks with a chest x-ray. Pain Management: Oral analgesic VTE Prophylaxis: Sub-Q Heparin (Unfractionated) Resuscitation Status: CPR: Attempt Resuscitation Colton Link PA-C Jun 09, 2016 09:48
[2016-06-09] MEDS ORDERED: 0.9% Sodium Chloride 1,000 ML IV ONE (10:50)
[2016-06-09] MEDS ORDERED: Phenylephrine-Mineral Oil 28 Gm Ointment RECTAL PRN (11:00)
[2016-06-09] MEDS: ALPRAZolam 0.5 mg Tablet PO PRN (11:10)
[2016-06-09 13:00] VITALS: BP 99/61; PULSE 100; RESP 16; O2SAT 94
[2016-06-09] MEDS: Amoxicillin-Clav 875-125 mg Tablet PO SCH ×2 (14:05→21:16)
--- NOTE | 2016-06-09 14:17 | DRSVH ---
[facility] [address] [facility] [facility] [place] [address] Echocardiogram Report Name: MARLEEN CAMACHO Date : 06/09/2016 Height: 63 in Hospital Exam Location: [facility] Weight: 135 lb Gender: Female BSA: 1.6 m2 : 1940 Age: 75 yrs BP: 99/56 mmHg Reason For Study: TACHYCARDIA Ordering Physician: HOSPITALIST [facility] Performed By: Quincy Saha Referring Physician: Birgit Ricks Interpretation Summary Normal left ventricle size with hyperdynamic function. The ejection fraction is 65-70%. Grade I diastolic dysfunction. Mild aortic valve sclerosis. There is a trivial pericardial effusion noted. There is a small right-sided pleural effusion. Procedure: A two-dimensional transthoracic echocardiogram with color flow and Doppler was performed. The study quality was technically adequate. There is no prior echocardiogram noted for this patient. The patient was in normal sinus rhythm during the exam. The patient was tachycardic with a heart rate of 96-102 beats per minute. Left Ventricle: The left ventricle is normal in size. There is normal left ventricular wall thickness. The left ventricle is hyperdynamic. The ejection fraction is estimated to be 65-70%. There are no focal wall motion abnormalities. Assessment of diastolic parameters indicates a relaxation abnormality of the left ventricle, consistent with normal filling pressures. Right Ventricle: The right ventricle is normal in size and function. Atria: Both atria are normal in size. The interatrial septum is intact with no evidence for an atrial septal defect. Mitral Valve: The mitral valve is normal in structure and function. There is no mitral regurgitation noted. Aortic Valve: The aortic valve is trileaflet. The aortic valve opens well. There is mild aortic valve sclerosis. No aortic regurgitation is present. Tricuspid Valve: The tricuspid valve is normal in structure and function. No tricuspid regurgitation. Pulmonary artery pressures cannot be estimated because of the lack of a measurable TR jet velocity. Pulmonic Valve: The pulmonic valve is normal in structure and function. There is no pulmonic valvular regurgitation. Great Vessels: The aortic root is normal size. The dimensions of the ascending aorta are normal. The pulmonary artery is normal size. The IVC is of normal diameter and collapses greater than 50% with a sniff. This suggests a low right atrial pressure of 3 mm Hg. Pericardium/ Pleura There is a trivial pericardial effusion noted. There are no echocardiographic indications of cardiac tamponade. There is a small right-sided pleural effusion. MMode/2D Measurements & Calculations LVIDd: 4.7 cm RA long axis LVOT diam LVIDs: 2.9 cm LA A2 area: 14.0 cm FS: 36.8 % LA A4 area: 19.6 cm RA area Ao root diam EPSS: 0.41 cm LA length (vol): 5.7 cm IVSd: 0.74 cm LA vol: 40.7 ml : 17.0 cm Aortic Jxn LVPWd: 0.93 cm LA vol index RA vol: 53.8 ml RA asc Aorta : 32.9 mm2 Diam: 2.6 cm IVC diam: 1.6 cm LV solis. diameter/BSA LV sys. diameter/BSA RVD1 (basal) RVD2 (mid) (cm/m^2): 2.8 (cm/m^2): 1.8 : 3.2 cm Doppler Measurements & Calculations Ao V2 max MV E max patric MV E/A: 0.76 PA V2 max : 219.1 cm/sec : 51.9 cm/sec Med Peak E' Patric : 108.6 cm/sec Ao max P.2 mmHg MV A max patric PA mean PG Ao mean P.7 mmH.6 cm/sec E/E' med: 7.4 LVOT Max Patric Pulm A Revs Dur PA Accel Time : 167.5 cm/sec : 0.11 sec MV A dur KRISTAN(I,D): 2.6 cm : 0.09 sec sev ratio: 0.84 MV dec time: 0.24 secAo V2 mean LV V1 max PG PA V2 mean : 166.0 cm/sec : 68.8 cm/sec Ao V2 VTI: 39.6 cm LV V1 VTI PA pr(Accel) KRISTAN(V,D): 2.3 cm2 : 33.4 cm : 26.6 mmHg KRISTAN indexed to BSA Pulm A Revs Dur - MV A (cm^2/m^2): 1.6 Dur: 0.00 msec Electronically signed by: Yessica Hurd on Reading Physician:06/09/2016 02:16 PM
--- NOTE | 2016-06-09 15:32 | PROG NOTE ---
[address] [address] PROGRESS NOTE PATIENT: MARLEEN CAMACHO : 1940 MR#: [id number] ADMIT: 05/31/2016 JOB ID: [id number] DATE: 06/09/2016 REASON FOR FOLLOWUP: Strep intermedius left-sided empyema. INTERVAL HISTORY: When I last saw the patient, she was experiencing a great deal of nausea on her combination regimen of ceftriaxone and Flagyl, so we switched to ertapenem. Since then, her nausea and anorexia have completely resolved and she feels much better. The patient reports no fever, no chills, no sweats. She has no pleuritic chest pain and is very happy that the second of her chest tubes was pulled yesterday. She is having no real cough, no nausea, no vomiting, and no diarrhea. She reports her constipation has finally resolved, however. PHYSICAL EXAMINATION: Reveals an afebrile woman, temp 37.2, pulse 107, respiratory rate 20, blood pressure 99/56. She is saturating well on room air. The patient is awake, alert and a bit emotionally fragile as she started to cry when she thought about the complexities of adding a b.i.d. antibiotic to her current oral medical regimen. Oral cavity is unremarkable. No thrush or pharyngitis. Conjunctivae normal. Lungs with a few crackles at the left base. The chest tube sites appear benign. Abdomen soft and nontender. White count is stable at 13,000, platelets 873. Creatinine 0.34. Recall that the cultures in the pleural space grew Strep anginosus. It is intermediate to clindamycin and so for that reason, clindamycin will not be an option, but it was exquisitely sensitive to penicillins. MRSA screen negative. A repeat chest x-ray shows no residual left pleural effusion and only a small pneumothorax. Some left lower lobe pneumonia persists. IMPRESSION: This patient is doing well overall with respect to her infection situation. Her Strep intermedius empyema has been completely drained and the chest tubes are out with no residual pleural effusion at this point. The questions are the type and duration of ongoing antibiotics. The patient lives with an adult son in [place] [facility]. She would prefer not to have ongoing home IV antibiotic therapy and I think that is a reasonable request as she has been here now 9+ days and it has been a week since her VATS procedure and she has been doing very well. By coincidence, the new [place] [employer] guidelines for empyema management came out today, and I reviewed them in reference to this case. There are no randomized, well-done trials to answer the question as to how long to continue antibiotics with an empyema or even which antibiotics to use. Clindamycin is often the preferred choice, but here we have an organism, Strep intermedius, which only intermediately susceptible to clindamycin and I think that would probably be a poor choice. A backup here would be Augmentin as an oral option. The other option, of course, would be to send her home with IV ertapenem but I do not think that is necessary at this juncture. RECOMMENDATIONS: 1. Will go ahead and add Augmentin at this point, to make sure the patient tolerates it well, as she is worried about tolerability of any treatment. 2. Assuming the patient tolerates her Augmentin doses reasonably well, I think she can be discharged at any time, even later today, to receive the Augmentin for three weeks in addition to the amoxicillin 875 b.i.d. I would add amoxicillin 500 mg p.o. b.i.d., so as to produce a bit higher levels of amoxicillin in the pleural space or using the Augmentin combo here to make certain that any uncultured anaerobes are adequately treated. 3. This case was discussed with Dr. Lombardi. I think this patient can be discharged later today. I would keep her on the IV ertapenem if she should have another dose due in the next few hours just to make sure we give her as much IV therapy as we can before her scheduled discharge. 4. ID will be signing off at this time and I have asked the patient to see me in clinic on June 25, and have given her a card to call for an appointment.
[2016-06-09] MEDS ORDERED: AMOX500C2 PO (15:34)
[2016-06-09] MEDS ORDERED: AMOX-366 PO (15:35)
--- NOTE | 2016-06-09 15:53 | NUR ---
Social Work-readiness for discharge: Data:EMR reviewed. Pt is on day 9 of hospitalization for left Pulmonary effusion per H&P. Pt is not medically stable anticipate tomorrow. Pt has been up ambulating and son working on getting pt at [facility] for home. requesting for pt. SW met with pt to discuss, SW role explained. SW discussed HH services, choice list provided. Pt has no agency preference. SW called [facility] and they do not have any RN services right now. SW called [facility] and provided referral for RN,PT, access given. SW updated pt on agency. ID has seen pt and recommended home with oral abx. F2F in folder. SW will continue to follow. Assessment:Pt who would benefit from services. Plan:Pt to discharge home when medically stable via POV. Referral made to [facility] for RN and Pt, access given. F2F in folder. SW will continue to follow. BANG Ocampo
--- NOTE | 2016-06-09 15:57 | NUR ---
choice list provided. BANG Ocampo
--- NOTE | 2016-06-09 17:37 | PCM.PNMED ---
Subjective Date of Service Jun 09, 2016 Subjective Patient is seen and examined. Once again she is bolused with 1 L of fluids today. Her anxiety is controlled. She is seen by Dr. Negron recommends by mouth antibiotics. She states that she would like to wait until tomorrow a.m. to go home. She has no other concerns. States she is taking her pain medication as needed Exam Vital Signs Vital Sign - Last Date Time Temp Pulse Resp B/P Pulse Ox O2 Delivery O2 Flow Rate FiO2 06/09/16 13:00 36.5 100 16 99/61 94 Room Air 06/08/16 06:15 1.50 Intake and Output 06/08/16 06/08/16 06/09/16 Cumulative From/Thru 15:00 23:00 07:00 05/31/16 13:21 - 06/09/16 06:28 Intake Total 1570 ml 200 ml 02610 ml Output Total 500 ml 600 ml 29042 ml Balance 1070 ml -400 ml -688 ml Intake Oral 500 ml 200 ml 8736 ml IV Total 1070 ml 5359 ml Output Urine Total 600 ml 98373 ml Urine/Stool Mix 500 ml 500 ml Chest Tube Drainage Total 110 ml Drainage Total 1113 ml Estimated Blood Loss 10 ml # Voids 4 2 10 # Bowel Movements 3 10 Exam Gen.: No acute distress Skin: Her area of chest tubes looks clean and dry HEENT: Normocephalic atraumatic Heart: Slightly tachycardic no murmurs or gallop Lungs: Clear to auscultation bilaterally Extremities: Negative for edema Abdomen soft tender nondistended Psychiatric negative for anxiety today IVs and Medications IV Fluids 1 L boluses given this a.m. Medications Reviewed: Medications were reviewed in detail Lab and Diagnostics Result Diagram: 06/09/1647 06/09/16546 Microbiology Thoracentesis fluid: AFB pending. Gram stain negative for organisms. Culture - no growth to date (original thoracentesis grew Streptococcus intermedius) Blood: no growth at 2 days. fungal culture pending. Urine: streptococcus pneumoniae Ag negative Nasopharangeal: MRSA negative serology: Streptozyme 248.5, Cryptococcus Ag negative, fungal antibodies pending . X-Rays, CTs and MRIs X-RAY CHEST, TWO VIEWS ([id number]) IMPRESSION: 1. Large left pleural effusion. No prior studies are available to determine the acuity of this finding. 2. Right basilar atelectasis. Dictated by: Sharri Dumont M.D. on 05/31/2016 at 13:53 Approved by: Sharri Dumont M.D. on 05/31/2016 at 13:54 PROCEDURE: CT CHEST WITHOUT CONTRAST ([id number]) INDICATIONS: Pleural effusion. S/P thoracentesis 10:30. IMPRESSION: 1. Large loculated left-sided pleural effusion is suspicious for possible empyema. 2. Extensive pulmonary consolidation is most suggestive of atelectasis. Superimposed pneumonia cannot be entirely excluded. 3. Small pericardial effusion. Dictated by: Nazario Guardado M.D. on 06/02/2016 at 10:18 Date of Service: 06/04/16 X-RAY CHEST ONE VIEW, PORTABLE IMPRESSION: No pneumothorax on the left, left lower lobe pneumonia, minimal pneumonitis right lung base, superimposed chronic mild interstitial prominence. Dictated by: Jericho Pierson M.D. on 06/04/2016 at 10:05 .Persistent left lower lobe pneumonia with a small triangle of residual pneumothorax after left pleural drain placement, which has not increased in size from the comparison plain film 06/06/16. Relatively large lung volumes, suspect COPD. Slight subpulmonic lateral right pleural effusion. Additional Diagnostics 05/28/2016 thoracentesis labs Protein: 5.1 Glucose: 44 LDH: 533 Amylase: 513 White blood cells: 7072 Red blood cells: 11,020 PATHOLOGY REPORT DATE COLLECTED:06/02/2016 00:00 Pleural Fluid FINAL DIAGNOSIS: PLEURAL FLUID (SIDE NOT SPECIFIED): NEGATIVE FOR MALIGNANT CELLS. NEUTROPHILS, LYMPHOCYTES, AND RARE MESOTHELIAL CELLS ARE PRESENT. . Assessment & Plan Patient is a 75yof who initially presented to [facility] where thoracentesis revealed left-sided pleural effusion demonstrating exudative fluid (05/28). She subsequently worsened with similar symptoms and transferred to [facility] ER (05/31) for further evaluation. 1. Acute exudative pleural effusion secondary to strep intermedius empyema : -- Large Left Empyema s/p left thoracoscopy with decortication and washout (>1200 mL of purulent fluid was aspirated). Lung expanded. Chest tubes in place and draining serosanguinous fluid, will await cultures -- Ceftriaxone, Flagyl or discontinued per ID. The operative for a single agent ertapenem, they also felt nausea was caused by antibiotic Flagyl. Latest thoracentesis fluid culture show pending AFB, strep sensitive to penicillin, ceftriaxone and cefotaxime resistant to clindamycin -- Patient was switched to ertapenem yesterday plan is to have her on it for [address] Cox. We will need a PICC line prior to DC likely on Thursday -- Surgery feels that her lungs are expanding, today's x-ray looked better. They may consider discontinuing the existing tube tomorrow. -- Surgery has removed the remaining tube today on 06/08 and signed off. We appreciate their recommendations and support -- Dr. Negron has switched her to ertapenem 3 days ago. Today he improves by mouth antibiotics with amoxicillin, Augmentin for discharge. Recommends a follow-up on June 25 with him. -- We will continue ertapenem until she goes home. 2. Hypoxia, present on admission Supplemental oxygen, saturating well on 3L by NC: Resolved after the procedure , no longer on oxygen -- Patient is no longer on oxygen06/08 -- Resolved 3. Leukocytosis Still mildly elevated Likely secondary to surgery. Continue to monitor with daily labs. Slowly improving 4. Hyponatremia, present on admission: Resolved #5 Iron deficiency due to chronic hemorrhoids, present on admission: H&H stable. #6 reactive thrombocytosis, present on admission continue to monitor with daily labs #7 acute tachycardia: -- 1 L bolus is given, once again encouraged her to hydrate well -- Encouraged hydration -- Also encouraged her to take her pain medication as needed to stay ahead of the pain, as this will help maintain her heart rate -- Echocardiogram is ordered to address sinus tach: No significant findings -- Improving PLAN - Continue incentive spirometry, encourage patient to breathe deeply several times per day and not suppress her cough Chronic attention deficit the large or continue Adderall medication Chronic anxiety: Continue home medications Xanax, patient is started on new medication BuSpar. Chronic depression: Continue medication Prozac DVT prophylaxis: Holding up chemical prophylaxis due to bleeding risk continue SCDs Disposition: Discharged to home tomorrow . Pain Evaluation: Adequate Pain Control GI Prophylaxis: Not indicated VTE Prophylaxis: Sub-Q Heparin (Unfractionated) VTE Mechanical Devices: Intermittant Pneumatic CD Resuscitation Status: CPR: Attempt Resuscitation Emily Lombardi DO Jun 09, 2016 17:37
--- NOTE | 2016-06-09 18:21 | NUR ---
POST-OP PROGRESS Tylenol/Oxicodone PO has been effective for pain control. Tolerating liquids PO. She drank her Ensure for breakfast but did not want the food from the hospital. Her son brings food from home for dinner and she usually eats this. She ate 50 % of her dinner. Denies nausea. No emesis noted. Denies SOB. PO2 on room air in the mid-high 90's. Ambulated in the hallway with SBA and the FWW. Tolerated activity fairly but needs frequent re-instruction RE: FWW use. Voiding without any problems. [place] alarm is on for safety.
[2016-06-09 20:49] VITALS: BP 92/50; PULSE 107; RESP 16; O2SAT 94
--- NOTE | 2016-06-10 05:38 | PCM.DIMED ---
Discharge Instructions Date of Service Jun 10, 2016 Dates of Hospitalization May 31, 2016 at 19:14 Discharge Diagnosis Discharge Diagnosis Sepsis due to Exudative pleural effusions due to Empyema due to strep intermidium/angiosus, Acute hypoxic Resp Failure, Hyponatremia, Metabolic Acidosis Reactive Throbocytosis, YESSICA due to hemorrhoids, ADHD, Anxiety d/o Medication Instructions You have one new anxiety medication busapr. You are given two antibiotics to be taken twice a day, we recommend a probiotic with these to avoid diarrhea. Please take your pain medication only as needed. It will cause drowsiness, avoid driving if you take them. Diet No restrictions Activity No restrictions Call your provider Fever or Chills, Shortness of breath, Bleeding, Chest pain, Vomitting, Excessive diarrhea, Weakness (unilateral), Other Patient Instructions Follow-up plan Please follow up with PCP in 2 weeks Please follow up with Dr. Cox on 06/25/16 Emily Lombardi DO Jun 10, 2016 05:38
--- NOTE | 2016-06-10 06:09 | NUR ---
Activity Pt reported 4/10 pain to old chest tube site this morning. Oxycodone 5mg given. Pt able to sleep most of shift. Up to BR with OPA and FWW due to unsteadiness. [place] alarm on for safety.
[2016-06-10 06:16] LABS: Mean Corpuscular Volume 83.3 fL (81-100)
[2016-06-10] MEDS: BusPIRone 15 mg Dividose Tablet PO SCH (08:37)
[2016-06-10] MEDS: Amphetamines (Mixed) 10 mg Tablet PO SCH (08:37)
[2016-06-10] MEDS: Ertapenem Inj 1,000 MG in 0.9% Sodium Chloride 50 ML IV SCH (08:37)
[2016-06-10] MEDS: Amoxicillin-Clav 875-125 mg Tablet PO SCH (08:38)
--- NOTE | 2016-06-10 08:58 | NUR ---
MARYBETH signed. BANG Ocampo
[2016-06-10] MEDS ORDERED: FERR-74 PO (11:28)
[2016-06-10 11:29] LABS: Unsaturated Iron Binding 116.7 ug/dL
[2016-06-10] MEDS ORDERED: POLY17PO6 PO (11:29)
--- NOTE | 2016-06-10 11:32 | PCM.DC.MED ---
Discharge Summary Date of Service Jun 10, 2016 Dates of Hospitalization Date of Hospital Admission May 31, 2016 at 19:14 Date of Discharge: Jun 10, 2016 Providers: Admitting Physician: Sarthak Doyle Primary Care Physician: Birgit Ricks PA-C Attending Physician: Sarthak Doyle Diagnosis at Time of Discharge Diagnosis at Time of Discharge Sepsis due to Exudative pleural effusions due to Empyema due to strep intermidium/angiosus, Acute hypoxic Resp Failure, Hyponatremia, Metabolic Acidosis Reactive Throbocytosis, YESSICA due to hemorrhoids, ADHD, Anxiety d/o Procedures XRay, CTs & MRIs X-RAY CHEST, TWO VIEWS ([id number]) IMPRESSION: 1. Large left pleural effusion. No prior studies are available to determine the acuity of this finding. 2. Right basilar atelectasis. Dictated by: Sharri Dumont M.D. on 05/31/2016 at 13:53 Approved by: Shrari Dumont M.D. on 05/31/2016 at 13:54 PROCEDURE: CT CHEST WITHOUT CONTRAST ([id number]) INDICATIONS: Pleural effusion. S/P thoracentesis 10:30. IMPRESSION: 1. Large loculated left-sided pleural effusion is suspicious for possible empyema. 2. Extensive pulmonary consolidation is most suggestive of atelectasis. Superimposed pneumonia cannot be entirely excluded. 3. Small pericardial effusion. Dictated by: Nazario Guardado M.D. on 06/02/2016 at 10:18 Date of Service: 06/04/16 X-RAY CHEST ONE VIEW, PORTABLE IMPRESSION: No pneumothorax on the left, left lower lobe pneumonia, minimal pneumonitis right lung base, superimposed chronic mild interstitial prominence. Dictated by: Jericho Pierson M.D. on 06/04/2016 at 10:05 .Persistent left lower lobe pneumonia with a small triangle of residual pneumothorax after left pleural drain placement, which has not increased in size from the comparison plain film 06/06/16. Relatively large lung volumes, suspect COPD. Slight subpulmonic lateral right pleural effusion. Other Diagnostics 05/28/2016 thoracentesis labs Protein: 5.1 Glucose: 44 LDH: 533 Amylase: 513 White blood cells: 7072 Red blood cells: 11,020 PATHOLOGY REPORT DATE COLLECTED:06/02/2016 00:00 Pleural Fluid FINAL DIAGNOSIS: PLEURAL FLUID (SIDE NOT SPECIFIED): NEGATIVE FOR MALIGNANT CELLS. NEUTROPHILS, LYMPHOCYTES, AND RARE MESOTHELIAL CELLS ARE PRESENT. . Brief History Patient is a 75-year-old female previously healthy with a reported history of hypothyroidism and mild leukopenia who presents from [facility] due to chest pain and shortness of breath with suspect rapid recurrent pleural effusion. The patient had a thoracentesis on 05/28/2016 which was consistent with an exudative pleural effusion with protein of 5.1 and LDH of 533 and glucose 44. Today the patient was being seen at the [facility] primary care clinic by RILEY Ricks for chest pain and shortness of breath over the last day. The chest pain is described as left lower chest, worse with movement and inspiration, sharp in nature and rated as a 2 out of 10. Chest pain improved for one day post thoracentesis and then returned. The patient reports a history of cough starting in April that improved significantly post thoracentesis. The cough was described as nonproductive. The patient was sent directly from the primary care clinic to [facility] ED for evaluation where a chest x-ray showed the large left pleural effusion. The patient denies any fever or chills, night sweats. Associated symptoms include loss of appetite and unintentional weight loss the patient reports a 10 pound weight loss over the last month or 2 as well as a 30 pound weight loss over the last year. The patient reports that trouble with swallowing solid food in her upper throat, stating she is needed fluid to help pass the bolus however denies any vomiting or substernal chest pain with swallowing. Hospital Course Patient is a 75yof who initially presented to [facility] where thoracentesis revealed left-sided pleural effusion demonstrating exudative fluid (05/28). She subsequently worsened with similar symptoms and transferred to [facility] ER (05/31) for further evaluation. 1. Acute exudative pleural effusion secondary to strep intermedius empyema : -- Large Left Empyema s/p left thoracoscopy with decortication and washout (>1200 mL of purulent fluid was aspirated). Lung expanded. Chest tubes in place and draining serosanguinous fluid, will await cultures -- Ceftriaxone, Flagyl or discontinued per ID. The operative for a single agent ertapenem, they also felt nausea was caused by antibiotic Flagyl. Latest thoracentesis fluid culture show pending AFB, strep sensitive to penicillin, ceftriaxone and cefotaxime resistant to clindamycin -- Patient was switched to ertapenem yesterday plan is to have her on it for [address] Cox. We will need a PICC line prior to DC likely on Thursday -- Surgery feels that her lungs are expanding, today's x-ray looked better. They may consider discontinuing the existing tube tomorrow. -- Surgery has removed the remaining tube today on 06/08 and signed off. We appreciate their recommendations and support -- Dr. Negron has switched her to ertapenem 3 days ago. Today he improves by mouth antibiotics with amoxicillin, Augmentin for discharge. Recommends a follow-up on June 25 with him. -- We will continue ertapenem until she goes home. 2. Hypoxia, present on admission Supplemental oxygen, saturating well on 3L by NC: Resolved after the procedure , no longer on oxygen -- Patient is no longer on oxygen06/08 -- Resolved 3. Leukocytosis Still mildly elevated Likely secondary to surgery. Continue to monitor with daily labs. Resolved 4. Hyponatremia, present on admission: Resolved #5 Iron deficiency due to chronic hemorrhoids, present on admission: H&H stable. Iron, THC, ferritin, folate, B12, TSH, T4 are ordered and pending at the time of this discharge. We recommend that PCP follows up on these labs. Patient is given iron supplementation with MiraLAX. Follow-up labs in 1 month I recommended. #6 reactive thrombocytosis, present on admission continue to monitor with daily labs #7 acute tachycardia: -- 1 L bolus is given, once again encouraged her to hydrate well -- Encouraged hydration -- Also encouraged her to take her pain medication as needed to stay ahead of the pain, as this will help maintain her heart rate -- Echocardiogram is ordered to address sinus tach: No significant findings -- Improving PLAN - Continue incentive spirometry, encourage patient to breathe deeply several times per day and not suppress her cough Chronic attention deficit the large or continue Adderall medication Chronic anxiety: Continue home medications Xanax, patient is started on new medication BuSpar. Chronic depression: Continue medication Prozac DVT prophylaxis: Holding up chemical prophylaxis due to bleeding risk continue SCDs Disposition: Discharged to home tomorrow . Exam Vital Signs (Last) Date Time Temp Pulse Resp B/P Pulse Ox O2 Delivery O2 Flow Rate FiO2 06/09/16 20:49 37.0 107 16 92/50 94 Room Air 06/08/16 06:15 1.50 Exam Gen.: No acute distress lying in bed sleeping HEENT: Normocephalic, atraumatic Heart: Regular rate and rhythm no S3-S4 murmurs Lungs much improved from yesterday, no wheezes Abdomen: Soft nontender normal bowel sounds Extremities: No edema Neuro: No focal deficits Psych: Negative for anxiety Test 05/31/16 15:32 05/31/16 20:12 06/01/16 06:25 06/01/16 06:45 Erythrocyte Sedimentation Rate 116mm/hr (0-40) Reticulocyte Count,Calculated 1.1% (0.6-2.6) Prothrombin Time 12.0sec (8.1-12.5) Prothromb Time International Ratio 1.12ratio Lactate Dehydrogenase 154U/L (100-190) Troponin T < 0.010ug/L (0.0-0.011) Pro-B-Type Natriuretic Peptide 588.4pg/mL (0-301) Amylase Level 14U/L (28-100) Hold Farah Top Tube Received (Received) Band Neutrophils % 11% (1-5) Hematology Comments Procalcitonin 0.54ng/mL (0.00-0.08) C-Reactive Protein 33.8mg/dL (0.0-0.5) Test 06/01/16 08:10 06/01/16 08:14 06/01/16 12:15 06/01/16 13:03 Lactic Acid Level 0.9mmol/L (0.4-2.0) Fungal Antibodies <31pg/mL (<80) Urine Legionella pneumophilia Ag Negative (Negative) Urine Color Dark yellow (YELLOW) Urine Appearance Hazy (CLEAR,HAZY) Urine pH 5.5 (5.0-8.0) Urine Specific [place] 1.020 (1.003-1.035) Urine Protein Tracemg/dL (NEG,TRACE) Urine Glucose (UA) Negativemg/dL (NEGATIVE) Urine Ketones Tracemg/dL (NEGATIVE) Urine Occult Blood Trace (NEGATIVE) Urine Nitrite Negative (NEGATIVE) Urine Bilirubin Negative (NEGATIVE) Urine Urobilinogen 2.0mg/dL (NORMAL) Urine Leukocyte Esterase Negative (NEGATIVE) Urine RBC 0-2/hpf (0-2) Urine WBC 0-5/hpf (0-5) Urine Epithelial Cells Occasional/hpf (NONE-MOD) Urine Crystals Amorphous urates (NONE Urine Bacteria None/hpf (NONE-FEW) Urine Hyaline Casts None/lpf (NONE) Urine Granular Casts None seen (NONE SEEN) Urine Waxy Casts None seen (NONE SEEN) Urine Red Blood Cell Casts None seen (NONE SEEN) Urine White Blood Cell Casts None seen (NONE SEEN) Urine Mucus None seen (None Seen) Urine Trichomonas None seen (NONE SEEN) Urine Yeast None (NONE SEEN) Urinalysis Comment None Urine Culture Reflexed Not indicated Test 06/02/16 06:00 06/02/16 10:30 06/02/16 10:42 06/05/16 06:03 Cryptococcus Antigen Negative (Negative) Streptozyme 248.5IU/mL (0.0-200.0) Body Fluid Source Pleural fluid Body Fluid Color Yellow (Clear) Body Fluid Appearance Cloudy Body Fluid pH 7.1 (Not Estab.) Body Fluid WBC 93941/mm3 Body Fluid RBC 59762/mm3 Body Fluid Polynuclear WBCs 80% Body Fluid Lymphocytes 20% Body Fluid Monocytes 0% Body Fluid Eosinophils 0% Body Fluid Basophils 0% Body Fluid Lactate Dehydrogenase 3892U/L Pleural Fluid Total Protein 5.1g/dL Pleural Fluid Glucose < 2mg/dL Hold Urine Received (Received) Total Bilirubin 0.3mg/dL (0.0-1.2) Aspartate Amino Transf (AST/SGOT) 27U/L (0-50) Alanine Aminotransferase (ALT/SGPT) 16U/L (0-32) Alkaline Phosphatase 147U/L (25-165) Total Protein 5.3g/dL (6.4-8.4) Albumin 2.2g/dL (3.4-5.0) Test 06/07/16 06:09 06/10/16 06:00 Neutrophils (%) (Auto) 72.7% (40-74) Lymphocytes (%) (Auto) 9.0% (14-46) Monocytes (%) (Auto) 8.8% (4-12) Eosinophils (%) (Auto) 0.6% (0-5) Basophils (%) (Auto) 0.3% (0-3) White Blood Count 11.7th/mm3 (3.8-10.1) Red Blood Count 3.41mil/mm3 (3.90-5.20) Hemoglobin 9.2g/dL (12.0-15.6) Hematocrit 28.4% (35.0-46.0) Mean Corpuscular Volume 83.3fL (81-100) Mean Corpuscular Hemoglobin 27.0pg (27.0-35.0) Mean Corpuscular Hemoglobin Concent 32.4% (32.0-37.0) Red Cell Distribution Width 14.2% (12.3-15.4) Platelet Count 842bil/L (150-400) Sodium Level 135mEq/L (134-144) Potassium Level 4.0mEq/L (3.5-5.2) Chloride Level 99mEq/L (97-108) Carbon Dioxide Level 24mmol/L (18-29) Blood Urea Nitrogen 4mg/dL (8-27) Creatinine 0.33mg/dL (0.57-1.00) Estimat Glomerular Filtration Rate 280mL/min (>59) Glucose Level 110mg/dL (60-99) Calcium Level 7.9mg/dL (8.5-10.1) Microbiology Results Thoracentesis fluid: AFB pending. Gram stain negative for organisms. Culture - no growth to date (original thoracentesis grew Streptococcus intermedius) Blood: no growth at 2 days. fungal culture pending. Urine: streptococcus pneumoniae Ag negative Nasopharangeal: MRSA negative serology: Streptozyme 248.5, Cryptococcus Ag negative, fungal antibodies pending . Discharge Medications Discharge Medications Amoxicillin (Amoxicillin) 500 Mg Capsule 500 MG PO BID Prescribed by: EMILY SCOTT DO Amoxicillin/Clav K 875-125 mg (Augmentin 875-125 mg) 1 Each Tablet 1 TABLET PO BID Prescribed by: EMILY SCOTT DO Buspirone (Buspirone) 15 Mg Tablet 7.5 MG PO BID Prescribed by: EMILY SCOTT DO Dextroamphetamine/Amphetamine (Adderall) 10 Mg Tablet 10 MG PO DAILY (Reported) Ferrous Sulfate (Feosol) 325 Mg Tablet 325 MG PO BIDWM Prescribed by: EMILY SCOTT DO Fluoxetine (Prozac) 20 Mg Capsule 20 MG PO DAILY (Reported) As needed ([Bisacodyl]) 10 MG SUPP 10 MG RECTAL Q72H PRN PRN For Constipation Prescribed by: EMILY SCOTT DO Alprazolam (Alprazolam) 0.5 Mg Tablet 0.25 MG PO TID PRN PRN For Anxiety or Agitation Prescribed by: EMILY SCOTT DO Polyethylene Glycol 3350 (Miralax) 17 Gm Powd.pack 17 GM PO DAILY PRN PRN PRN Prescribed by: EMILY SCOTT DO oxyCODONE (oxyCODONE) 5 Mg Tablet 5 MG PO Q4H PRN PRN For Pain Prescribed by: EMILY SCOTT DO Additional med instructions You have one new anxiety medication busapr. You are given two antibiotics to be taken twice a day, we recommend a probiotic with these to avoid diarrhea. Please take your pain medication only as needed. It will cause drowsiness, avoid driving if you take them. Followup Plan Follow-up plan Please follow up with PCP in 2 weeks Please follow up with Dr. Cox on 06/25/16 Discharge Diet: No restrictions Discharge Activity: No restrictions Emily Scott DO Jun 10, 2016 11:32
[2016-06-10 13:04] VITALS: BP 98/55; PULSE 101; RESP 16; O2SAT 95
--- NOTE | 2016-06-10 13:20 | NUR ---
Social Work-discharge: Data:EMR Reviewed. Pt is on day 10 of hospitalization for left pulmonary effusion per H&P. Pt is medically stable for discharge. Pt has been up ambulating the hallways. OSCAR confirmed with pt at bedside plan of home with [facility]. SW provided pt with DME list and son to picker and packer Fww at [facility]. [facility] has cleared pt to return home on oral abx. OSCAR called Tejinder Good with [facility] and informed him of discharge and faxed in F2F and orders for RN and Pt. Pt's family to provide transport home today. All updated and agreeable to plan. Assessment:Pt who would benefit from HH. Plan:Pt to discharge home today via POV. Son to obtain Fww from [facility]. F2F and orders faxed into [facility] for RN and PT. Pt to return home on Oral abx. All updated and agreeable to plan. Brandy Mirza MSW
--- NOTE | 2016-06-10 16:48 | NUR ---
DC: Pt given all dc instructions while son at bedside. All scripts given and medication timing gone over. Iv SL dc'd cannula intact. Taken out to private vehicle by RN at approx 1609.
== END 2016-06-10 16:09 | disposition home health service (06) | DRG 853 ==
LOC: SED 13:18 → OSC 19:14
PROVIDERS: ADMIT Internal Medicine; ATTEND Hospitalist
PROC: 0W9B3ZX Drainage of Left Pleural Cavity, Percutaneous Approach, Diagnostic (ICD-10-PCS; 2016-06-02)
PROC: 4A033R1 Measurement of Arterial Saturation, Peripheral, Percutaneous Approach (ICD-10-PCS; 2016-06-02)
PROC: 0BDP4ZZ Extraction of Left Pleura, Percutaneous Endoscopic Approach (ICD-10-PCS; principal; 2016-06-03)
PROC: 0W9B30Z Drainage of Left Pleural Cavity with Drainage Device, Percutaneous Approach (ICD-10-PCS; 2016-06-03)
DX: A41.9 Sepsis, unspecified organism (principal); J86.9 Pyothorax without fistula; J96.01 Acute respiratory failure with hypoxia; J90 Pleural effusion, not elsewhere classified; E87.1 Hypo-osmolality and hyponatremia; E87.2 Acidosis; B95.4 Other streptococcus as the cause of diseases classified elsewhere; D47.3 Essential (hemorrhagic) thrombocythemia; E03.9 Hypothyroidism, unspecified; F90.9 Attention-deficit hyperactivity disorder, unspecified type; F41.9 Anxiety disorder, unspecified; F32.9 Major depressive disorder, single episode, unspecified; D50.9 Iron deficiency anemia, unspecified; R00.0 Tachycardia, unspecified